=== PATIENT | male | born 1935 | race Caucasian/White ===

== ENCOUNTER 2017-06-14 18:38 | Emergency (ER) | payer OTHER ==
[2017-06-14 19:19] VITALS: BP 143/81; PULSE 82; TEMP 97.7; BMI 21.4
--- NOTE | 2017-06-14 19:53 | PDOC ---
History of Present Illness - General Chief Complaint: Wound Stated Complaint: SCROTAL BLEED Time Seen by Provider: 06/14/17 19:15 History Source: Patient - History of Present Illness Initial Comments: 06/14/17 19:48 82 year old male resident of "[facility]" with history of hypertension, BPH prior to arrival noted scrotal bleed from a varicosity?. currently no active bleeding. patient also noted to have skin irritation around the umbilicus. denies scrotal pain, penile pain, urinary symptoms. Past History - Past Medical History Allergies/Adverse Reactions: Allergies Allergy/AdvReac Type Severity Reaction Status Date / Time No Known Allergies Allergy Verified 06/14/17 18:46 Home Medications: Ambulatory Orders Aspirin 81 mg PO DAILY 06/14/17 Calcium Carbonate [Oyster Shell Calcium] 500 mg PO DAILY 06/14/17 Cholecalciferol (Vitamin D3) [Vitamin D3 -] 1,000 unit PO DAILY 06/14/17 Docusate Sodium [Colace] 200 mg PO DAILY PRN 06/14/17 Ferrous Sulfate [Iron] 325 mg PO DAILY 06/14/17 Finasteride [Proscar] 5 mg PO DAILY 06/14/17 Hypromellose 0.5% Opth Soln [Artificial Tears] 1 drop OU DAILY 06/14/17 Lisinopril [Prinivil -] 40 mg PO DAILY 06/14/17 Loratadine [Claritin -] 10 mg PO DAILY 06/14/17 Nystatin/Triamcinolone Top Cr [Mycolog II -] 1 applic TP TID #1 tube 06/14/17 Nystatin/Triamcinolone Top Cr [Mycolog II -] 1 gm TP BID #1 tube 06/14/17 Oxymetazoline 0.05% Nasal Soln [Afrin -] 2 spray NS BID 06/14/17 Tamsulosin HCl [Flomax] 0.4 mg PO DAILY 06/14/17 COPD: No Dementia: Yes Disorders: Yes (prostatitis) HTN: Yes Other medical history: bilat detached retinas - Suicide/Smoking/Psychosocial Hx Smoking History: Unknown if ever smoked *Physical Exam - Vital Signs Last Vital Signs Temp Pulse Resp BP Pulse Ox 97.7 F 82 18 143/81 98 06/14/17 19:05 06/14/17 19:05 06/14/17 19:05 06/14/17 19:05 06/14/17 19:05 - Physical Exam General Appearance: Yes: Appropriately Dressed Gastrointestinal/Abdominal: positive: Normal Bowel Sounds, Soft Male Genitalia: positive: normal genitalia, other (rectal area external hemorrhoid no active bleeding noted. ) Extremity: positive: Normal Capillary Refill, Normal Inspection, Normal Range of Motion Integumentary: positive: Erythema (and moist umbilicus "fungal appearance") Neurologic: positive: Fully Oriented, Alert, Normal Mood/Affect Medical Decision Making - Medical Decision Making 06/14/17 20:10 Scrotal skin irritation; umbilical angely infection P: bacitracin mycolog II pmd follow up *DC/Admit/Observation/Transfer Diagnosis at time of Disposition: Umbilical discharge, Candidal dermatitis - Discharge Dispostion Disposition: HOME - Prescriptions Prescriptions: Bacitracin - [Bacitracin Topical Ointment -] 1 applic TP BID #1 tube Nystatin/Triamcin [Nystatin-Triamcinolone Cream] 1 applic TP QID #1 tube - Referrals Referrals: Mai Camargo MD [Primary Care Provider] - - Patient Instructions Printed Discharge Instructions: DI for Wound Infection Additional Instructions: apply nystatin / traimcinolone 3- 4 times daily to the umbilical area apply bacitracin 3 times daily to the scrotal area. - Post Discharge Activity
== END 2017-06-14 20:47 ==
LOC: JER 18:38
DX: I86.1 Scrotal varices (principal); B37.2 Candidiasis of skin and nail; I10 Essential (primary) hypertension; N40.0 Benign prostatic hyperplasia without lower urinary tract symptoms
CPT/HCPCS: 99281-25

== ENCOUNTER 2017-08-31 17:15 | Emergency (ER) | payer OTHER ==
[2017-08-31 17:44] VITALS: TEMP 98.1; BMI 19.6
--- NOTE | 2017-08-31 18:07 | PDOC ---
Attending Attestation - Resident Resident Name: Parag Perez - ED Attending Attestation I have performed the following: I have examined & evaluated the patient, The case was reviewed & discussed with the resident, I agree w/resident's findings & plan, Exceptions are as noted
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
[2017-08-31 21:02] VITALS: BP 130/54; PULSE 84
== END 2017-08-31 21:09 | disposition home or self-care (01) ==
LOC: JER 17:15
DX: S01.81XA Laceration without foreign body of other part of head, initial encounter (principal); S00.83XA Contusion of other part of head, initial encounter; S40.022A Contusion of left upper arm, initial encounter; Y04.2XXA Assault by strike against or bumped into by another person, initial encounter; Y93.89 Activity, other specified; Y92.128 Other place in nursing home as the place of occurrence of the external cause; I10 Essential (primary) hypertension; F03.90 Unspecified dementia, unspecified severity, without behavioral disturbance, psychotic disturbance, mood disturbance, and anxiety; N41.8 Other inflammatory diseases of prostate; Z79.82 Long term (current) use of aspirin
CPT/HCPCS: 70450-TC; 70486-TC; 73060-TC-LT-FY; 99283-25

== ENCOUNTER 2017-10-11 07:41 | Inpatient (IN) | payer OTHER ==
--- NOTE | 2017-10-11 07:49 | PDOC ---
History of Present Illness - General Chief Complaint: Injury Stated Complaint: FALL Time Seen by Provider: 10/11/17 07:48 - History of Present Illness Initial Comments: 10/11/17 08:01 Ms. Márquez is an 82 yo male w/ pmh of HTN and dementia who presents for evaluation of fall this morning. He reports he was walking to the bathroom when he had a mechanical fall and now has left sided leg pain. He usually ambulates with a rolater. Denies hitting his head or LOC. The patient denies chest pain, shortness of breath, headache and dizziness. Denies fever, chills, nausea, vomit, diarrhea and constipation. Denies dysuria, frequency, urgency and hematuria. Allergies: NKDA Past History - Past Medical History Allergies/Adverse Reactions: Allergies Allergy/AdvReac Type Severity Reaction Status Date / Time No Known Allergies Allergy Verified 10/11/17 07:50 Home Medications: Ambulatory Orders Aspirin 81 mg PO DAILY 06/14/17 Calcium Carbonate [Oyster Shell Calcium] 500 mg PO DAILY 06/14/17 Cholecalciferol (Vitamin D3) [Vitamin D3 -] 1,000 unit PO DAILY 06/14/17 Docusate Sodium [Colace] 200 mg PO DAILY PRN 06/14/17 Ferrous Sulfate [Iron] 325 mg PO DAILY 06/14/17 Finasteride [Proscar] 5 mg PO DAILY 06/14/17 Lisinopril [Prinivil -] 40 mg PO DAILY 06/14/17 Loratadine [Claritin -] 10 mg PO DAILY 06/14/17 Nystatin/Triamcinolone Top Cr [Mycolog II -] 1 gm TP BID #1 tube 06/14/17 Oxymetazoline 0.05% Nasal Soln [Afrin -] 2 spray NS BID 06/14/17 Tamsulosin HCl [Flomax] 0.4 mg PO DAILY 06/14/17 Bacitracin - [Bacitracin Topical Ointment -] 1 applic TP TID #1 applic 06/15/17 COPD: No Dementia: Yes Disorders: Yes (prostatitis) HTN: Yes - Suicide/Smoking/Psychosocial Hx Smoking History: Never smoked Have you smoked in the past 12 months: No Hx Alcohol Use: No Drug/Substance Use Hx: No Substance Use Type: None Review of Systems - Review of Systems Comments:: 10/11/17 09:00 GENERAL/CONSTITUTIONAL: No fever or chills. No weakness. HEAD, EYES, EARS, NOSE AND THROAT: No change in vision. No ear pain or discharge. No sore throat. CARDIOVASCULAR: No chest pain or shortness of breath RESPIRATORY: No cough, wheezing, or hemoptysis. GASTROINTESTINAL: No nausea, vomiting, diarrhea or constipation. GENITOURINARY: No dysuria, frequency, or change in urination. MUSCULOSKELETAL: +Left sided leg pain; difficulty ranging leg at this time. No neck or back pain. SKIN: No rash NEUROLOGIC: No headache, vertigo, loss of consciousness, or change in strength/ sensation. ENDOCRINE: No increased thirst. No abnormal weight change HEMATOLOGIC/LYMPHATIC: No anemia, easy bleeding, or history of blood clots. ALLERGIC/IMMUNOLOGIC: No hives or skin allergy. *Physical Exam - Physical Exam Comments: 10/11/17 09:00 GENERAL: Awake, alert, and fully oriented, in no acute distress HEAD: No signs of trauma, normocephalic, atraumatic EYES: PERRLA, EOMI, sclera anicteric, conjunctiva clear ENT: Auricles normal inspection, hearing grossly normal, nares patent, oropharynx clear without exudates. Moist mucosa NECK: Normal ROM, supple, no lymphadenopathy, JVD, or masses LUNGS: No distress, speaks full sentences, clear to auscultation bilaterally HEART: Regular rate and rhythm, normal S1 and S2, no murmurs, rubs or gallops, peripheral pulses normal and equal bilaterally. ABDOMEN: Soft, nontender, normoactive bowel sounds. No guarding, no rebound. No masses EXTREMITIES: +Difficulty ranging due to pain of left leg. Otherwise normal inspection, no edema. No clubbing or cyanosis. NEUROLOGICAL: Cranial nerves II through XII grossly intact. Normal speech, normal gait, no focal sensorimotor deficits SKIN: Warm, Dry, normal turgor, no rashes or lesions noted. Medical Decision Making - Medical Decision Making 10/11/17 12:45 Mr. Márquez is an 82 yo male w/ pmh as described who presents for evaluation post fall. Imaging entirely negative for acute process. Patient unable to walk at this time, however. Paging inpatient team for admission for further ambulatory observation. *DC/Admit/Observation/Transfer Diagnosis at time of Disposition: Unable to ambulate Fall Qualifiers: Encounter type: initial encounter Qualified Code(s): W19.XXXA - Unspecified fall, initial encounter - Discharge Dispostion Condition at time of disposition: Fair Decision to Admit order: Yes - Referrals Referrals: ON STAFF,NOT [Primary Care Provider] - - Patient Instructions Printed Discharge Instructions: How to Prevent Falls Additional Instructions: Please return to ER if any difficulty walking, fever, chills, altered mental status, or other concerning symptoms. Follow-up with primary care provider as needed for further evaluation. - Post Discharge Activity
--- NOTE | 2017-10-11 07:59 | PDOC ---
Attending Attestation - HPI HPI: 10/11/17 08:22 The patient is a 82 year old male, from [facility], with a significant past medical history of hypertension and dementia, who presents to the emergency department s/p unwitnessed mechanical fall earlier this morning. The patient reports he was ambulating to the bathroom with his walker, when suddenly he lost his balance and fell, landing on his left leg. He reports associated left leg pain, but denies any head trauma, LOC changes in vision, headache, dizziness, lightheadedness, neck/back/ or hip pain. He denies any other injuries. Allergies: NKDA - Medical Decision Making 10/11/17 08:22 Documentation prepared by Gee Bui, acting as behavioral medical director for Rosario Anna MD. <Gee Bui - Last Filed: 10/11/17 08:43> - Resident Resident Name: Carlos Morales - ED Attending Attestation I have performed the following: I have examined & evaluated the patient, The case was reviewed & discussed with the resident, I agree w/resident's findings & plan, Exceptions are as noted - Physicial Exam PE: GENERAL: Awake, alert, and fully oriented, in no acute distress HEAD: Small ecchymosis to the L cheek. EYES: PERRLA, EOMI, sclera anicteric, conjunctiva clear ENT: Auricles normal inspection, hearing grossly normal, nares patent, oropharynx clear without exudates. Moist mucosa NECK: Normal ROM, supple, no lymphadenopathy, JVD, or masses LUNGS: Breath sounds equal, clear to auscultation bilaterally. No wheezes, and no crackles HEART: Regular rate and rhythm, normal S1 and S2, no murmurs, rubs or gallops ABDOMEN: Soft, nontender, normoactive bowel sounds. No guarding, no rebound. No masses EXTREMITIES: +Ecchymoses to B/L hips and R knee with skin abrasions to the knees B/L. Normal range of motion. 1+ pitting edema to feet B/L. No clubbing or cyanosis. No cords, erythema, or tenderness. NEUROLOGICAL: Cranial nerves II through XII grossly intact. Normal speech. Strength and sensation intact. SKIN: Warm, Dry, normal turgor, no rashes or lesions noted. - Medical Decision Making Pt presents s/p mechanical fall, hit both hips and his head. Will obtain LE x- rays as well as CTH and c-spine. If wnl, will DC home. <Rosario Anna - Last Filed: 10/11/17 10:20>
[2017-10-11] MEDS ORDERED: ACETAMINOPHEN 500 MG TABLET (FP) PO ONE (08:14)
[2017-10-11] MEDS ORDERED: ACETAMINOPHEN 325 MG TABLET (FP) ONE (08:22)
[2017-10-11 15:53] LABS: URINE APPEARANCE SLCLOUDY; URINE BILIRUBIN NEGATIVE (<2.0 mg/dL); URINE COLOR DKYELLOW; URINE GLUCOSE (UA) NEGATIVE (NEGATIVE); URINE KETONE NEGATIVE (NEGATIVE); URINE LEUK ESTERASE NEGATIVE (NEGATIVE); URINE NITRITE NEGATIVE (NEGATIVE); URINE UROBILINOGEN NEGATIVE mg/dL (0.2-1.0)
[2017-10-11 15:54] LABS: URINE PROTEIN 2+ (NEGATIVE)
[2017-10-11 16:00] LABS: BASO % 0.1 % (0-2.0); EOS % 0.1 % (0-4.5); HEMATOCRIT 35.7 % (35.4-49); HEMOGLOBIN 11.8 GM/dL (11.7-16.9); LYMPH % 62.2 % (8-40); MCH 33.2 pg (25.7-33.7); MCHC 33.1 g/dl (32.0-35.9); MEAN CELL VOLUME 100.1 fl (80-96); MEAN PLT VOLUME 9.5 fl (7.5-11.1); NEUT % 34.6 % (42.8-82.8); RBC 3.57 M/mm3 (4.00-5.60); RDW 15.8 % (11.9-15.9); WHITE BLOOD COUNT 22.7 K/mm3 (4.0-10.0)
[2017-10-11 16:38] LABS: ALBUMIN 2.7 g/dl (3.4-5.0); ANION GAP 10 (8-16); BLOOD UREA NITROGEN 38 mg/dL (7-18); CALCIUM 8.6 mg/dL (8.5-10.1); CHLORIDE 107 mmol/L (98-107); CO2 23 mmol/L (21-32); CREATININE 2.3 mg/dL (0.7-1.3); GLUCOSE,RANDOM 78 mg/dL (74-106); POTASSIUM 4.5 mmol/L (3.5-5.1); SGOT/AST 89 U/L (15-37); SGPT/ALT 34 U/L (12-78); SODIUM 140 mmol/L (136-145)
[2017-10-11 16:51] LABS: ALK PHOS 149 U/L (45-117); BILIRUBIN,TOTAL 2.6 mg/dL (0.2-1.0); TOT PROT 7.7 g/dl (6.4-8.2)
[2017-10-11 17:06] LABS: URINE BACTERIA RARE /hpf (NONE SEEN); URINE MUCUS RARE
[2017-10-11] MEDS ORDERED: DOCUSATE SODIUM 100 MG CAPSULE (FP) PO PRN (20:05)
[2017-10-11] MEDS ORDERED: ACETAMINOPHEN 325 MG TABLET (FP) PO PRN (20:06)
--- NOTE | 2017-10-11 20:13 | HP ---
Admitting History and Physical - Primary Care Physician PCP: Khanh Vargas - Admission Chief Complaint: fall History of Present Illness: 82 year old male, from [facility], with a significant past medical history of hypertension and dementia, who presents to the emergency department s/p unwitnessed mechanical fall earlier this morning. The patient reports he was ambulating to the bathroom with his walker, when suddenly he lost his balance and fell, landing on his left leg. He reports associated left leg pain, but denies any head trauma, LOC changes in vision, headache, dizziness, lightheadedness, neck/back/ or hip pain. He denies any other injuries. 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 Cardiovascular: Yes: HTN - Advance Directives Advance Directives: Yes: MOLST - Smoking History Smoking history: Never smoked Have you smoked in the past 12 months: No Aproximately how many cigarettes per day: 0 - Alcohol/Substance Use Hx Alcohol Use: No Home Medications - Allergies Allergies/Adverse Reactions: Allergies Allergy/AdvReac Type Severity Reaction Status Date / Time No Known Allergies Allergy Verified 10/11/17 07:50 - Home Medications Home Medications: Ambulatory Orders Aspirin 81 mg PO DAILY 06/14/17 Calcium Carbonate [Oyster Shell Calcium] 500 mg PO DAILY 06/14/17 Cholecalciferol (Vitamin D3) [Vitamin D3 -] 1,000 unit PO DAILY 06/14/17 Docusate Sodium [Colace] 200 mg PO DAILY PRN 06/14/17 Ferrous Sulfate [Iron] 325 mg PO DAILY 06/14/17 Finasteride [Proscar] 5 mg PO DAILY 06/14/17 Lisinopril [Prinivil -] 40 mg PO DAILY 06/14/17 Loratadine [Claritin -] 10 mg PO DAILY 06/14/17 Nystatin/Triamcinolone Top Cr [Mycolog II -] 1 gm TP BID #1 tube 06/14/17 Oxymetazoline 0.05% Nasal Soln [Afrin -] 2 spray NS BID 06/14/17 Tamsulosin HCl [Flomax] 0.4 mg PO DAILY 06/14/17 Bacitracin - [Bacitracin Topical Ointment -] 1 applic TP TID #1 applic 06/15/17 Physical Examination Vital Signs: Vital Signs Temperature 97.8 F 10/11/17 15:53 Pulse Rate 97 H 10/11/17 15:53 Respiratory Rate 16 10/11/17 15:53 Blood Pressure 127/74 10/11/17 15:53 O2 Sat by Pulse Oximetry (%) 99 10/11/17 15:53 Constitutional: Yes: Calm HENT: Yes: Atraumatic Neck: Yes: Supple Cardiovascular: Yes: Regular Rate and Rhythm Respiratory: Yes: CTA Bilaterally Gastrointestinal: Yes: Normal Bowel Sounds Extremities: Yes: Other (abrasion on both knees old healing bruises and rash on both legs more on left leg and left groin) Edema: Yes Edema: LLE: 1+ Peripheral Pulses WNL: Yes Neurological: Yes: Alert Labs: CBC, BMP 10/11/17 15:35 10/11/17 15:35 Assessment/Plan Laboratory Tests 10/11/17 10/11/17 10/11/17 15:35 15:35 15:35 WBC 22.7 H RBC 3.57 L Hgb 11.8 Hct 35.7 MCV 100.1 H MCH 33.2 MCHC 33.1 RDW 15.8 MPV 9.5 Absolute Neuts (auto) 7.8 Neutrophils % 34.6 L Lymphocytes % 62.2 H Monocytes % 3.0 L Eosinophils % 0.1 Basophils % 0.1 Nucleated RBC % 0 Sodium 140 Potassium 4.5 Chloride 107 Carbon Dioxide 23 Anion Gap 10 BUN 38 H Creatinine 2.3 H Creat Clearance w eGFR 27.29 Random Glucose 78 Calcium 8.6 Total Bilirubin 2.6 H AST 89 H ALT 34 Alkaline Phosphatase 149 H Creatine Kinase 1448 H Creatine Kinase Index 1.1 CK-MB (CK-2) 17.215 H Troponin I 0.09 H Total Protein 7.7 Albumin 2.7 L Urine Color Dkyellow Urine Appearance Slcloudy Urine pH 5.0 Ur Specific Bimble 1.021 Urine Protein 2+ H Urine Glucose (UA) Negative Urine Ketones Negative Urine Blood 3+ H Urine Nitrite Negative Urine Bilirubin Negative Urine Urobilinogen Negative Ur Leukocyte Esterase Negative Urine WBC (Auto) 2 Urine RBC (Auto) 2 Urine Bacteria Rare Urine Mucus Rare Active Medications Generic Name Dose Route Start Last Admin Trade Name Freq PRN Reason Stop Dose Admin Acetaminophen 650 mg 10/11/17 20:06 Tylenol - PO Q6H PRN FEVER Aspirin 81 mg 10/12/17 10:00 Asa - PO DAILY DAVIDA Bacitracin 1 applic 10/11/17 22:00 Bacitracin - TP TID [facility] Docusate Sodium 200 mg 10/11/17 20:05 Colace - PO DAILY PRN CONSTIPATION Finasteride 5 mg 10/12/17 10:00 Proscar - PO DAILY [facility] Non-Formulary Medication 40 mg 10/12/17 10:00 Lisinopril [Prinivil -] PO DAILY [facility] Tamsulosin HCl 0.4 mg 10/12/17 10:00 Flomax - PO DAILY DAVIDA
[2017-10-11 21:36] LABS: PLATELET COUNT 39 K/MM3 (134-434)
[2017-10-11 21:37] LABS: PLATELET ESTIMATE MOD DECREASED
[2017-10-11] MEDS ORDERED: cefTRIAXone SODIUM 1 GM VIAL ONE (22:17)
[2017-10-11] MEDS ORDERED: DEXTROSE 5%-WATER - 50 ML IVPB ONE (22:17)
[2017-10-11] MEDS: SODIUM CHLORIDE 1,000 ML IV SCH (22:19)
[2017-10-11] MEDS: BACITRACIN 15 GM TUBE TOPICAL OINTMENT TP SCH (22:20)
[2017-10-11] MEDS: CEFTRIAXONE 1 GM in DEXTROSE 5%-WATER - 50 ML IVPB SCH (22:24)
[2017-10-12] MEDS: BACITRACIN 15 GM TUBE TOPICAL OINTMENT TP SCH ×3 (05:57→21:14)
[2017-10-12 06:58] LABS: BASO % 0.1 % (0-2.0); EOS % 0.1 % (0-4.5); HEMATOCRIT 32.8 % (35.4-49); HEMOGLOBIN 10.7 GM/dL (11.7-16.9); LYMPH % 75.2 % (8-40); MCH 32.7 pg (25.7-33.7); MCHC 32.8 g/dl (32.0-35.9); MEAN CELL VOLUME 99.8 fl (80-96); MEAN PLT VOLUME 10.2 fl (7.5-11.1); MONO % 3.2 % (3.8-10.2); NEUT % 21.4 % (42.8-82.8); RBC 3.28 M/mm3 (4.00-5.60); RDW 16.1 % (11.9-15.9)
[2017-10-12 07:08] LABS: PLATELET COUNT 32 K/MM3 (134-434); WHITE BLOOD COUNT 37.2 K/mm3 (4.0-10.0)
[2017-10-12 07:17] LABS: ALBUMIN 2.1 g/dl (3.4-5.0); BLOOD UREA NITROGEN 51 mg/dL (7-18); CALCIUM 8.3 mg/dL (8.5-10.1); CHLORIDE 108 mmol/L (98-107); POTASSIUM 4.1 mmol/L (3.5-5.1); SODIUM 140 mmol/L (136-145)
[2017-10-12 07:22] LABS: ALK PHOS 92 U/L (45-117); ANION GAP 14 (8-16); CO2 18 mmol/L (21-32); CREATININE 2.6 mg/dL (0.7-1.3); GLUCOSE,RANDOM 53 mg/dL (74-106); SGOT/AST 84 U/L (15-37); SGPT/ALT 29 U/L (12-78); TOT PROT 6.5 g/dl (6.4-8.2)
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
[2017-10-12] MEDS ORDERED: cefTRIAXone SODIUM 1 GM VIAL ONE (08:20)
[2017-10-12] MEDS ORDERED: DEXTROSE 5%-WATER - 50 ML IVPB ONE ×3 (08:20→16:47)
[2017-10-12] MEDS: oxyCODONE HCL 5 MG TABLET PO PRN (09:48)
[2017-10-12] MEDS: TAMSULOSIN HCL 0.4 MG CAP.ER.24H (FP) PO SCH (09:51)
[2017-10-12] MEDS: CEFTRIAXONE 1 GM in DEXTROSE 5%-WATER - 50 ML IVPB SCH (09:52)
[2017-10-12] MEDS ORDERED: LISINOPRIL 20 MG TABLET (FP) PO SCH (10:00)
[2017-10-12] MEDS ORDERED: ASPIRIN 81 MG CHEWABLE TABLETS PO SCH (10:00)
[2017-10-12] MEDS ORDERED: FINASTERIDE 5 MG TABLET (FP) PO SCH (10:00)
[2017-10-12] MEDS: metoPROLOL SUCCINATE 25 MG TAB.SR.24H (FP) PO SCH (11:29)
[2017-10-12] MEDS ORDERED: SODIUM CHLORIDE 250 ML IV ONE ×2 (11:45→13:00)
--- NOTE | 2017-10-12 13:13 | CONSULT ---
Consult Consult Specialty:: Hematology - History of Present Illness History of Present Illness: 82 year old s/p fall. Is here from [place]. 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 Cardio/Vascular: Yes: HTN - Alcohol/Substance Use Hx Alcohol Use: No - Smoking History Smoking history: Never smoked Have you smoked in the past 12 months: No Aproximately how many cigarettes per day: 0 Home Medications - Allergies Allergies/Adverse Reactions: Allergies Allergy/AdvReac Type Severity Reaction Status Date / Time No Known Allergies Allergy Verified 10/11/17 07:50 - Home Medications Home Medications: Ambulatory Orders Aspirin 81 mg PO DAILY 06/14/17 Calcium Carbonate [Oyster Shell Calcium] 500 mg PO DAILY 06/14/17 Cholecalciferol (Vitamin D3) [Vitamin D3 -] 1,000 unit PO DAILY 06/14/17 Docusate Sodium [Colace] 200 mg PO DAILY PRN 06/14/17 Ferrous Sulfate [Iron] 325 mg PO DAILY 06/14/17 Finasteride [Proscar] 5 mg PO DAILY 06/14/17 Lisinopril [Prinivil -] 40 mg PO DAILY 06/14/17 Loratadine [Claritin -] 10 mg PO DAILY 06/14/17 Nystatin/Triamcinolone Top Cr [Mycolog II -] 1 gm TP BID #1 tube 06/14/17 Oxymetazoline 0.05% Nasal Soln [Afrin -] 2 spray NS BID 06/14/17 Tamsulosin HCl [Flomax] 0.4 mg PO DAILY 06/14/17 Bacitracin - [Bacitracin Topical Ointment -] 1 applic TP TID #1 applic 06/15/17 Family Disease History - Family Disease History Family Disease History: CA: Mother (pancreatic CA) Other Family History: History of CAD and [place] Physical Exam Vital Signs: Vital Signs Temperature 99.6 F 10/12/17 09:03 Pulse Rate 98 H 10/12/17 11:30 Respiratory Rate 20 10/12/17 11:30 Blood Pressure 80/50 10/12/17 11:30 O2 Sat by Pulse Oximetry (%) 93 L 10/12/17 05:25 Constitutional: Yes: Calm, Thin Eyes: Yes: Conjunctiva Clear HENT: Yes: Atraumatic, Normocephalic Neck: Yes: Supple Cardiovascular: Yes: Regular Rate and Rhythm Respiratory: Yes: Regular, CTA Bilaterally Gastrointestinal: Yes: Normal Bowel Sounds, Soft Labs: CBC, BMP 10/12/17 05:50 10/12/17 05:50 Assessment/Plan Leucocytosis/Thrombocytopenia: Check LDH/B12/folate/SPEP/FLOW/FISH check coags r/o sepsis, ID consult. US Abdomen. Unknown baseline counts JOHANA?CKD consider renal c/s Hyper Bili: Check direct bili consider GI eval. Pt with dementia.
--- NOTE | 2017-10-12 13:18 | EKG ---
Test Reason : Blood Pressure : / mmHG Vent. Rate : 105 BPM Atrial Rate : 105 BPM P-R Int : 180 ms QRS Dur : 084 ms QT Int : 314 ms P-R-T Axes : 073 -30 055 degrees QTc Int : 415 ms SINUS TACHYCARDIA NONSPECIFIC ST AND T WAVE ABNORMALITY ABNORMAL ECG NO PREVIOUS ECGS AVAILABLE Confirmed by MD CAROLEE, BLAIR ([id number]) on 10/12/2017 1:17:34 PM Referred By: Confirmed By:BLAIR ZARCO MD
[2017-10-12] MEDS ORDERED: PIPERACILLIN/TAZOBACTAM 2.25 GM VIAL IVPB ONE ×2 (13:28→16:47)
[2017-10-12] MEDS: PIPERACILLIN/TAZOB 2.25 GM 2.25 GM in DEXTROSE 5%-WATER - 50 ML IVPB SCH ×2 (13:57→17:54)
[2017-10-12 14:00] LABS: INR 1.55 (0.82-1.09); PROTHROMBIN TIME (PATIENT) 17.5 SEC (9.7-13.0)
[2017-10-12 14:05] LABS: BILIRUBIN,DIRECT 0.9 mg/dL (0.0-0.2)
[2017-10-12] MEDS: CLINDAMYCIN 300 MG PREMIX IVPB 300 MG/50 ML BAG IVPB SCH ×2 (15:01→17:53)
[2017-10-12 16:24] LABS: URINE APPEARANCE CLOUDY; URINE BILIRUBIN NEGATIVE (<2.0 mg/dL); URINE COLOR AMBER; URINE GLUCOSE (UA) NEGATIVE (NEGATIVE); URINE KETONE NEGATIVE (NEGATIVE); URINE LEUK ESTERASE NEGATIVE (NEGATIVE); URINE NITRITE NEGATIVE (NEGATIVE); URINE UROBILINOGEN NEGATIVE mg/dL (0.2-1.0)
[2017-10-12 16:51] LABS: URINE PROTEIN 2+ (NEGATIVE)
[2017-10-12 16:56] LABS: EPI CELLS RARE /HPF (FEW); URINE BACTERIA RARE /hpf (NONE SEEN); URINE MUCUS RARE
--- NOTE | 2017-10-12 19:41 | PN ---
Progress Note, Physician History of Present Illness: comfortable - Current Medication List Current Medications: Active Medications Acetaminophen (Tylenol -) 650 mg PO Q6H PRN PRN Reason: FEVER Last Admin: 10/12/17 09:49 Dose: 650 mg Aspirin (Asa -) 81 mg PO DAILY [facility] Last Admin: 10/12/17 09:51 Dose: 81 mg Bacitracin (Bacitracin -) 1 applic TP TID [facility] Last Admin: 10/12/17 13:57 Dose: 1 applic Docusate Sodium (Colace -) 200 mg PO DAILY PRN PRN Reason: CONSTIPATION Finasteride (Proscar -) 5 mg PO DAILY [facility] Last Admin: 10/12/17 09:51 Dose: 5 mg Sodium Chloride (Normal Saline -) 1,000 mls @ 100 mls/hr IV ASDIR [facility] Last Admin: 10/11/17 22:19 Dose: 75 mls/hr Clindamycin Phosphate (Cleocin 300 Mg Premix Ivpb) 300 mg in 50 mls @ 100 mls/ hr IVPB Q8H-IV [facility]; Protocol Last Admin: 10/12/17 17:53 Dose: 100 mls/hr Piperacillin Sod/Tazobactam (Sod 2.25 gm/ Dextrose) 50 mls @ 100 mls/hr IVPB Q8H-IV [facility]; Protocol Last Admin: 10/12/17 17:54 Dose: 100 mls/hr Metoprolol Succinate (Toprol Xl -) 25 mg PO DAILY [facility] Last Admin: 10/12/17 11:29 Dose: Not Given Oxycodone HCl (Roxicodone -) 5 mg PO Q6H PRN PRN Reason: PAIN SCALE 1-6 Last Admin: 10/12/17 09:48 Dose: 5 mg Tamsulosin HCl (Flomax -) 0.4 mg PO DAILY@0830 [facility] Last Admin: 10/12/17 09:51 Dose: 0.4 mg - Objective Vital Signs: Vital Signs Temperature 99.6 F 10/12/17 13:55 Pulse Rate 96 H 10/12/17 17:00 Respiratory Rate 19 10/12/17 17:00 Blood Pressure 90/48 10/12/17 17:00 O2 Sat by Pulse Oximetry (%) 98 10/12/17 09:00 HENT: Yes: Atraumatic Neck: Yes: Supple Cardiovascular: Yes: Regular Rate and Rhythm Respiratory: Yes: CTA Bilaterally Gastrointestinal: Yes: Normal Bowel Sounds Extremities: Yes: Other (bruises and abrasions on knees and legs are healing) Edema: No Peripheral Pulses WNL: Yes Neurological: Yes: Alert, Oriented Labs: CBC, BMP 10/12/17 05:50 10/12/17 05:50 INR, PTT INR 1.55 (0.82-1.09) H 10/12/17 13:25 Fibrinogen 359.0 mg/dL (238-498) 10/12/17 13:25 Problem List - Problems (1) CKD (chronic kidney disease) Assessment/Plan: will monitor on ivf nephro on board Code(s): N18.9 - CHRONIC KIDNEY DISEASE, UNSPECIFIED (2) Dementia Assessment/Plan: stable Code(s): F03.90 - UNSPECIFIED DEMENTIA WITHOUT BEHAVIORAL DISTURBANCE (3) HTN (hypertension) Assessment/Plan: on hold due to low bp Code(s): I10 - ESSENTIAL (PRIMARY) HYPERTENSION (4) Thrombocytopenia Assessment/Plan: monitor need platelet transfusion hematology on board Code(s): D69.6 - THROMBOCYTOPENIA, UNSPECIFIED (5) Superficial laceration of face Code(s): S01.81XA - LACERATION W/O FOREIGN BODY OF OTH PART OF HEAD, INIT ENCNTR (6) Leukocytosis Assessment/Plan: will monitor Code(s): D72.829 - ELEVATED WHITE BLOOD CELL COUNT, UNSPECIFIED
[2017-10-12] MEDS: SODIUM CHLORIDE 1,000 ML IV SCH ×2 (21:14→23:45)
[2017-10-12] MEDS ORDERED: MUPIROCIN 2% TOPICAL OINTMENT FOR DECOLONIZATION NS SCH (22:00)
[2017-10-12] MEDS ORDERED: CHLORHEXIDINE GLUCONATE 4% CLEANSER FOR DECOLONIZATION TP SCH (22:00)
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
[2017-10-12] MEDS ORDERED: SODIUM CHLORIDE 500 ML IV STA ×2 (22:48→23:22)
[2017-10-12] MEDS ORDERED: ACETAMINOPHEN 1000 MG/100 ML VIAL (NON FORMULARY) IVPB ONE (22:48)
[2017-10-13] MEDS ORDERED: PIPERACILLIN/TAZOBACTAM 2.25 GM VIAL IVPB ONE ×3 (00:26→17:52)
[2017-10-13] MEDS ORDERED: DEXTROSE 5%-WATER - 50 ML IVPB ONE ×3 (00:26→17:52)
[2017-10-13] MEDS ORDERED: PT OWN MED DRAWER 7, Y5N ONE ×2 (00:27→09:31)
[2017-10-13] MEDS ORDERED: DOPAMINE 400 MG/D5W - 400,000 MCG/250 ML INFUS.BAG IVPB ONE (01:02)
[2017-10-13] MEDS ORDERED: SODIUM CHLORIDE 0.9% 1000 ML INFUS.BAG IV ONE (01:05)
--- NOTE | 2017-10-13 01:46 | PN ---
Progress Note (short form) - Note Progress Note: Patient is an 82 year old male from [facility] with history of hypertension, dementia who presents after a mechanical fall. He was found to have elevated troponin and was in septic shock. I was called by the nurse to evaluate the patient for hypotension. He was given 1 L of NS. his BP didn't improve. he was started on peripheral Dopamine drip with a starting rate 5 mcg/kg/min with improvement of his BP to 100/60. Problem List - Problems (1) CKD (chronic kidney disease) Code(s): N18.9 - CHRONIC KIDNEY DISEASE, UNSPECIFIED (2) Demand ischemia Code(s): I24.8 - OTHER FORMS OF ACUTE ISCHEMIC HEART DISEASE (3) Dementia Code(s): F03.90 - UNSPECIFIED DEMENTIA WITHOUT BEHAVIORAL DISTURBANCE (4) Fall Code(s): W19.XXXA - UNSPECIFIED FALL, INITIAL ENCOUNTER Qualifiers: Encounter type: initial encounter Qualified Code(s): W19.XXXA - Unspecified fall, initial encounter (5) HTN (hypertension) Code(s): I10 - ESSENTIAL (PRIMARY) HYPERTENSION
[2017-10-13] MEDS: DOPAMINE 400 MG/D5W - 400,000 MCG/250 ML INFUS.BAG IVPB SCH ×2 (01:55→18:01)
[2017-10-13] MEDS: CLINDAMYCIN 300 MG PREMIX IVPB 300 MG/50 ML BAG IVPB SCH ×3 (01:56→19:00)
[2017-10-13] MEDS: PIPERACILLIN/TAZOB 2.25 GM 2.25 GM in DEXTROSE 5%-WATER - 50 ML IVPB SCH ×3 (01:56→18:01)
[2017-10-13 06:25] LABS: HEMATOCRIT 29.1 % (35.4-49); HEMOGLOBIN 9.2 GM/dL (11.7-16.9); MCH 32.4 pg (25.7-33.7); MCHC 31.7 g/dl (32.0-35.9); MEAN CELL VOLUME 102.3 fl (80-96); MEAN PLT VOLUME 11.3 fl (7.5-11.1); RBC 2.85 M/mm3 (4.00-5.60); RDW 16.3 % (11.9-15.9)
[2017-10-13 06:40] LABS: WHITE BLOOD COUNT 51.9 K/mm3 (4.0-10.0)
[2017-10-13 06:41] LABS: PLATELET COUNT 31 K/MM3 (134-434)
[2017-10-13 06:47] LABS: ALBUMIN 1.6 g/dl (3.4-5.0); ANION GAP 10 (8-16); BILIRUBIN,DIRECT 1.1 mg/dL (0.0-0.2); BILIRUBIN,TOTAL 1.8 mg/dL (0.2-1.0); BLOOD UREA NITROGEN 64 mg/dL (7-18); CALCIUM 7.3 mg/dL (8.5-10.1); CHLORIDE 112 mmol/L (98-107); CO2 19 mmol/L (21-32); CREATININE 2.8 mg/dL (0.7-1.3); GLUCOSE,RANDOM 112 mg/dL (74-106); LDH 153 U/L (87-241); POTASSIUM 4.1 mmol/L (3.5-5.1); SGOT/AST 52 U/L (15-37); SGPT/ALT 25 U/L (12-78); SODIUM 141 mmol/L (136-145); TOT PROT 5.5 g/dl (6.4-8.2)
[2017-10-13] MEDS: BACITRACIN 15 GM TUBE TOPICAL OINTMENT TP SCH (06:51)
[2017-10-13 06:59] LABS: ALK PHOS 83 U/L (45-117)
[2017-10-13 08:21] LABS: INR 1.26 (0.82-1.09)
[2017-10-13 08:24] LABS: ACTIVATED PTT 46.4 SECONDS (26.9-34.4)
[2017-10-13 08:40] LABS: FIBRINOGEN > 500.0 mg/dL (238-498)
[2017-10-13 08:40] LABS: BASO % 0.5 % (0-2.0); MONO % 2.3 % (3.8-10.2); NEUT % 24.2 % (42.8-82.8)
[2017-10-13] MEDS: metoPROLOL SUCCINATE 25 MG TAB.SR.24H (FP) PO SCH (10:18)
[2017-10-13] MEDS: TAMSULOSIN HCL 0.4 MG CAP.ER.24H (FP) PO SCH (10:19)
[2017-10-13] MEDS: MUPIROCIN 2% TOPICAL OINTMENT FOR DECOLONIZATION NS SCH (10:19)
[2017-10-13] MEDS ORDERED: SODIUM CHLORIDE 1,000 ML IV STA (11:41)
--- NOTE | 2017-10-13 12:00 | PN ---
Physical Exam: SUBJECTIVE: Patient seen and examined OBJECTIVE: Vital Signs Period Temp Pulse Resp BP Sys/Hammond Pulse Ox Last 24 Hr 97.1 F-99.6 F 81-105 14-22 68-106/42-75 95 GENERAL: The patient is awake, alert, and fully oriented, in no acute distress. HEAD: Normal with no signs of trauma. EYES: PERRL, extraocular movements intact, sclera anicteric, conjunctiva clear. No ptosis. ENT: Ears normal, nares patent, oropharynx clear without exudates, moist mucous membranes. NECK: Trachea midline, full range of motion, supple. LUNGS: Breath sounds equal, clear to auscultation bilaterally, no wheezes, no crackles, no accessory muscle use. HEART: Regular rate and rhythm, S1, S2 without murmur, rub or gallop. ABDOMEN: Soft, nontender, nondistended, normoactive bowel sounds, no guarding, no rebound, no hepatosplenomegaly, no masses. EXTREMITIES: 2+ pulses, warm, well-perfused, no edema. NEUROLOGICAL: Cranial nerves II through XII grossly intact. Normal speech, gait not observed. PSYCH: Normal mood, normal affect. SKIN: Warm, dry, normal turgor, no rashes or lesions noted Laboratory Results - last 24 hr 10/12/17 10/12/17 10/12/17 13:25 13:25 13:25 WBC RBC Hgb Hct MCV MCH MCHC RDW Plt Count MPV Absolute Neuts (auto) Neutrophils % Lymphocytes % Monocytes % Eosinophils % Basophils % Nucleated RBC % PT with INR 17.50 H INR 1.55 H PTT (Actin FS) 44.0 H Fibrinogen 359.0 Sodium Potassium Chloride Carbon Dioxide Anion Gap BUN Creatinine Creat Clearance w eGFR Random Glucose Lactic Acid Calcium Total Bilirubin Direct Bilirubin 0.9 H AST ALT Alkaline Phosphatase LD Total 163 Creatine Kinase Creatine Kinase Index CK-MB (CK-2) Troponin I Total Protein Albumin Vitamin B12 Serum Folate Urine Color Urine Appearance Urine pH Ur Specific Blakeslee Urine Protein Urine Glucose (UA) Urine Ketones Urine Blood Urine Nitrite Urine Bilirubin Urine Urobilinogen Ur Leukocyte Esterase Urine WBC (Auto) Urine RBC (Auto) Ur Epithelial Cells Urine Bacteria Urine Mucus Stool Occult Blood Blood Type AB POSITIVE Antibody Screen Negative 10/12/17 10/12/17 10/12/17 15:15 20:00 23:45 WBC RBC Hgb Hct MCV MCH MCHC RDW Plt Count MPV Absolute Neuts (auto) Neutrophils % Lymphocytes % Monocytes % Eosinophils % Basophils % Nucleated RBC % PT with INR INR PTT (Actin FS) Fibrinogen Sodium Potassium Chloride Carbon Dioxide Anion Gap BUN Creatinine Creat Clearance w eGFR Random Glucose Lactic Acid Calcium Total Bilirubin Direct Bilirubin AST ALT Alkaline Phosphatase LD Total Creatine Kinase 303 Creatine Kinase Index 1.5 CK-MB (CK-2) 4.845 H Troponin I 0.04 D Total Protein Albumin Vitamin B12 Serum Folate Urine Color Brenda Urine Appearance Cloudy Urine pH 5.0 Ur Specific Blakeslee 1.023 Urine Protein 2+ H Urine Glucose (UA) Negative Urine Ketones Negative Urine Blood 3+ H Urine Nitrite Negative Urine Bilirubin Negative Urine Urobilinogen Negative Ur Leukocyte Esterase Negative Urine WBC (Auto) 3 Urine RBC (Auto) 26 Ur Epithelial Cells Rare Urine Bacteria Rare Urine Mucus Rare Stool Occult Blood Negative Blood Type Antibody Screen 10/13/17 10/13/17 10/13/17 05:30 05:30 05:30 WBC 51.9 H* D RBC 2.85 L Hgb 9.2 L D Hct 29.1 L MCV 102.3 H MCH 32.4 MCHC 31.7 L RDW 16.3 H Plt Count 31 L* MPV 11.3 H D Absolute Neuts (auto) 12.6 Neutrophils % 24.2 L Lymphocytes % 73.0 H Monocytes % 2.3 L Eosinophils % 0.0 D Basophils % 0.5 D Nucleated RBC % 0 PT with INR INR PTT (Actin FS) Fibrinogen Sodium 141 Potassium 4.1 Chloride 112 H Carbon Dioxide 19 L Anion Gap 10 BUN 64 H D Creatinine 2.8 H Creat Clearance w eGFR 21.75 Random Glucose 112 H D Lactic Acid Calcium 7.3 L Total Bilirubin 1.8 H D Direct Bilirubin 1.1 H D AST 52 H D ALT 25 Alkaline Phosphatase 83 LD Total 153 Creatine Kinase Creatine Kinase Index CK-MB (CK-2) Troponin I Total Protein 5.5 L Albumin 1.6 L D Vitamin B12 1967 H Serum Folate 5 Urine Color Urine Appearance Urine pH Ur Specific [place]akes[place] Urine Protein Urine Glucose (UA) Urine Ketones Urine Blood Urine Nitrite Urine Bilirubin Urine Urobilinogen Ur Leukocyte Esterase Urine WBC (Auto) Urine RBC (Auto) Ur Epithelial Cells Urine Bacteria Urine Mucus Stool Occult Blood Blood Type Antibody Screen 10/13/17 10/13/17 10/13/17 05:30 07:20 07:20 WBC RBC Hgb Hct MCV MCH MCHC RDW Plt Count MPV Absolute Neuts (auto) Neutrophils % Lymphocytes % Monocytes % Eosinophils % Basophils % Nucleated RBC % PT with INR 14.20 H INR 1.26 H PTT (Actin FS) 46.4 H Fibrinogen > 500.0 H D Sodium Cancelled Potassium Cancelled Chloride Cancelled Carbon Dioxide Cancelled Anion Gap BUN Creatinine Creat Clearance w eGFR Random Glucose Lactic Acid 2.5 H* Calcium Total Bilirubin Direct Bilirubin AST ALT Alkaline Phosphatase LD Total Creatine Kinase Creatine Kinase Index CK-MB (CK-2) Troponin I Total Protein Albumin Vitamin B12 Serum Folate Urine Color Urine Appearance Urine pH Ur Specific Blakeslee Urine Protein Urine Glucose (UA) Urine Ketones Urine Blood Urine Nitrite Urine Bilirubin Urine Urobilinogen Ur Leukocyte Esterase Urine WBC (Auto) Urine RBC (Auto) Ur Epithelial Cells Urine Bacteria Urine Mucus Stool Occult Blood Blood Type Antibody Screen 10/13/17 07:20 WBC RBC Hgb Hct MCV MCH MCHC RDW Plt Count MPV Absolute Neuts (auto) Neutrophils % Lymphocytes % Monocytes % Eosinophils % Basophils % Nucleated RBC % PT with INR INR PTT (Actin FS) Fibrinogen Sodium Potassium Chloride Carbon Dioxide Anion Gap BUN Creatinine Creat Clearance w eGFR Random Glucose Lactic Acid Calcium Total Bilirubin Direct Bilirubin AST ALT Alkaline Phosphatase LD Total 158 Creatine Kinase Creatine Kinase Index CK-MB (CK-2) Troponin I Total Protein Albumin Vitamin B12 Serum Folate Urine Color Urine Appearance Urine pH Ur Specific Blakeslee Urine Protein Urine Glucose (UA) Urine Ketones Urine Blood Urine Nitrite Urine Bilirubin Urine Urobilinogen Ur Leukocyte Esterase Urine WBC (Auto) Urine RBC (Auto) Ur Epithelial Cells Urine Bacteria Urine Mucus Stool Occult Blood Blood Type Antibody Screen Active Medications Generic Name Dose Route Start Last Admin Trade Name Freq PRN Reason Stop Dose Admin Chlorhexidine Gluconate 1 applic 10/13/17 22:00 Hibiclens For Decolonization - TP HS DAVIDA Clindamycin Phosphate 300 mg in 50 mls @ 100 mls/hr 10/12/17 13:00 10/13/17 10:17 Cleocin 300 Mg Premix Ivpb IVPB 100 mls/hr Q8H-IV DAVIDA Administration Protocol Piperacillin Sod/Tazobactam 50 mls @ 100 mls/hr 10/12/17 13:00 10/13/17 10:18 Sod 2.25 gm/ Dextrose IVPB 100 mls/hr Q8H-IV DAVIDA Administration Protocol Sodium Chloride 1,000 mls @ 100 mls/hr 10/12/17 23:00 10/12/17 23:45 Normal Saline - IV 100 mls/hr ASDIR DAVIDA Administration Dopamine HCl/Dextrose 400,000 mcg in 250 mls @ 10.631 mls/hr 10/13/17 01:45 10/13/17 01:55 Dopamine 400 Mg/D5w - IVPB 5 mcg/kg/min TITR DAVIDA 10.631 mls/hr Administration Protocol 5 MCG/KG/MIN Sodium Chloride 1,000 mls @ 1,000 mls/hr 10/13/17 11:41 Normal Saline - IV 10/13/17 12:40 ASDIR STA Metoprolol Succinate 25 mg 10/12/17 10:00 10/13/17 10:18 Toprol Xl - PO Not Given DAILY DAVIDA Mupirocin 1 applic 10/13/17 10:00 10/13/17 10:19 Bactroban Ointment (For Decolonization) - NS 10/18/17 09:59 1 applic BID DAVIDA Administration Oxycodone HCl 5 mg 10/12/17 09:37 10/12/17 09:48 Roxicodone - PO 5 mg Q6H PRN Administration PAIN SCALE 1-6 ASSESSMENT/PLAN:
--- NOTE | 2017-10-13 12:20 | PN ---
Teaching Attending Note Name of Resident: Azul Leone ATTENDING PHYSICIAN STATEMENT I saw and evaluated the patient. I reviewed the resident's note and discussed the case with the resident. I agree with the resident's findings and plan as documented. SUBJECTIVE: Pt seen and examined in the ICU. Remains on dopamine gtt. Reports left leg pain. OBJECTIVE: Vital Signs Period Temp Pulse Resp BP Sys/Hammond Pulse Ox Last 24 Hr 97.1 F-99.6 F 81-105 14-22 68-106/42-75 95 Intake & Output 10/10/17 10/11/17 10/12/17 10/13/17 23:59 23:59 23:59 23:59 Intake Total 50 3600 1665 Output Total 50 200 Balance 50 3550 1465 Weight 56.699 kg Gen: NAD at rest Heart: RRR Lung: decreased breath sounds at the bases Abd: soft, nontender Ext: LLE weeping ulcers, painful to slightest touch, petechial rash CBC, BMP 10/13/17 05:30 10/13/17 05:30 Active Medications Chlorhexidine Gluconate (Hibiclens For Decolonization -) 1 applic TP HS DAVIDA Clindamycin Phosphate (Cleocin 300 Mg Premix Ivpb) 300 mg in 50 mls @ 100 mls/ hr IVPB Q8H-IV DAVIDA; Protocol Last Admin: 10/13/17 10:17 Dose: 100 mls/hr Piperacillin Sod/Tazobactam (Sod 2.25 gm/ Dextrose) 50 mls @ 100 mls/hr IVPB Q8H-IV DAVIDA; Protocol Last Admin: 10/13/17 10:18 Dose: 100 mls/hr Sodium Chloride (Normal Saline -) 1,000 mls @ 100 mls/hr IV ASDIR DAVIDA Last Admin: 10/12/17 23:45 Dose: 100 mls/hr Dopamine HCl/Dextrose (Dopamine 400 Mg/D5w -) 400,000 mcg in 250 mls @ 10.631 mls/hr IVPB TITR DAVIDA; Protocol Last Admin: 10/13/17 01:55 Dose: 5 mcg/kg/min, 10.631 mls/hr Sodium Chloride (Normal Saline -) 1,000 mls @ 1,000 mls/hr IV ASDIR STA Stop: 10/13/17 12:40 Metoprolol Succinate (Toprol Xl -) 25 mg PO DAILY [facility] Last Admin: 10/13/17 10:18 Dose: Not Given Mupirocin (Bactroban Ointment (For Decolonization) -) 1 applic NS BID [facility] Stop: 10/18/17 09:59 Last Admin: 10/13/17 10:19 Dose: 1 applic Oxycodone HCl (Roxicodone -) 5 mg PO Q6H PRN PRN Reason: PAIN SCALE 1-6 Last Admin: 10/12/17 09:48 Dose: 5 mg ASSESSMENT AND PLAN: r/o Septic Shock Anemia/Thrombocytopenia r/o TTP Acute Kidney Injury +Troponins - continue antibiotics - f/u cultures - surgical eval of leg ulcers - IVF resuscitation - titrate pressors to maintain MAP >65 - monitor urine output, creatinine - hematology f/u, peripheral smear - echocardiogram - trend cardiac enzymes - monitor CBC, coags, fibrinogen - LDH, haptoglobin, bilis - continue ICU monitoring - prognosis guarded critical care time spent in reviewing chart, evaluating patient and formulating plan 35 min
[2017-10-13] MEDS: oxyCODONE HCL 5 MG TABLET PO PRN (13:36)
[2017-10-13] MEDS ORDERED: ACETAMINOPHEN 325 MG TABLET (FP) ONE (13:43)
--- NOTE | 2017-10-13 13:47 | CONSULT ---
Consult Consult Specialty:: Nephrology Reason for Consultation:: JOHANA - History of Present Illness Chief Complaint: presented s/p fall History of Present Illness: Pt is an 82 year old male with pmhx of HTN and dementia who presents from the assisted living facility s/p fall. He was found to have renal failure that is worsening. He denies history of CKD but his is a very poor historian. He complains of leg pain. He denies loss of consciousness. He says he was taking motrin for aches and pains. He denies shortness of breath. 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 STEMMER: Yes: Dementia Cardio/Vascular: Yes: HTN - Alcohol/Substance Use Hx Alcohol Use: No - Smoking History Smoking history: Never smoked Have you smoked in the past 12 months: No Aproximately how many cigarettes per day: 0 Home Medications - Allergies Allergies/Adverse Reactions: Allergies Allergy/AdvReac Type Severity Reaction Status Date / Time No Known Allergies Allergy Verified 10/11/17 07:50 - Home Medications Home Medications: Ambulatory Orders Aspirin 81 mg PO DAILY 06/14/17 Calcium Carbonate [Oyster Shell Calcium] 500 mg PO DAILY 06/14/17 Cholecalciferol (Vitamin D3) [Vitamin D3 -] 1,000 unit PO DAILY 06/14/17 Docusate Sodium [Colace] 200 mg PO DAILY PRN 06/14/17 Ferrous Sulfate [Iron] 325 mg PO DAILY 06/14/17 Finasteride [Proscar] 5 mg PO DAILY 06/14/17 Lisinopril [Prinivil -] 40 mg PO DAILY 06/14/17 Loratadine [Claritin -] 10 mg PO DAILY 06/14/17 Nystatin/Triamcinolone Top Cr [Mycolog II -] 1 gm TP BID #1 tube 06/14/17 Oxymetazoline 0.05% Nasal Soln [Afrin -] 2 spray NS BID 06/14/17 Tamsulosin HCl [Flomax] 0.4 mg PO DAILY 06/14/17 Bacitracin - [Bacitracin Topical Ointment -] 1 applic TP TID #1 applic 06/15/17 Family Disease History - Family Disease History Family Disease History: CA: Mother (pancreatic CA) Other Family History: History of CAD and [place] Review of Systems Unable to obtain ROS, reason: poor historian/dementia - Review of Systems Constitutional: reports: No Symptoms Eyes: reports: No Symptoms HENT: reports: No Symptoms Neck: reports: No Symptoms Respiratory: reports: No Symptoms Gastrointestinal: reports: No Symptoms Musculoskeletal: reports: Extremity Pain Endocrine: reports: No Symptoms Physical Exam Vital Signs: Vital Signs Temperature 97.7 F 10/13/17 10:00 Pulse Rate 92 H 10/13/17 13:00 Respiratory Rate 22 10/13/17 13:00 Blood Pressure 110/64 10/13/17 13:00 O2 Sat by Pulse Oximetry (%) 95 10/12/17 21:00 Constitutional: Yes: Calm Eyes: Yes: Conjunctiva Clear HENT: Yes: Atraumatic Cardiovascular: Yes: S1, S2 Respiratory: Yes: CTA Bilaterally Gastrointestinal: Yes: Soft Renal/: Yes: Incontinence Musculoskeletal: Yes: Muscle Weakness Edema: Yes Neurological: Yes: Confusion Labs: CBC, BMP 10/13/17 05:30 10/13/17 05:30 Laboratory Tests 10/11/17 10/11/17 10/12/17 15:35 15:35 05:50 WBC 22.7 H 37.2 H* D Hgb Plt Count Anion Gap Creatinine 2.3 H Urine Protein Urine Blood 10/12/17 10/12/17 10/13/17 05:50 15:15 05:30 WBC Hgb Plt Count Anion Gap 10 Creatinine 2.6 H 2.8 H Urine Protein 2+ H Urine Blood 3+ H 10/13/17 05:30 WBC 51.9 H* D Hgb 9.2 L D Plt Count 31 L* Anion Gap Creatinine Urine Protein Urine Blood Imaging - Results Chest X-ray: Report Reviewed Problem List - Problems (1) CKD (chronic kidney disease) Code(s): N18.9 - CHRONIC KIDNEY DISEASE, UNSPECIFIED (2) Dementia Code(s): F03.90 - UNSPECIFIED DEMENTIA WITHOUT BEHAVIORAL DISTURBANCE (3) Fall Code(s): W19.XXXA - UNSPECIFIED FALL, INITIAL ENCOUNTER Qualifiers: Encounter type: initial encounter Qualified Code(s): W19.XXXA - Unspecified fall, initial encounter (4) HTN (hypertension) Code(s): I10 - ESSENTIAL (PRIMARY) HYPERTENSION (5) Thrombocytopenia Code(s): D69.6 - THROMBOCYTOPENIA, UNSPECIFIED Assessment/Plan Current Medications Generic Name Dose Route Start Last Admin Trade Name Freq PRN Reason Stop Dose Admin Chlorhexidine Gluconate 1 applic 10/13/17 22:00 Hibiclens For Decolonization - TP HS DAVIDA Clindamycin Phosphate 300 mg in 50 mls @ 100 mls/hr 10/12/17 13:00 10/13/17 10:17 Cleocin 300 Mg Premix Ivpb IVPB 100 mls/hr Q8H-IV DAVIDA Administration Protocol Piperacillin Sod/Tazobactam 50 mls @ 100 mls/hr 10/12/17 13:00 10/13/17 10:18 Sod 2.25 gm/ Dextrose IVPB 100 mls/hr Q8H-IV DAVIDA Administration Protocol Sodium Chloride 1,000 mls @ 100 mls/hr 10/12/17 23:00 10/12/17 23:45 Normal Saline - IV 100 mls/hr ASDIR DAVIDA Administration Dopamine HCl/Dextrose 400,000 mcg in 250 mls @ 10.631 mls/hr 10/13/17 01:45 10/13/17 01:55 Dopamine 400 Mg/D5w - IVPB 5 mcg/kg/min TITR DAVIDA 10.631 mls/hr Administration Protocol 5 MCG/KG/MIN Metoprolol Succinate 25 mg 10/12/17 10:00 10/13/17 10:18 Toprol Xl - PO Not Given DAILY DAVIDA Mupirocin 1 applic 10/13/17 10:00 10/13/17 10:19 Bactroban Ointment (For Decolonization) - NS 10/18/17 09:59 1 applic BID DVAIDA Administration Oxycodone/Acetaminophen 1 combo 10/13/17 13:42 Percocet 5/325 - PO Q6H PRN PAIN LEVEL 6-10 Laboratory Tests 10/13/17 05:00 Ur Random Sodium 19 Impression 1. JOHANA 2. s/p fall 3. thrombocytopenia 4. HTN 5. leukocytosis 6. anemia Plan - cont with fluids - follow cultures - heme follow up as wbc is rising - check peripheral smear - wound care to leg - will send out renal workup - monitor renal function - place conner cath - monitor platelets
[2017-10-13] MEDS: SODIUM CHLORIDE 1,000 ML IV SCH (14:02)
[2017-10-13] MEDS ORDERED: ACETAMINOPHEN 325 MG TABLET (FP) PO PRN (14:07)
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
--- NOTE | 2017-10-13 16:31 | PN ---
Progress Note (short form) - Note Progress Note: Events noted Pt in ICU now. Constitutional: Yes: Calm, Thin Eyes: Yes: Conjunctiva Clear HENT: Yes: Atraumatic, Normocephalic Neck: Yes: Supple Cardiovascular: Yes: Regular Rate and Rhythm Respiratory: Yes: Regular, CTA Bilaterally Gastrointestinal: Yes: Normal Bowel Sounds, Soft Labs: INR, PTT INR 1.26 (0.82-1.09) H 10/13/17 07:20 Fibrinogen > 500.0 mg/dL (238-498) H D 10/13/17 07:20 CBC, BMP 10/13/17 05:30 10/13/17 05:30 Current Medications Generic Name Dose Route Start Last Admin Trade Name Freq PRN Reason Stop Dose Admin Acetaminophen 325 mg 10/13/17 14:07 Tylenol - PO Q6H PRN PAIN LEVEL 6-10 Chlorhexidine Gluconate 1 applic 10/13/17 22:00 Hibiclens For Decolonization - TP HS DAVIDA Clindamycin Phosphate 300 mg in 50 mls @ 100 mls/hr 10/12/17 13:00 10/13/17 10:17 Cleocin 300 Mg Premix Ivpb IVPB 100 mls/hr Q8H-IV DAVIDA Administration Protocol Piperacillin Sod/Tazobactam 50 mls @ 100 mls/hr 10/12/17 13:00 10/13/17 10:18 Sod 2.25 gm/ Dextrose IVPB 100 mls/hr Q8H-IV DAVIDA Administration Protocol Sodium Chloride 1,000 mls @ 100 mls/hr 10/12/17 23:00 10/13/17 14:02 Normal Saline - IV 100 mls/hr ASDIR DAVIDA Administration Dopamine HCl/Dextrose 400,000 mcg in 250 mls @ 10.631 mls/hr 10/13/17 01:45 10/13/17 01:55 Dopamine 400 Mg/D5w - IVPB 5 mcg/kg/min TITR DAVIDA 10.631 mls/hr Administration Protocol 5 MCG/KG/MIN Metoprolol Succinate 25 mg 10/12/17 10:00 10/13/17 10:18 Toprol Xl - PO Not Given DAILY DAVIDA Mupirocin 1 applic 10/13/17 10:00 10/13/17 10:19 Bactroban Ointment (For Decolonization) - NS 10/18/17 09:59 1 applic BID DAVIDA Administration Oxycodone HCl 5 mg 10/13/17 14:07 Roxicodone - PO Q6H PRN PAIN LEVEL 6-10 Abnormal CBC await w/u US with mild splenomegaly underlying heme disorder cannot be ruled out. LDH normal, unlikely HUS regular transfusion thresholds ?Extent ot w/u in an elderly frail patient with dementia to be determined. c/w supportive care
--- NOTE | 2017-10-13 17:43 | PN ---
Progress Note (short form) - Note Progress Note: Vascular surgery Pt seen and examined. Dressing changed on RLE. Some drainage present. No erythema or cellulitis currently. Pitting edema. Palpable pulses. Cont IV antibiotics. No open wounds. Xerofrom, IVON for compression daily Richard Bowling DO
--- NOTE | 2017-10-13 18:54 | PN ---
Progress Note, Physician History of Present Illness: feeling better - Current Medication List Current Medications: Active Medications Acetaminophen (Tylenol -) 325 mg PO Q6H PRN PRN Reason: PAIN LEVEL 6-10 Chlorhexidine Gluconate (Hibiclens For Decolonization -) 1 applic TP HS DAVIDA Clindamycin Phosphate (Cleocin 300 Mg Premix Ivpb) 300 mg in 50 mls @ 100 mls/ hr IVPB Q8H-IV DAVIDA; Protocol Last Admin: 10/13/17 10:17 Dose: 100 mls/hr Piperacillin Sod/Tazobactam (Sod 2.25 gm/ Dextrose) 50 mls @ 100 mls/hr IVPB Q8H-IV DAVIDA; Protocol Last Admin: 10/13/17 18:01 Dose: 100 mls/hr Sodium Chloride (Normal Saline -) 1,000 mls @ 100 mls/hr IV ASDIR DAVIDA Last Admin: 10/13/17 14:02 Dose: 100 mls/hr Dopamine HCl/Dextrose (Dopamine 400 Mg/D5w -) 400,000 mcg in 250 mls @ 10.631 mls/hr IVPB TITR DAVIDA; Protocol Last Admin: 10/13/17 18:01 Dose: 6 mcg/kg/min, 12.757 mls/hr Metoprolol Succinate (Toprol Xl -) 25 mg PO DAILY [facility] Last Admin: 10/13/17 10:18 Dose: Not Given Mupirocin (Bactroban Ointment (For Decolonization) -) 1 applic NS BID [facility] Stop: 10/18/17 09:59 Last Admin: 10/13/17 10:19 Dose: 1 applic Oxycodone HCl (Roxicodone -) 5 mg PO Q6H PRN PRN Reason: PAIN LEVEL 6-10 - Objective Vital Signs: Vital Signs Temperature 97.7 F 10/13/17 10:00 Pulse Rate 92 H 10/13/17 13:00 Respiratory Rate 22 10/13/17 13:00 Blood Pressure 110/64 10/13/17 13:00 O2 Sat by Pulse Oximetry (%) 95 10/12/17 21:00 Constitutional: Yes: No Distress HENT: Yes: Atraumatic Neck: Yes: Supple Cardiovascular: Yes: Regular Rate and Rhythm Respiratory: Yes: CTA Bilaterally Gastrointestinal: Yes: Normal Bowel Sounds Extremities: Yes: WNL Edema: No Neurological: Yes: Alert, Oriented Labs: CBC, BMP 10/13/17 05:30 10/13/17 05:30 INR, PTT INR 1.26 (0.82-1.09) H 10/13/17 07:20 Fibrinogen > 500.0 mg/dL (238-498) H D 10/13/17 07:20 Problem List - Problems (1) CKD (chronic kidney disease) Assessment/Plan: will monitor on ivf nephro on board Code(s): N18.9 - CHRONIC KIDNEY DISEASE, UNSPECIFIED (2) Dementia Assessment/Plan: stable Code(s): F03.90 - UNSPECIFIED DEMENTIA WITHOUT BEHAVIORAL DISTURBANCE (3) HTN (hypertension) Assessment/Plan: on hold due to low bp Code(s): I10 - ESSENTIAL (PRIMARY) HYPERTENSION (4) Thrombocytopenia Assessment/Plan: monitor need platelet transfusion hematology on board Code(s): D69.6 - THROMBOCYTOPENIA, UNSPECIFIED (5) Superficial laceration of face Code(s): S01.81XA - LACERATION W/O FOREIGN BODY OF OTH PART OF HEAD, INIT ENCNTR (6) Leukocytosis Assessment/Plan: elevated today dehydration? Code(s): D72.829 - ELEVATED WHITE BLOOD CELL COUNT, UNSPECIFIED Assessment/Plan cc time 35
--- NOTE | 2017-10-13 19:03 | CON.ID ---
Consult Consult Specialty:: infectious diseases Reason for Consultation:: sepsis,uti fall - History of Present Illness History of Present Illness: this patient who has dementia who cannot give history appropriately which is taken from the charts 82 year old male, from [email or web address] with a significant past medical history of hypertension and dementia, who presents to the emergency department s/p unwitnessed mechanical fall earlier this morning. The patient reports he was ambulating to the bathroom with his walker, when suddenly he lost his balance and fell, landing on his left leg. He reports associated left leg pain, but denies any head trauma, LOC changes in vision, headache, dizziness, lightheadedness, neck/back/ or hip pain. He denies any other injuries. patient now on the floor awake and alert says he has no issues with hypotension and slightly increased confusion but awake and alert - History Source History Provided By: Medical Record Limitations to Obtaining History: Clinical Condition - Past Medical History [employer]: Yes: Dementia Cardio/Vascular: Yes: HTN - Alcohol/Substance Use Hx Alcohol Use: No - Smoking History Smoking history: Never smoked Have you smoked in the past 12 months: No Aproximately how many cigarettes per day: 0 Home Medications - Allergies Allergies/Adverse Reactions: Allergies Allergy/AdvReac Type Severity Reaction Status Date / Time No Known Allergies Allergy Verified 10/11/17 07:50 - Home Medications Home Medications: Ambulatory Orders Aspirin 81 mg PO DAILY 06/14/17 Calcium Carbonate [Oyster Shell Calcium] 500 mg PO DAILY 06/14/17 Cholecalciferol (Vitamin D3) [Vitamin D3 -] 1,000 unit PO DAILY 06/14/17 Docusate Sodium [Colace] 200 mg PO DAILY PRN 06/14/17 Ferrous Sulfate [Iron] 325 mg PO DAILY 06/14/17 Finasteride [Proscar] 5 mg PO DAILY 06/14/17 Lisinopril [Prinivil -] 40 mg PO DAILY 06/14/17 Loratadine [Claritin -] 10 mg PO DAILY 06/14/17 Nystatin/Triamcinolone Top Cr [Mycolog II -] 1 gm TP BID #1 tube 06/14/17 Oxymetazoline 0.05% Nasal Soln [Afrin -] 2 spray NS BID 06/14/17 Tamsulosin HCl [Flomax] 0.4 mg PO DAILY 06/14/17 Bacitracin - [Bacitracin Topical Ointment -] 1 applic TP TID #1 applic 06/15/17 Family Disease History - Family Disease History Family Disease History: CA: Mother (pancreatic CA) Other Family History: History of CAD and DC Review of Systems Unable to obtain ROS, reason: unable to obtain Physical Exam Vital Signs: Vital Signs Temperature 97.7 F 10/13/17 10:00 Pulse Rate 92 H 10/13/17 13:00 Respiratory Rate 22 10/13/17 13:00 Blood Pressure 110/64 10/13/17 13:00 O2 Sat by Pulse Oximetry (%) 95 10/12/17 21:00 Constitutional: Yes: No Distress, Calm Eyes: Yes: Conjunctiva Clear Cardiovascular: Yes: Regular Rate and Rhythm Respiratory: Yes: Regular, Poor Air Entry Gastrointestinal: Yes: Normal Bowel Sounds, Soft Renal/: Yes: Lopez Present Musculoskeletal: Yes: Other Edema: LLE: Trace, RLE: Trace Neurological: Yes: Alert, Confusion Psychiatric: Yes: Other Labs: CBC, BMP 10/13/17 05:30 10/13/17 05:30 Imaging - Results Chest X-ray: Report Reviewed, Image Reviewed X-ray: Report Reviewed, Image Reviewed Cat Scan: Report Reviewed, Image Reviewed Assessment/Plan Problem List - Problems (1) CKD (chronic kidney disease) Code(s): N18.9 - CHRONIC KIDNEY DISEASE, UNSPECIFIED (2) Dementia Code(s): F03.90 - UNSPECIFIED DEMENTIA WITHOUT BEHAVIORAL DISTURBANCE (3) Fall Code(s): W19.XXXA - UNSPECIFIED FALL, INITIAL ENCOUNTER Qualifiers: Encounter type: initial encounter Qualified Code(s): W19.XXXA - Unspecified fall, initial encounter (4) HTN (hypertension) Code(s): I10 - ESSENTIAL (PRIMARY) HYPERTENSION (5) Thrombocytopenia Code(s): D69.6 - THROMBOCYTOPENIA, UNSPECIFIED 6 sepsis confusion plan started patient on abx await for all cx reports if patients bp does not come up needs to be in icu patient will probably go in septic shock monitor very closely iv fluids
[2017-10-13 22:57] LABS: URINE CREATININE 51.7 mg/dL (20-370)
[2017-10-13] MEDS: CHLORHEXIDINE GLUCONATE 4% CLEANSER FOR DECOLONIZATION TP SCH (23:00)
[2017-10-13 23:07] LABS: RATIO URIN PROTEIN/URIN CREAT 3.2 MG/DL
[2017-10-14] MEDS: CLINDAMYCIN 300 MG PREMIX IVPB 300 MG/50 ML BAG IVPB SCH ×3 (01:21→17:33)
[2017-10-14] MEDS: PIPERACILLIN/TAZOB 2.25 GM 2.25 GM in DEXTROSE 5%-WATER - 50 ML IVPB SCH ×3 (02:01→17:33)
[2017-10-14] MEDS: SODIUM CHLORIDE 1,000 ML IV SCH (02:01)
[2017-10-14 06:19] LABS: BASO % 0.7 % (0-2.0); EOS % 0.1 % (0-4.5); HEMATOCRIT 31.1 % (35.4-49); HEMOGLOBIN 9.9 GM/dL (11.7-16.9); LYMPH % 69.2 % (8-40); MCH 32.1 pg (25.7-33.7); MEAN CELL VOLUME 100.3 fl (80-96); MEAN PLT VOLUME 10.6 fl (7.5-11.1); MONO % 2.7 % (3.8-10.2); NEUT % 27.3 % (42.8-82.8); RDW 15.7 % (11.9-15.9)
[2017-10-14 06:32] LABS: PLATELET COUNT 34 K/MM3 (134-434); WHITE BLOOD COUNT 48.2 K/mm3 (4.0-10.0)
[2017-10-14 06:50] LABS: CHLORIDE 112 mmol/L (98-107); POTASSIUM 3.8 mmol/L (3.5-5.1); SODIUM 142 mmol/L (136-145)
[2017-10-14 07:03] LABS: ALBUMIN 1.6 g/dl (3.4-5.0); ALK PHOS 125 U/L (45-117); ANION GAP 13 (8-16); BILIRUBIN,TOTAL 1.5 mg/dL (0.2-1.0); BLOOD UREA NITROGEN 66 mg/dL (7-18); CALCIUM 7.4 mg/dL (8.5-10.1); CO2 17 mmol/L (21-32); CREATININE 2.3 mg/dL (0.7-1.3); GLUCOSE,RANDOM 90 mg/dL (74-106); MAGNESIUM 2.4 mg/dL (1.8-2.4); SGOT/AST 46 U/L (15-37); SGPT/ALT 31 U/L (12-78); TOT PROT 5.9 g/dl (6.4-8.2)
[2017-10-14 07:09] LABS: ACTIVATED PTT 22.8 SECONDS (26.9-34.4); INR 0.91 (0.82-1.09); PROTHROMBIN TIME (PATIENT) 10.3 SEC (9.7-13.0)
[2017-10-14] MEDS: DOPAMINE 400 MG/D5W - 400,000 MCG/250 ML INFUS.BAG IVPB SCH (07:22)
--- NOTE | 2017-10-14 08:00 | PN ---
Physical Exam: SUBJECTIVE: Patient seen and examined c/o pain from neck down olman in b/l lower legs when touched and when trying to move. denies headache, sob, cardiac chest pain, palpitations, abdominal pain. OBJECTIVE: Vital Signs Period Temp Pulse Resp BP Sys/Hammond Pulse Ox Last 24 Hr 97.7 F-98.5 F 86-105 15-24 90-110/50-75 99 GENERAL: Awake, alert, and oriented to person and place, in no acute distress. EYES: eomi, perrla, anicteric sclera EARS, NOSE, THROAT: moist mucous membranes. poor oral hygiene, dentures in place , no thrush, no oral lesions LUNGS: Breath sounds equal, clear to auscultation bilaterally. HEART: Regular rate and rhythm, normal S1 and S2 with murmur ABDOMEN: Soft, nontender, not distended, normoactive bowel sounds, no guarding, no rebound, no masses. MUSCULOSKELETAL: decreased range of motion at all joints. No CVA tenderness. UPPER EXTREMITIES: 2+ radial pulses, warm, well-perfused. No cyanosis. No clubbing. LOWER EXTREMITIES: 2+ dp pulses, warm, well-perfused. Left lower: Very tender to palpation+erythema with 1+pitting edema in left leg with vesicular skin edema with serous drainage throughout leg from knee to above ankle. petechial rash in medial left knee. Right lower: medial right knee with purpura, decr range of motion at knee, no swelling. TTP. no edema. NEUROLOGICAL: Cranial nerves II-XII intact. Normal speech. clear speech Laboratory Results - last 24 hr 10/13/17 10/13/17 10/13/17 05:00 05:00 05:30 WBC RBC Hgb Hct MCV MCH MCHC RDW Plt Count MPV Absolute Neuts (auto) Neutrophils % 24.2 L Lymphocytes % 73.0 H Monocytes % 2.3 L Eosinophils % 0.0 D Basophils % 0.5 D Nucleated RBC % PT with INR INR PTT (Actin FS) Fibrinogen Sodium Potassium Chloride Carbon Dioxide Anion Gap BUN Creatinine Creat Clearance w eGFR POC Glucometer Random Glucose Lactic Acid Calcium Phosphorus Magnesium Total Bilirubin AST ALT Alkaline Phosphatase LD Total Total Protein Albumin U Random Total Protein Ur Random Sodium 19 Urine Creatinine 103.0 Protein/Creatinin Ratio 06/06/18 06/06/18 06/06/18 05:30 07:20 07:20 WBC RBC Hgb Hct MCV MCH MCHC RDW Plt Count MPV Absolute Neuts (auto) Neutrophils % Lymphocytes % Monocytes % Eosinophils % Basophils % Nucleated RBC % PT with INR 14.20 H INR 1.26 H PTT (Actin FS) 46.4 H Fibrinogen > 500.0 H D Sodium Potassium Chloride Carbon Dioxide Anion Gap BUN Creatinine Creat Clearance w eGFR POC Glucometer [phone] Random Glucose Lactic Acid 2.5 H* Calcium Phosphorus Magnesium Total Bilirubin AST ALT Alkaline Phosphatase LD Total Total Protein Albumin U Random Total Protein Ur Random Sodium Urine Creatinine Protein/Creatinin Ratio 10/13/17 10/13/17 10/14/17 07:20 22:20 05:30 WBC RBC Hgb Hct MCV MCH MCHC RDW Plt Count MPV Absolute Neuts (auto) Neutrophils % Lymphocytes % Monocytes % Eosinophils % Basophils % Nucleated RBC % PT with INR INR PTT (Actin FS) Fibrinogen Sodium 142 Potassium 3.8 Chloride 112 H Carbon Dioxide 17 L Anion Gap 13 BUN 66 H Creatinine 2.3 H Creat Clearance w eGFR 27.29 POC Glucometer Random Glucose 90 Lactic Acid Calcium 7.4 L Phosphorus 3.0 Magnesium 2.4 Total Bilirubin 1.5 H AST 46 H ALT 31 D Alkaline Phosphatase 125 H D LD Total 158 Total Protein 5.9 L Albumin 1.6 L U Random Total Protein 167 H Ur Random Sodium Urine Creatinine 51.7 Protein/Creatinin Ratio 3.2 10/14/17 10/14/17 06:00 06:00 WBC 48.2 H* RBC 3.10 L Hgb 9.9 L Hct 31.1 L MCV 100.3 H MCH 32.1 MCHC 32.0 RDW 15.7 Plt Count 34 L* MPV 10.6 Absolute Neuts (auto) 13.2 Neutrophils % 27.3 L Lymphocytes % 69.2 H Monocytes % 2.7 L Eosinophils % 0.1 D Basophils % 0.7 Nucleated RBC % 0 PT with INR 10.30 INR 0.91 PTT (Actin FS) 22.8 L D Fibrinogen Sodium Potassium Chloride Carbon Dioxide Anion Gap BUN Creatinine Creat Clearance w eGFR POC Glucometer Random Glucose Lactic Acid Calcium Phosphorus Magnesium Total Bilirubin AST ALT Alkaline Phosphatase LD Total Total Protein Albumin U Random Total Protein Ur Random Sodium Urine Creatinine Protein/Creatinin Ratio Active Medications Generic Name Dose Route Start Last Admin Trade Name Freq PRN Reason Stop Dose Admin Acetaminophen 325 mg 10/13/17 14:07 Tylenol - PO Q6H PRN PAIN LEVEL 6-10 Chlorhexidine Gluconate 1 applic 10/13/17 22:00 10/13/17 23:00 Hibiclens For Decolonization - TP 1 applic HS DAVIDA Administration Clindamycin Phosphate 300 mg in 50 mls @ 100 mls/hr 10/12/17 13:00 10/14/17 01:21 Cleocin 300 Mg Premix Ivpb IVPB 100 mls/hr Q8H-IV DAVIDA Administration Protocol Piperacillin Sod/Tazobactam 50 mls @ 100 mls/hr 10/12/17 13:00 10/14/17 02:01 Sod 2.25 gm/ Dextrose IVPB 100 mls/hr Q8H-IV DAVIDA Administration Protocol Sodium Chloride 1,000 mls @ 100 mls/hr 10/12/17 23:00 10/14/17 02:01 Normal Saline - IV 100 mls/hr ASDIR DAVIDA Administration Dopamine HCl/Dextrose 400,000 mcg in 250 mls @ 10.631 mls/hr 10/13/17 01:45 10/14/17 07:22 Dopamine 400 Mg/D5w - IVPB Not Given TITR DAVIDA Protocol 5 MCG/KG/MIN Famotidine/Sodium Chloride 20 mg in 50 mls @ 100 mls/hr 10/14/17 10:00 Pepcid 20 Mg Premixed Ivpb - IVPB BID DAVIDA Metoprolol Succinate 25 mg 10/12/17 10:00 10/13/17 10:18 Toprol Xl - PO Not Given DAILY DAVIDA Mupirocin 1 applic 10/13/17 10:00 10/14/17 00:00 Bactroban Ointment (For Decolonization) - NS 10/18/17 09:59 1 applic BID DAVIDA Administration Oxycodone HCl 5 mg 10/13/17 14:07 Roxicodone - PO Q6H PRN PAIN LEVEL 6-10 ASSESSMENT/PLAN: 82 yr old man with dementia and HTN admitted to ICU for Septic shock from left lower leg cellulitis. Cardiovascular: Hypotensive - improved, off dopamine continue IVF, NS @100c hold home anti-HTN's Pulmonary: maintaining airway GI/NUT: tolerating regular diet ranitidine 150mg Renal/Electrolytes: JOHANA, likely from pre-renal source from volume depletion and hypoperfusion currently electrolytes wnl, replete as needed conner in place Infectious Disease: abx clinda + ilene, Dr. forbes for ID consult --abx started 10/11 blood and urine cx NGTD Hem/Coag: Anemia - anemia w.o check iron studies, Hgb >8, transfusion not indicated thrombocytopenia/leucocytosis - Hematology consult to r.o myeloproliferative d.o - check liver with u/s -- LDH low unlikely to be hemolysis Musculoskeletal/Skin: wound care consult to evalute left lower leg: xerofrom with dry gauze no fractures identified in xrays - pain control with percocet 5mg DVT prophylaxis - given thrombocytopenia and johana would defer medical AC, and unable to place SCD's due to left leg cellilitis and b.l lower leg pain. monitor closely for s/s of DVT/PE GOC:- Discussed with son(Felix Márquez, healthcare proxy) pt has a MOLST form indicating FULL CODE. Discussed with Chery(telehealth case manager at [facility]), according to her pt fell in bathroom and called 911 himself. he had been in his bed during room check at midnight. PCP: Dr. Spencer, Dr. Ball for GI last seen 2016. been living at [facility] since 2013. CMP from 04/2017: Na 140 K 4.4 BUN/Cr 31:1.87 AST 44, Alk phos 121 HbA1c 5.6 Copy of lab work in chart Stable for monitoring on med-surg floor Visit type - Emergency Visit Emergency Visit: No - New Patient This patient is new to me today: No - Critical Care Critical Care patient: Yes Total Critical Care Time (in minutes): 38 Critical Care Statement: The care of this patient involved high complexity decision making to prevent further life threatening deterioration of the patient 's condition and/or to evaluate & treat vital organ system(s) failure or risk of failure.
[2017-10-14] MEDS ORDERED: PIPERACILLIN/TAZOBACTAM 2.25 GM VIAL IVPB ONE ×3 (08:03→22:42)
[2017-10-14] MEDS ORDERED: DEXTROSE 5%-WATER - 50 ML IVPB ONE ×3 (08:04→22:43)
[2017-10-14] MEDS: MUPIROCIN 2% TOPICAL OINTMENT FOR DECOLONIZATION NS SCH ×3 (09:22→21:16)
[2017-10-14] MEDS: metoPROLOL SUCCINATE 25 MG TAB.SR.24H (FP) PO SCH (09:22)
[2017-10-14] MEDS: FAMOTIDINE 20 MG/50 ML IVPB 20 MG/50 ML MG IVPB SCH ×2 (11:31→21:15)
--- NOTE | 2017-10-14 11:37 | PN ---
Teaching Attending Note Name of Resident: Azul Leone ATTENDING PHYSICIAN STATEMENT I saw and evaluated the patient. I reviewed the resident's note and discussed the case with the resident. I agree with the resident's findings and plan as documented. SUBJECTIVE: Patient seen and examined in the ICU. Remains on 2 mcq dopamine drip for hemodynamic support. Reports left leg pain., but better than yesterday. OBJECTIVE: Intake & Output 10/11/17 10/12/17 10/13/17 10/14/17 23:59 23:59 23:59 23:59 Intake Total 50 3600 5770.2 1495.2 Output Total 50 1000 500 Balance 50 3550 4770.2 995.2 Weight 125 lb 125 lb 137 lb 2.04 oz Last Vital Signs Temp Pulse Resp BP Pulse Ox 98.2 F 90 17 120/70 99 10/14/17 06:00 10/14/17 09:17 10/14/17 07:45 10/14/17 09:17 10/13/17 23:38 Active Medications Acetaminophen (Tylenol -) 325 mg PO Q6H PRN PRN Reason: PAIN LEVEL 6-10 Chlorhexidine Gluconate (Hibiclens For Decolonization -) 1 applic TP HS DAVIDA Last Admin: 10/13/17 23:00 Dose: 1 applic Clindamycin Phosphate (Cleocin 300 Mg Premix Ivpb) 300 mg in 50 mls @ 100 mls/ hr IVPB Q8H-IV DAVIDA; Protocol Last Admin: 10/14/17 09:21 Dose: 100 mls/hr Piperacillin Sod/Tazobactam (Sod 2.25 gm/ Dextrose) 50 mls @ 100 mls/hr IVPB Q8H-IV DAVIDA; Protocol Last Admin: 10/14/17 09:20 Dose: 100 mls/hr Sodium Chloride (Normal Saline -) 1,000 mls @ 100 mls/hr IV ASDIR DAVIDA Last Admin: 10/14/17 02:01 Dose: 100 mls/hr Dopamine HCl/Dextrose (Dopamine 400 Mg/D5w -) 400,000 mcg in 250 mls @ 10.631 mls/hr IVPB TITR DAVIDA; Protocol Last Titration: 10/14/17 09:17 Dose: 4 mcg/kg/min, 8.505 mls/hr Famotidine/Sodium Chloride (Pepcid 20 Mg Premixed Ivpb -) 20 mg in 50 mls @ 100 mls/hr IVPB BID [facility] Metoprolol Succinate (Toprol Xl -) 25 mg PO DAILY [facility] Last Admin: 10/14/17 09:22 Dose: Not Given Mupirocin (Bactroban Ointment (For Decolonization) -) 1 applic NS BID [facility] Stop: 10/18/17 09:59 Last Admin: 10/14/17 09:22 Dose: 1 applic Oxycodone HCl (Roxicodone -) 5 mg PO Q6H PRN PRN Reason: PAIN LEVEL 6-10 Gen: NAD at rest Heart: RRR Lung: decreased breath sounds at the bases Abd: soft, nontender Ext: LLE weeping ulcers, painful to slightest touch, petechial rash Laboratory Results - last 24 hr 10/13/17 10/13/17 10/13/17 05:00 05:00 05:30 WBC RBC Hgb Hct MCV MCH MCHC RDW Plt Count MPV Absolute Neuts (auto) Neutrophils % Lymphocytes % Monocytes % Eosinophils % Basophils % Nucleated RBC % PT with INR INR PTT (Actin FS) Fibrinogen Sodium Potassium Chloride Carbon Dioxide Anion Gap BUN Creatinine Creat Clearance w eGFR POC Glucometer 143.89299 Random Glucose Calcium Phosphorus Magnesium Total Bilirubin AST ALT Alkaline Phosphatase Total Protein Albumin U Random Total Protein Ur Random Sodium 19 Urine Creatinine 103.0 Protein/Creatinin Ratio Direct Antiglob Test 10/13/17 10/14/17 10/14/17 22:20 05:30 05:30 WBC RBC Hgb Hct MCV MCH MCHC RDW Plt Count MPV Absolute Neuts (auto) Neutrophils % Lymphocytes % Monocytes % Eosinophils % Basophils % Nucleated RBC % PT with INR INR PTT (Actin FS) Fibrinogen Sodium 142 Potassium 3.8 Chloride 112 H Carbon Dioxide 17 L Anion Gap 13 BUN 66 H Creatinine 2.3 H Creat Clearance w eGFR 27.29 POC Glucometer Random Glucose 90 Calcium 7.4 L Phosphorus 3.0 Magnesium 2.4 Total Bilirubin 1.5 H AST 46 H ALT 31 D Alkaline Phosphatase 125 H D Total Protein 5.9 L Albumin 1.6 L U Random Total Protein 167 H Ur Random Sodium Urine Creatinine 51.7 Protein/Creatinin Ratio 3.2 Direct Antiglob Test Negative 10/14/17 10/14/17 10/14/17 05:40 05:59 06:00 WBC 48.2 H* RBC 3.10 L Hgb 9.9 L Hct 31.1 L MCV 100.3 H MCH 32.1 MCHC 32.0 RDW 15.7 Plt Count 34 L* MPV 10.6 Absolute Neuts (auto) 13.2 Neutrophils % 27.3 L Lymphocytes % 69.2 H Monocytes % 2.7 L Eosinophils % 0.1 D Basophils % 0.7 Nucleated RBC % 0 PT with INR INR PTT (Actin FS) Fibrinogen Sodium Potassium Chloride Carbon Dioxide Anion Gap BUN Creatinine Creat Clearance w eGFR POC Glucometer 191.47471 124.31259 Random Glucose Calcium Phosphorus Magnesium Total Bilirubin AST ALT Alkaline Phosphatase Total Protein Albumin U Random Total Protein Ur Random Sodium Urine Creatinine Protein/Creatinin Ratio Direct Antiglob Test 10/14/17 06:00 WBC RBC Hgb Hct MCV MCH MCHC RDW Plt Count MPV Absolute Neuts (auto) Neutrophils % Lymphocytes % Monocytes % Eosinophils % Basophils % Nucleated RBC % PT with INR 10.30 INR 0.91 PTT (Actin FS) 22.8 L D Fibrinogen 429.0 Sodium Potassium Chloride Carbon Dioxide Anion Gap BUN Creatinine Creat Clearance w eGFR POC Glucometer Random Glucose Calcium Phosphorus Magnesium Total Bilirubin AST ALT Alkaline Phosphatase Total Protein Albumin U Random Total Protein Ur Random Sodium Urine Creatinine Protein/Creatinin Ratio Direct Antiglob Test ASSESSMENT AND PLAN: Septic Shock Anemia/Thrombocytopenia R/O TTP Acute Kidney Injury +Troponins - ABX Per ID - f/u cultures - Local wound care per surgery - IVF bolus - Wean pressors to maintain MAP >65 - monitor urine output, creatinine - Hematology work up ongoing - Normal transfusion thresholds - continue ICU monitoring Dr Lr Critical care time spent in reviewing chart, evaluating patient and formulating plan 35 min
--- NOTE | 2017-10-14 15:58 | PN ---
Progress Note, Physician History of Present Illness: Pt seen and examined at bedside. He is awake and appears comfortable. - Current Medication List Current Medications: Active Medications Acetaminophen (Tylenol -) 325 mg PO Q6H PRN PRN Reason: PAIN LEVEL 6-10 Chlorhexidine Gluconate (Hibiclens For Decolonization -) 1 applic TP HS [facility] Last Admin: 10/13/17 23:00 Dose: 1 applic Clindamycin Phosphate (Cleocin 300 Mg Premix Ivpb) 300 mg in 50 mls @ 100 mls/ hr IVPB Q8H-IV DVAIDA; Protocol Last Admin: 10/14/17 09:21 Dose: 100 mls/hr Piperacillin Sod/Tazobactam (Sod 2.25 gm/ Dextrose) 50 mls @ 100 mls/hr IVPB Q8H-IV DAVIDA; Protocol Last Admin: 10/14/17 09:20 Dose: 100 mls/hr Sodium Chloride (Normal Saline -) 1,000 mls @ 100 mls/hr IV ASDIR DAVIDA Last Admin: 10/14/17 02:01 Dose: 100 mls/hr Dopamine HCl/Dextrose (Dopamine 400 Mg/D5w -) 400,000 mcg in 250 mls @ 10.631 mls/hr IVPB TITR DAVIDA; Protocol Last Titration: 10/14/17 09:17 Dose: 4 mcg/kg/min, 8.505 mls/hr Famotidine/Sodium Chloride (Pepcid 20 Mg Premixed Ivpb -) 20 mg in 50 mls @ 100 mls/hr IVPB BID [facility] Last Admin: 10/14/17 11:31 Dose: 100 mls/hr Metoprolol Succinate (Toprol Xl -) 25 mg PO DAILY [facility] Last Admin: 10/14/17 09:22 Dose: Not Given Mupirocin (Bactroban Ointment (For Decolonization) -) 1 applic NS BID [facility] Stop: 10/18/17 09:59 Last Admin: 10/14/17 09:22 Dose: 1 applic Oxycodone HCl (Roxicodone -) 5 mg PO Q6H PRN PRN Reason: PAIN LEVEL 6-10 - Objective Vital Signs: Vital Signs Temperature 98.2 F 10/14/17 06:00 Pulse Rate 90 10/14/17 09:17 Respiratory Rate 17 10/14/17 07:45 Blood Pressure 120/70 10/14/17 09:17 O2 Sat by Pulse Oximetry (%) 99 10/13/17 23:38 Constitutional: Yes: Calm Eyes: Yes: Conjunctiva Clear HENT: Yes: Atraumatic Neck: Yes: Supple Cardiovascular: Yes: S1, S2 Respiratory: Yes: On Nasal O2 Gastrointestinal: Yes: Soft Genitourinary: Yes: Lopez Present Musculoskeletal: Yes: Muscle Weakness Edema: Yes Edema: LLE: Trace, RLE: Trace Neurological: Yes: Confusion Labs: CBC, BMP 10/14/17 06:00 10/14/17 05:30 INR, PTT INR 0.91 (0.82-1.09) 10/14/17 06:00 Fibrinogen 429.0 mg/dL (238-498) 10/14/17 06:00 Problem List - Problems (1) CKD (chronic kidney disease) Code(s): N18.9 - CHRONIC KIDNEY DISEASE, UNSPECIFIED (2) Dementia Code(s): F03.90 - UNSPECIFIED DEMENTIA WITHOUT BEHAVIORAL DISTURBANCE (3) Fall Code(s): W19.XXXA - UNSPECIFIED FALL, INITIAL ENCOUNTER Qualifiers: Encounter type: initial encounter Qualified Code(s): W19.XXXA - Unspecified fall, initial encounter (4) HTN (hypertension) Code(s): I10 - ESSENTIAL (PRIMARY) HYPERTENSION (5) Thrombocytopenia Code(s): D69.6 - THROMBOCYTOPENIA, UNSPECIFIED Assessment/Plan Current Medications Generic Name Dose Route Start Last Admin Trade Name Freq PRN Reason Stop Dose Admin Acetaminophen 325 mg 10/13/17 14:07 Tylenol - PO Q6H PRN PAIN LEVEL 6-10 Chlorhexidine Gluconate 1 applic 10/13/17 22:00 10/13/17 23:00 Hibiclens For Decolonization - TP 1 applic HS DAVIDA Administration Clindamycin Phosphate 300 mg in 50 mls @ 100 mls/hr 10/12/17 13:00 10/14/17 09:21 Cleocin 300 Mg Premix Ivpb IVPB 100 mls/hr Q8H-IV DAVIDA Administration Protocol Piperacillin Sod/Tazobactam 50 mls @ 100 mls/hr 10/12/17 13:00 10/14/17 09:20 Sod 2.25 gm/ Dextrose IVPB 100 mls/hr Q8H-IV DAVIDA Administration Protocol Sodium Chloride 1,000 mls @ 100 mls/hr 10/12/17 23:00 10/14/17 02:01 Normal Saline - IV 100 mls/hr ASDIR DAVIDA Administration Dopamine HCl/Dextrose 400,000 mcg in 250 mls @ 10.631 mls/hr 10/13/17 01:45 10/14/17 09:17 Dopamine 400 Mg/D5w - IVPB 4 mcg/kg/min TITR DAVIDA 8.505 mls/hr Titration Protocol 5 MCG/KG/MIN Famotidine/Sodium Chloride 20 mg in 50 mls @ 100 mls/hr 10/14/17 10:00 11:31 Pepcid 20 Mg Premixed Ivpb - IVPB 100 mls/hr BID DAVIDA Administration Metoprolol Succinate 25 mg 10/12/17 10:00 10/14/17 09:22 Toprol Xl - PO Not Given DAILY DAVIDA Mupirocin 1 applic 10/13/17 10:00 10/14/17 09:22 Bactroban Ointment (For Decolonization) - NS 10/18/17 09:59 1 applic BID DAVIDA Administration Oxycodone HCl 5 mg 10/13/17 14:07 Roxicodone - PO Q6H PRN PAIN LEVEL 6-10 Laboratory Tests 10/14/17 05:30 KRYS Screen Pending c-ANCA Pending Proteinase 3 (PR3) Pending p-ANCA Pending Atypical p-ANCA Pending Myeloperoxidase Ab Pending Double Strand DNA Ab Pending Glomerular Base Memb Ab Pending Impression 1. SHILA 2. s/p fall 3. thrombocytopenia 4. HTN 5. leukocytosis 6. anemia 7. sepsis Plan - renal function is starting to improve - shila likely from sepsis and hypotension - maintain a map of 65 - cont to monitor renal function - follow wbc - follow renal workup - wound care to leg - monitor urine output - monitor platelets, improving
--- NOTE | 2017-10-14 16:09 | PN ---
Progress Note (short form) - Note Progress Note: continues to be on dopamine Unable to obtain ROS Constitutional: Yes: Calm, Thin Eyes: Yes: Conjunctiva Clear HENT: Yes: Atraumatic, Normocephalic Neck: Yes: Supple Cardiovascular: Yes: Regular Rate and Rhythm Respiratory: Yes: Regular, CTA Bilaterally Gastrointestinal: Yes: Normal Bowel Sounds, Soft Labs: Last Vital Signs Temp Pulse Resp BP Pulse Ox 98.2 F 90 17 120/70 99 10/14/17 06:00 10/14/17 09:17 10/14/17 07:45 10/14/17 09:17 10/13/17 23:38 CBC, BMP 10/14/17 06:00 10/14/17 05:30 Current Medications Generic Name Dose Route Start Last Admin Trade Name Freq PRN Reason Stop Dose Admin Acetaminophen 325 mg 10/13/17 14:07 Tylenol - PO Q6H PRN PAIN LEVEL 6-10 Chlorhexidine Gluconate 1 applic 10/13/17 22:00 10/13/17 23:00 Hibiclens For Decolonization - TP 1 applic HS DAVIAD Administration Clindamycin Phosphate 300 mg in 50 mls @ 100 mls/hr 10/12/17 13:00 10/14/17 09:21 Cleocin 300 Mg Premix Ivpb IVPB 100 mls/hr Q8H-IV DAVIDA Administration Protocol Piperacillin Sod/Tazobactam 50 mls @ 100 mls/hr 10/12/17 13:00 10/14/17 09:20 Sod 2.25 gm/ Dextrose IVPB 100 mls/hr Q8H-IV DAVIDA Administration Protocol Sodium Chloride 1,000 mls @ 100 mls/hr 10/12/17 23:00 10/14/17 02:01 Normal Saline - IV 100 mls/hr ASDIR DAVIDA Administration Dopamine HCl/Dextrose 400,000 mcg in 250 mls @ 10.631 mls/hr 10/13/17 01:45 10/14/17 09:17 Dopamine 400 Mg/D5w - IVPB 4 mcg/kg/min TITR DAVIDA 8.505 mls/hr Titration Protocol 5 MCG/KG/MIN Famotidine/Sodium Chloride 20 mg in 50 mls @ 100 mls/hr 10/14/17 10:00 11:31 Pepcid 20 Mg Premixed Ivpb - IVPB 100 mls/hr BID DAVIDA Administration Metoprolol Succinate 25 mg 10/12/17 10:00 10/14/17 09:22 Toprol Xl - PO Not Given DAILY [facility] Mupirocin 1 applic 10/13/17 10:00 10/14/17 09:22 Bactroban Ointment (For Decolonization) - NS 10/18/17 09:59 1 applic BID DAVIDA Administration Oxycodone HCl 5 mg 10/13/17 14:07 Roxicodone - PO Q6H PRN PAIN LEVEL 6-10 await w/u, suspicious for hematological disorder to discuss with family.
--- NOTE | 2017-10-14 16:11 | PN ---
Progress Note (short form) - Note Progress Note: Last Vital Signs Temp Pulse Resp BP Pulse Ox 98.2 F 90 17 120/70 99 10/14/17 06:00 10/14/17 09:17 10/14/17 07:45 10/14/17 09:17 10/13/17 23:38 CBC, BMP 10/14/17 06:00 10/14/17 05:30 Current Medications Generic Name Dose Route Start Last Admin Trade Name Freq PRN Reason Stop Dose Admin Acetaminophen 325 mg 10/13/17 14:07 Tylenol - PO Q6H PRN PAIN LEVEL 6-10 Chlorhexidine Gluconate 1 applic 10/13/17 22:00 10/13/17 23:00 Hibiclens For Decolonization - TP 1 applic HS DAVIDA Administration Clindamycin Phosphate 300 mg in 50 mls @ 100 mls/hr 10/12/17 13:00 10/14/17 09:21 Cleocin 300 Mg Premix Ivpb IVPB 100 mls/hr Q8H-IV DAVIDA Administration Protocol Piperacillin Sod/Tazobactam 50 mls @ 100 mls/hr 10/12/17 13:00 10/14/17 09:20 Sod 2.25 gm/ Dextrose IVPB 100 mls/hr Q8H-IV DAVIDA Administration Protocol Sodium Chloride 1,000 mls @ 100 mls/hr 10/12/17 23:00 10/14/17 02:01 Normal Saline - IV 100 mls/hr ASDIR DAVIDA Administration Dopamine HCl/Dextrose 400,000 mcg in 250 mls @ 10.631 mls/hr 10/13/17 01:45 10/14/17 09:17 Dopamine 400 Mg/D5w - IVPB 4 mcg/kg/min TITR DAVIDA 8.505 mls/hr Titration Protocol 5 MCG/KG/MIN Famotidine/Sodium Chloride 20 mg in 50 mls @ 100 mls/hr 10/14/17 10:00 11:31 Pepcid 20 Mg Premixed Ivpb - IVPB 100 mls/hr BID DAVIDA Administration Metoprolol Succinate 25 mg 10/12/17 10:00 10/14/17 09:22 Toprol Xl - PO Not Given DAILY [facility] Mupirocin 1 applic 10/13/17 10:00 10/14/17 09:22 Bactroban Ointment (For Decolonization) - NS 10/18/17 09:59 1 applic BID DAVIDA Administration Oxycodone HCl 5 mg 10/13/17 14:07 Roxicodone - PO Q6H PRN PAIN LEVEL 6-10
--- NOTE | 2017-10-14 17:45 | PN ---
Progress Note, Physician History of Present Illness: feeling better - Current Medication List Current Medications: Active Medications Acetaminophen (Tylenol -) 325 mg PO Q6H PRN PRN Reason: PAIN LEVEL 6-10 Chlorhexidine Gluconate (Hibiclens For Decolonization -) 1 applic TP HS [facility] Last Admin: 10/13/17 23:00 Dose: 1 applic Clindamycin Phosphate (Cleocin 300 Mg Premix Ivpb) 300 mg in 50 mls @ 100 mls/ hr IVPB Q8H-IV DAVIDA; Protocol Last Admin: 10/14/17 17:33 Dose: 100 mls/hr Piperacillin Sod/Tazobactam (Sod 2.25 gm/ Dextrose) 50 mls @ 100 mls/hr IVPB Q8H-IV DAVIDA; Protocol Last Admin: 10/14/17 17:33 Dose: 100 mls/hr Sodium Chloride (Normal Saline -) 1,000 mls @ 100 mls/hr IV ASDIR DAVIDA Last Admin: 10/14/17 02:01 Dose: 100 mls/hr Dopamine HCl/Dextrose (Dopamine 400 Mg/D5w -) 400,000 mcg in 250 mls @ 10.631 mls/hr IVPB TITR DAVIDA; Protocol Last Titration: 10/14/17 09:17 Dose: 4 mcg/kg/min, 8.505 mls/hr Famotidine/Sodium Chloride (Pepcid 20 Mg Premixed Ivpb -) 20 mg in 50 mls @ 100 mls/hr IVPB BID [facility] Last Admin: 10/14/17 11:31 Dose: 100 mls/hr Metoprolol Succinate (Toprol Xl -) 25 mg PO DAILY [facility] Last Admin: 10/14/17 09:22 Dose: Not Given Mupirocin (Bactroban Ointment (For Decolonization) -) 1 applic NS BID [facility] Stop: 10/18/17 09:59 Last Admin: 10/14/17 09:22 Dose: 1 applic Oxycodone HCl (Roxicodone -) 5 mg PO Q6H PRN PRN Reason: PAIN LEVEL 6-10 - Objective Vital Signs: Vital Signs Temperature 98.2 F 10/14/17 06:00 Pulse Rate 90 10/14/17 09:17 Respiratory Rate 17 10/14/17 09:00 Blood Pressure 120/70 06/07/18 09:17 O2 Sat by Pulse Oximetry (%) 99 10/14/17 09:00 Constitutional: Yes: Calm HENT: Yes: Atraumatic Neck: Yes: Supple Cardiovascular: Yes: Regular Rate and Rhythm Respiratory: Yes: Rhonchi Gastrointestinal: Yes: Normal Bowel Sounds Extremities: Yes: WNL Neurological: Yes: Alert Labs: CBC, BMP 10/14/17 06:00 10/14/17 05:30 INR, PTT INR 0.91 (0.82-1.09) 10/14/17 06:00 Fibrinogen 429.0 mg/dL (238-498) 10/14/17 06:00 Problem List - Problems (1) CKD (chronic kidney disease) Assessment/Plan: will monitor on ivf nephro on board Code(s): N18.9 - CHRONIC KIDNEY DISEASE, UNSPECIFIED (2) Dementia Assessment/Plan: stable Code(s): F03.90 - UNSPECIFIED DEMENTIA WITHOUT BEHAVIORAL DISTURBANCE (3) HTN (hypertension) Assessment/Plan: on hold due to low bp Code(s): I10 - ESSENTIAL (PRIMARY) HYPERTENSION (4) Thrombocytopenia Assessment/Plan: monitor hematology on board Code(s): D69.6 - THROMBOCYTOPENIA, UNSPECIFIED (5) Superficial laceration of face Code(s): S01.81XA - LACERATION W/O FOREIGN BODY OF OTH PART OF HEAD, INIT ENCNTR (6) Leukocytosis Assessment/Plan: elevated today dehydration vs any blood disorder Code(s): D72.829 - ELEVATED WHITE BLOOD CELL COUNT, UNSPECIFIED Assessment/Plan cc time 35
--- NOTE | 2017-10-14 18:56 | PN ---
Progress Note, Physician History of Present Illness: continued to have low blood pressure transferred to icu now on dopamine drip awake and alert no discomfort - Current Medication List Current Medications: Active Medications Acetaminophen (Tylenol -) 325 mg PO Q6H PRN PRN Reason: PAIN LEVEL 6-10 Chlorhexidine Gluconate (Hibiclens For Decolonization -) 1 applic TP HS DAVIDA Last Admin: 10/13/17 23:00 Dose: 1 applic Clindamycin Phosphate (Cleocin 300 Mg Premix Ivpb) 300 mg in 50 mls @ 100 mls/ hr IVPB Q8H-IV DAVIDA; Protocol Last Admin: 10/14/17 17:33 Dose: 100 mls/hr Piperacillin Sod/Tazobactam (Sod 2.25 gm/ Dextrose) 50 mls @ 100 mls/hr IVPB Q8H-IV DAVIDA; Protocol Last Admin: 10/14/17 17:33 Dose: 100 mls/hr Sodium Chloride (Normal Saline -) 1,000 mls @ 100 mls/hr IV ASDIR [facility]IDA Last Admin: 10/14/17 02:01 Dose: 100 mls/hr Dopamine HCl/Dextrose (Dopamine 400 Mg/D5w -) 400,000 mcg in 250 mls @ 10.631 mls/hr IVPB TITR DAVIDA; Protocol Last Titration: 10/14/17 17:00 Dose: 0 mcg/kg/min, 0 mls/hr Famotidine/Sodium Chloride (Pepcid 20 Mg Premixed Ivpb -) 20 mg in 50 mls @ 100 mls/hr IVPB BID [facility] Last Admin: 10/14/17 11:31 Dose: 100 mls/hr Metoprolol Succinate (Toprol Xl -) 25 mg PO DAILY [facility] Last Admin: 10/14/17 09:22 Dose: Not Given Mupirocin (Bactroban Ointment (For Decolonization) -) 1 applic NS BID [facility] Stop: 10/18/17 09:59 Last Admin: 10/14/17 09:22 Dose: 1 applic Oxycodone HCl (Roxicodone -) 5 mg PO Q6H PRN PRN Reason: PAIN LEVEL 6-10 - Objective Vital Signs: Vital Signs Temperature 99.2 F 10/14/17 14:00 Pulse Rate 104 H 10/14/17 17:00 Respiratory Rate 20 10/14/17 17:00 Blood Pressure 111/63 10/14/17 17:00 O2 Sat by Pulse Oximetry (%) 99 10/14/17 09:00 Constitutional: Yes: No Distress, Calm Cardiovascular: Yes: Regular Rate and Rhythm Respiratory: Yes: Regular, On Nasal O2, Poor Air Entry Gastrointestinal: Yes: Normal Bowel Sounds, Soft Musculoskeletal: Yes: WNL Extremities: Yes: Other Edema: LLE: Trace, RLE: Trace Neurological: Yes: Alert, Other Psychiatric: Yes: Other Labs: CBC, BMP 10/14/17 06:00 10/14/17 05:30 INR, PTT INR 0.91 (0.82-1.09) 10/14/17 06:00 Fibrinogen 429.0 mg/dL (238-498) 10/14/17 06:00 - ....Imaging Chest X-ray: Report Reviewed, Image Reviewed Assessment/Plan Problem List - Problems (1) CKD (chronic kidney disease) Code(s): N18.9 - CHRONIC KIDNEY DISEASE, UNSPECIFIED (2) Dementia Code(s): F03.90 - UNSPECIFIED DEMENTIA WITHOUT BEHAVIORAL DISTURBANCE (3) Fall Code(s): W19.XXXA - UNSPECIFIED FALL, INITIAL ENCOUNTER Qualifiers: Encounter type: initial encounter Qualified Code(s): W19.XXXA - Unspecified fall, initial encounter (4) HTN (hypertension) Code(s): I10 - ESSENTIAL (PRIMARY) HYPERTENSION (5) Thrombocytopenia Code(s): D69.6 - THROMBOCYTOPENIA, UNSPECIFIED Septic Shock R/O TTP Acute Kidney Injury +Troponins plan continue abx hydration pressers as needed close monitoring hydration rest as per icu monitor bp all cx reports noted cc time 40 min
--- NOTE | 2017-10-14 19:00 | PN ---
Progress Note, Physician History of Present Illness: continues to be stable off of pressors wbc trending down - Current Medication List Current Medications: Active Medications Acetaminophen (Tylenol -) 325 mg PO Q6H PRN PRN Reason: PAIN LEVEL 6-10 Chlorhexidine Gluconate (Hibiclens For Decolonization -) 1 applic TP HS [facility] Last Admin: 10/13/17 23:00 Dose: 1 applic Clindamycin Phosphate (Cleocin 300 Mg Premix Ivpb) 300 mg in 50 mls @ 100 mls/ hr IVPB Q8H-IV DAVIDA; Protocol Last Admin: 10/14/17 17:33 Dose: 100 mls/hr Piperacillin Sod/Tazobactam (Sod 2.25 gm/ Dextrose) 50 mls @ 100 mls/hr IVPB Q8H-IV DAVIDA; Protocol Last Admin: 10/14/17 17:33 Dose: 100 mls/hr Sodium Chloride (Normal Saline -) 1,000 mls @ 100 mls/hr IV ASDIR [facility] Last Admin: 10/14/17 02:01 Dose: 100 mls/hr Dopamine HCl/Dextrose (Dopamine 400 Mg/D5w -) 400,000 mcg in 250 mls @ 10.631 mls/hr IVPB TITR DAVIDA; Protocol Last Titration: 10/14/17 17:00 Dose: 0 mcg/kg/min, 0 mls/hr Famotidine/Sodium Chloride (Pepcid 20 Mg Premixed Ivpb -) 20 mg in 50 mls @ 100 mls/hr IVPB BID [facility] Last Admin: 10/14/17 11:31 Dose: 100 mls/hr Metoprolol Succinate (Toprol Xl -) 25 mg PO DAILY [facility] Last Admin: 10/14/17 09:22 Dose: Not Given Mupirocin (Bactroban Ointment (For Decolonization) -) 1 applic NS BID [facility] Stop: 10/18/17 09:59 Last Admin: 10/14/17 09:22 Dose: 1 applic Oxycodone HCl (Roxicodone -) 5 mg PO Q6H PRN PRN Reason: PAIN LEVEL 6-10 - Objective Vital Signs: Vital Signs Temperature 99.2 F 10/14/17 14:00 Pulse Rate 104 H 10/14/17 17:00 Respiratory Rate 20 10/14/17 17:00 Blood Pressure 111/63 10/14/17 17:00 O2 Sat by Pulse Oximetry (%) 99 10/14/17 09:00 Constitutional: Yes: No Distress, Calm Cardiovascular: Yes: Regular Rate and Rhythm, S1 Respiratory: Yes: Regular, Poor Air Entry Gastrointestinal: Yes: Normal Bowel Sounds, Soft Musculoskeletal: Yes: WNL Extremities: Yes: WNL Neurological: Yes: Alert Psychiatric: Yes: Alert Labs: CBC, BMP 10/14/17 06:00 10/14/17 05:30 INR, PTT INR 0.91 (0.82-1.09) 10/14/17 06:00 Fibrinogen 429.0 mg/dL (238-498) 10/14/17 06:00 Assessment/Plan Problem List - Problems (1) CKD (chronic kidney disease) Code(s): N18.9 - CHRONIC KIDNEY DISEASE, UNSPECIFIED (2) Dementia Code(s): F03.90 - UNSPECIFIED DEMENTIA WITHOUT BEHAVIORAL DISTURBANCE (3) Fall Code(s): W19.XXXA - UNSPECIFIED FALL, INITIAL ENCOUNTER Qualifiers: Encounter type: initial encounter Qualified Code(s): W19.XXXA - Unspecified fall, initial encounter (4) HTN (hypertension) Code(s): I10 - ESSENTIAL (PRIMARY) HYPERTENSION (5) Thrombocytopenia Code(s): D69.6 - THROMBOCYTOPENIA, UNSPECIFIED Septic Shock R/O TTP Acute Kidney Injury +Troponins plan continue abx hydration pressers as needed close monitoring hydration rest as per icu monitor bp all cx reports noted watch wbc cc time 40 min
[2017-10-14] MEDS: CHLORHEXIDINE GLUCONATE 4% CLEANSER FOR DECOLONIZATION TP SCH (21:15)
[2017-10-14] MEDS ORDERED: LACTATED RINGERS SOLUTION 1,000 ML/1,000 ML INFUS.BAG IV SCH (23:30)
[2017-10-15] MEDS: CLINDAMYCIN 300 MG PREMIX IVPB 300 MG/50 ML BAG IVPB SCH ×3 (01:10→18:15)
[2017-10-15] MEDS: PIPERACILLIN/TAZOB 2.25 GM 2.25 GM in DEXTROSE 5%-WATER - 50 ML IVPB SCH ×3 (01:10→18:15)
[2017-10-15] MEDS: DOPAMINE 400 MG/D5W - 400,000 MCG/250 ML INFUS.BAG IVPB SCH (01:45)
--- NOTE | 2017-10-15 05:42 | PN ---
Physical Exam: SUBJECTIVE: Patient seen and examined no acute events over night AAOx2 person and time , no place up in bed , no new complains OBJECTIVE: Vital Signs Period Temp Pulse Resp BP Sys/Hammond Pulse Ox Last 24 Hr 98.2 F-99.5 F 88-117 17-28 90-120/53-87 99-99 GENERAL: AAOx2 , in NAD, HEAD: Normal with no signs of trauma. EYES: PERRL, extraocular movements intact, sclera anicteric, conjunctiva clear. ENT: Ears normal, nares patent, oropharynx clear without exudates, moist mucous membranes. NECK: Trachea midline, full range of motion, supple. LUNGS: Breath sounds equal, clear to auscultation bilaterally, no wheezes, no crackles, no accessory muscle use. HEART: Regular rate and rhythm, S1, S2 without murmur, rub or gallop. ABDOMEN: Soft, nontender, nondistended, normoactive bowel sounds, no guarding, no rebound, EXTREMITIES: 2+ pulses, warm, well-perfused, +2 Edema , multiple echymoses on legs and arms NEUROLOGICAL: Cranial nerves II through XII grossly intact. Normal speech, gait not observed. PSYCH: Normal mood, normal affect. some delusions SKIN: Warm, dry, normal turgor, Laboratory Results - last 24 hr 10/14/17 10/14/17 10/14/17 05:30 05:30 05:40 WBC RBC Hgb Hct MCV MCH MCHC RDW Plt Count MPV Absolute Neuts (auto) Neutrophils % Lymphocytes % Monocytes % Eosinophils % Basophils % Nucleated RBC % PT with INR INR PTT (Actin FS) Fibrinogen Sodium 142 Potassium 3.8 Chloride 112 H Carbon Dioxide 17 L Anion Gap 13 BUN 66 H Creatinine 2.3 H Creat Clearance w eGFR 27.29 POC Glucometer [phone] Random Glucose 90 Calcium 7.4 L Phosphorus 3.0 Magnesium 2.4 Total Bilirubin 1.5 H AST 46 H ALT 31 D Alkaline Phosphatase 125 H D Total Protein 5.9 L Albumin 1.6 L Direct Antiglob Test Negative 10/14/17 10/14/17 10/14/17 05:59 06:00 06:00 WBC 48.2 H* RBC 3.10 L Hgb 9.9 L Hct 31.1 L MCV 100.3 H MCH 32.1 MCHC 32.0 RDW 15.7 Plt Count 34 L* MPV 10.6 Absolute Neuts (auto) 13.2 Neutrophils % 27.3 L Lymphocytes % 69.2 H Monocytes % 2.7 L Eosinophils % 0.1 D Basophils % 0.7 Nucleated RBC % 0 PT with INR 10.30 INR 0.91 PTT (Actin FS) 22.8 L D Fibrinogen 429.0 Sodium Potassium Chloride Carbon Dioxide Anion Gap BUN Creatinine Creat Clearance w eGFR POC Glucometer [phone] Random Glucose Calcium Phosphorus Magnesium Total Bilirubin AST ALT Alkaline Phosphatase Total Protein Albumin Direct Antiglob Test Active Medications Generic Name Dose Route Start Last Admin Trade Name Freq PRN Reason Stop Dose Admin Acetaminophen 325 mg 10/13/17 14:07 Tylenol - PO Q6H PRN PAIN LEVEL 6-10 Chlorhexidine Gluconate 1 applic 10/13/17 22:00 10/14/17 21:15 Hibiclens For Decolonization - TP 1 applic HS DAVIDA Administration Clindamycin Phosphate 300 mg in 50 mls @ 100 mls/hr 10/12/17 13:00 10/15/17 01:10 Cleocin 300 Mg Premix Ivpb IVPB 100 mls/hr Q8H-IV [facility]IDA Administration Protocol Piperacillin Sod/Tazobactam 50 mls @ 100 mls/hr 10/12/17 13:00 10/15/17 01:10 Sod 2.25 gm/ Dextrose IVPB 100 mls/hr Q8H-IV DAVIDA Administration Protocol Dopamine HCl/Dextrose 400,000 mcg in 250 mls @ 10.631 mls/hr 10/13/17 01:45 10/15/17 01:45 Dopamine 400 Mg/D5w - IVPB Not Given TITR [facility]IDA Protocol 5 MCG/KG/MIN Famotidine/Sodium Chloride 20 mg in 50 mls @ 100 mls/hr 10/14/17 10:00 21:15 Pepcid 20 Mg Premixed Ivpb - IVPB 100 mls/hr BID [facility] Administration Lactated Ringer's 1,000 ml in 1,000 mls @ 100 mls/hr 10/14/17 23:30 10/14/17 23:30 Lactated Ringers Solution IV 100 mls/hr ASDIR [facility] Administration Metoprolol Succinate 25 mg 10/12/17 10:00 10/14/17 09:22 Toprol Xl - PO Not Given DAILY [facility] Mupirocin 1 applic 10/13/17 10:00 10/14/17 21:16 Bactroban Ointment (For Decolonization) - NS 10/18/17 09:59 1 applic BID [facility] Administration Oxycodone HCl 5 mg 10/13/17 14:07 Roxicodone - PO Q6H PRN PAIN LEVEL 6-10 CBC, BMP 10/15/17 06:00 10/15/17 06:00 ASSESSMENT/PLAN: #Cardio vascular 1- Hypotension possible 2/2 sepsis due to unknown etiology vs poor oral intake * cx with no growth to date * cxr no acute pathology * UA negative * continue abx per ID * Echo with normal EF >55% * elevated troponin at presentation suggestive of demand ischemia * hold BB for systolic BP less than 90 * continue IV fluids NS 100 CC/hr * monitor in ICU on telemetry * monitor off pressers #ID 1- possible Sepsis unknown source cx negative to date repeat cbc, bmp in AM continue abx f/u ID recommendations #Neurology 1-S/P FAll * images with no acute pathology , soft tissue swelling in left medial malleolus * pain control IV tyelnol PRN * fall precautions 2- Chronic dementia * unknown base line . confusion while in house * monitor * AAOx 2 * aspiration precautions # 1- JOHANA on CKD * likely pre renal, FeNa 0.3% suggestive of such as is clinical presentation of sepsis/hypotension * c/w IV fluids as above * f/u BUN/CR * US kidney c/w medical renal disease, no obstruction noted * maintaine Lopez * I&O daily # # BPH * continue flomax. continue finasteride #Hematology/oncology 1- / Leucocytosis- thrombocytopenia * Plt 33, mild splenomegaly on imaging at ~14cm * dr hernandez consulted recommend to check LDH/B12/folate/SPEP/FLOW/FISH and coag * hold ASA due to low plt #FEN * F: NS @ 100 CC/hr * E: Monitor * N: sodium controlled diet #proph * DVTs : SCDS for now * GI : no need for now #Dispo * continue to monitor in to ICU Dispo: We will continue to follow the patient. Thank you for this consultative opportunity. total critical time 45 min Visit type - Emergency Visit Emergency Visit: Yes ED Registration Date: 10/11/17 Care time: The patient presented to the Emergency Department on the above date and was hospitalized for further evaluation of their emergent condition. - New Patient This patient is new to me today: No - Critical Care Critical Care patient: Yes Total Critical Care Time (in minutes): 45 Critical Care Statement: The care of this patient involved high complexity decision making to prevent further life threatening deterioration of the patient 's condition and/or to evaluate & treat vital organ system(s) failure or risk of failure.
[2017-10-15 06:19] LABS: HEMATOCRIT 29.5 % (35.4-49); HEMOGLOBIN 9.4 GM/dL (11.7-16.9); MCH 32.1 pg (25.7-33.7); MEAN CELL VOLUME 100.2 fl (80-96); MEAN PLT VOLUME 9.7 fl (7.5-11.1); RBC 2.94 M/mm3 (4.00-5.60); RDW 16.2 % (11.9-15.9)
[2017-10-15 06:36] LABS: PLATELET COUNT 33 K/MM3 (134-434); WHITE BLOOD COUNT 50.3 K/mm3 (4.0-10.0)
[2017-10-15 06:38] LABS: ALBUMIN 1.6 g/dl (3.4-5.0); ANION GAP 9 (8-16); BILIRUBIN,TOTAL 1.3 mg/dL (0.2-1.0); BLOOD UREA NITROGEN 69 mg/dL (7-18); CALCIUM 7.8 mg/dL (8.5-10.1); CHLORIDE 113 mmol/L (98-107); CO2 20 mmol/L (21-32); CREATININE 2.4 mg/dL (0.7-1.3); GLUCOSE,RANDOM 101 mg/dL (74-106); MAGNESIUM 2.2 mg/dL (1.8-2.4); PHOSPHOROUS 2.2 mg/dL (2.5-4.9); POTASSIUM 3.8 mmol/L (3.5-5.1); SGOT/AST 46 U/L (15-37); SGPT/ALT 37 U/L (12-78); SODIUM 142 mmol/L (136-145); TOT PROT 5.9 g/dl (6.4-8.2)
[2017-10-15 06:39] LABS: ALK PHOS 203 U/L (45-117)
[2017-10-15 06:44] LABS: INR 0.99 (0.82-1.09); PROTHROMBIN TIME (PATIENT) 11.2 SEC (9.7-13.0)
[2017-10-15 06:47] LABS: ACTIVATED PTT 35.9 SECONDS (26.9-34.4)
--- NOTE | 2017-10-15 09:01 | PATH ---
Surgical Pathology Report Patient Name: [facility]. Rec. #: [id number] /Age/Gender: 1935 (Age: 82) / M Account: [id number] Location: [address] [place] [address] Taken: 10/12/2017 Received: 10/13/2017 Reported: 10/15/2017 Physicians: Claude Rothman M.D. 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 See [facility] report ([id number]) for additional details. Myelodysplasia FISH Panel Interpretation: No evidence of deletion 5q or monosomy 5 is present. No evidence of deletion 7q or monosomy 7 is present. No evidence of trisomy 8 (+8) is present. No evidence of deletion 13q14.2 is present. No evidence of a rearrangement of 11q23. No evidence of a deletion of the p53 (17p13) locus. No evidence of deletion 20q12 is present. Comments: The study is negative for many of the most common recurrent genetic abnormalities in Myelodysplastic Syndrome. Seven multiplex probe stain procedures were performed. See [facility] report ([id number]) for additional details. JAK2 (V617F) MUTATION ANALYSIS BY PCR Results: Only the wild-type JAK2 sequence was detected. Interpretation: Negative for JAK2 (V617F) Mutation. Comment: The acquired somatic V617F JAK2 mutation has been found in a majority of patients with Polycythemia Vera (PV) (>90%), and 30-50% of patients with either essential thrombocythemia (ET) and or myelofibrosis (MF) according to literature. The mutation is not detected in normal individuals. However, a negative result does not exclude the presence of the V617F mutation at a level below the limit of detection for this assay. Final diagnosis requires correlation with other clinical and laboratory data. See [facility] report ([id number]) for additional details. Dr. Church was notified on October 15, 2017. Electronically Signed Pavan Richmond M.D. Addendum Reported: 10/18/2017 Addendum Diagnosis BCR-ABL Gene Rearrangement (IS) Analysis performed and interpreted at [facility] laboratory, [place], [place] ([id number]) shows the following: RESULTS: Negative BCR/ABL Major breakpoints (b2a2 and b3a2): Not Detected BCR/ABL Minor breakpoint (e1a2): Not Detected INTERPRETATION: No BCR-ABL translocation was detected in this sample. COMMENT: The BCR/ABL fusion gene, formed by rearrangement of the breakpoint cluster region (bcr) on chromosome 22 with the c-abl tank-oncogene on chromosome 9, is present in vast majority of CML patients, and 35% of Meriwether chromosome-positive precursor B-ALL. The BCR/ABL rearrangement causes production of an abnormal tyrosine kinase molecule with increased activity. The major breakpoint cluster region (M-bcr), detected mainly in CML, has two junctional variants, b2a2 and b3a2. The M-bcr gives rise to the BCR/ABL1 chimeric protein p210, a deregulated tyrosine kinase. The minor breakpoint region (m-bcr), detected in a small minority of CML patients and in a majority of patients with Meriwether chromosome-positive precursor B-ALL, codes for the BCR/ABL1 chimeric protein p190. The quantification of BCR-ABL major breakpoints (b3a2 and b2a2) was compliant with the updated international recommendations, and contains an IS-MMR Calibrator to the International Scale (IS). The International Randomized Study of Interferon (IRIS) trial and follow up studies have demonstrated that achieving MMR, or a 3-log reduction in BCR-ABL1 expression from the standardized baseline level, is a noel clinical outcome. See [facility] report ([id number]) for additional details. Pavan Richmond M.D.
[2017-10-15] MEDS ORDERED: PT OWN MED DRAWER 7, Y5N ONE (09:22)
[2017-10-15] MEDS ORDERED: PIPERACILLIN/TAZOBACTAM 2.25 GM VIAL IVPB ONE ×3 (09:23→22:15)
[2017-10-15] MEDS ORDERED: DEXTROSE 5%-WATER - 50 ML IVPB ONE ×3 (09:23→22:15)
[2017-10-15] MEDS: MUPIROCIN 2% TOPICAL OINTMENT FOR DECOLONIZATION NS SCH ×2 (09:28→21:05)
[2017-10-15] MEDS: FAMOTIDINE 20 MG/50 ML IVPB 20 MG/50 ML MG IVPB SCH ×2 (09:28→21:05)
[2017-10-15] MEDS: metoPROLOL SUCCINATE 25 MG TAB.SR.24H (FP) PO SCH (09:29)
[2017-10-15] MEDS ORDERED: NAPH,MB-DB/K PH,MBDB POWDER PACKET PO ONE (09:30)
[2017-10-15 09:44] LABS: MACROCYTOSIS 1+; PLATELET ESTIMATE DECREASED
--- NOTE | 2017-10-15 11:35 | PN ---
Teaching Attending Note Name of Resident: Alex Guallpa ATTENDING PHYSICIAN STATEMENT I saw and evaluated the patient. I reviewed the resident's note and discussed the case with the resident. I agree with the resident's findings and plan as documented. SUBJECTIVE: Patient seen and examined in the ICU. Awake and alert and interactive, but mildly confused. Currently off Dopamine drip for hemodynamic support. Reports left leg pain is better. Denies CP or SOB. OBJECTIVE: Intake & Output 10/12/17 10/13/17 10/14/17 10/15/17 23:59 23:59 23:59 23:59 Intake Total 3600 5770.2 3493.2 1470 Output Total 50 1000 1650 300 Balance 3550 4770.2 1843.2 1170 Weight 125 lb 137 lb 2.04 oz 141 lb 6.4 oz Last Vital Signs Temp Pulse Resp BP Pulse Ox 99 F 110 H 18 114/82 98 10/15/17 06:00 10/15/17 07:56 10/15/17 07:56 10/15/17 07:56 10/15/17 09:00 Active Medications Acetaminophen (Tylenol -) 325 mg PO Q6H PRN PRN Reason: PAIN LEVEL 6-10 Chlorhexidine Gluconate (Hibiclens For Decolonization -) 1 applic TP HS [facility] Last Admin: 10/14/17 21:15 Dose: 1 applic Clindamycin Phosphate (Cleocin 300 Mg Premix Ivpb) 300 mg in 50 mls @ 100 mls/ hr IVPB Q8H-IV DAVIDA; Protocol Last Admin: 10/15/17 01:10 Dose: 100 mls/hr Piperacillin Sod/Tazobactam (Sod 2.25 gm/ Dextrose) 50 mls @ 100 mls/hr IVPB Q8H-IV DAVIDA; Protocol Last Admin: 10/15/17 09:28 Dose: 100 mls/hr Dopamine HCl/Dextrose (Dopamine 400 Mg/D5w -) 400,000 mcg in 250 mls @ 10.631 mls/hr IVPB TITR DAVIDA; Protocol Last Admin: 10/15/17 01:45 Dose: Not Given Famotidine/Sodium Chloride (Pepcid 20 Mg Premixed Ivpb -) 20 mg in 50 mls @ 100 mls/hr IVPB BID [facility] Last Admin: 10/15/17 09:28 Dose: 100 mls/hr Lactated Ringer's (Lactated Ringers Solution) 1,000 ml in 1,000 mls @ 100 mls/ hr IV ASDIR [facility] Last Admin: 10/14/17 23:30 Dose: 100 mls/hr Metoprolol Succinate (Toprol Xl -) 25 mg PO DAILY [facility] Last Admin: 10/15/17 09:29 Dose: 25 mg Mupirocin (Bactroban Ointment (For Decolonization) -) 1 applic NS BID [facility] Stop: 10/18/17 09:59 Last Admin: 10/15/17 09:28 Dose: 1 applic Oxycodone HCl (Roxicodone -) 5 mg PO Q6H PRN PRN Reason: PAIN LEVEL 6-10 Gen: NAD at rest Heart: RRR Lung: decreased breath sounds at the bases Abd: soft, nontender Ext: LLE weeping ulcers, ecchymosis Laboratory Results - last 24 hr 10/14/17 10/15/17 10/15/17 05:30 06:00 06:00 WBC 50.3 H* RBC 2.94 L Hgb 9.4 L Hct 29.5 L MCV 100.2 H MCH 32.1 MCHC 32.0 RDW 16.2 H Plt Count 33 L* MPV 9.7 Absolute Neuts (auto) 14.6 Neutrophils % No Result Required. Neutrophils % (Manual) 17.0 L Band Neutrophils % 0.0 Lymphocytes % No Result Required. Lymphocytes % (Manual) 76.0 H* Monocytes % (Manual) 3 L D Eosinophils % (Manual) 0.0 Basophils % (Manual) 0.0 Myelocytes % (Man) 3 H Promyelocytes % (Man) 0 Blast Cells % (Manual) 0 Nucleated RBC % 0 Metamyelocytes 1 Platelet Estimate Decreased Polychromasia 1+ Macrocytosis 1+ Haptoglobin 125 PT with INR INR PTT (Actin FS) Fibrinogen Sodium 142 Potassium 3.8 Chloride 113 H Carbon Dioxide 20 L Anion Gap 9 BUN 69 H Creatinine 2.4 H Creat Clearance w eGFR 25.98 Random Glucose 101 Calcium 7.8 L Phosphorus 2.2 L D Magnesium 2.2 Total Bilirubin 1.3 H AST 46 H ALT 37 Alkaline Phosphatase 203 H D Total Protein 5.9 L Albumin 1.6 L 10/15/17 06:00 WBC RBC Hgb Hct MCV MCH MCHC RDW Plt Count MPV Absolute Neuts (auto) Neutrophils % Neutrophils % (Manual) Band Neutrophils % Lymphocytes % Lymphocytes % (Manual) Monocytes % (Manual) Eosinophils % (Manual) Basophils % (Manual) Myelocytes % (Man) Promyelocytes % (Man) Blast Cells % (Manual) Nucleated RBC % Metamyelocytes Platelet Estimate Polychromasia Macrocytosis Haptoglobin PT with INR 11.20 INR 0.99 PTT (Actin FS) 35.9 H D Fibrinogen 429.0 Sodium Potassium Chloride Carbon Dioxide Anion Gap BUN Creatinine Creat Clearance w eGFR Random Glucose Calcium Phosphorus Magnesium Total Bilirubin AST ALT Alkaline Phosphatase Total Protein Albumin ASSESSMENT AND PLAN: Septic Shock Anemia/Thrombocytopenia Suspected Hematologic process Acute Kidney Injury +Troponins - ABX Per ID - Local wound care per surgery - IVF - Monitor off pressors - monitor urine output, creatinine - Hematology work up ongoing - Normal transfusion thresholds - Cardiac Telemetry monitoring Dr Lr Critical care time spent in reviewing chart, evaluating patient and formulating plan 35 min
[2017-10-15] MEDS ORDERED: SODIUM CHLORIDE 1,000 ML IV SCH (14:00)
[2017-10-15 14:11] LABS: HBSAG SCREEN Negative (Negative); HEP B CORE AB, TOT Negative (Negative)
--- NOTE | 2017-10-15 14:26 | PN ---
Progress Note (short form) - Note Progress Note: PAtient seen and examined Feels well. Confused. Denies any complaints. Oriented in person only Vital Signs Period Temp Pulse Resp BP Sys/Hammond Pulse Ox Last 24 Hr 99 F-99.5 F 91-117 18-28 100-129/53-87 98-99 Cor: RSR, No murmurs, No gallops Lungs: Clear to P&A Abd: Soft, Normal bowel sounds, No organomegaly Ext:No significant edema Abnormal Lab Results 10/15/17 10/15/17 10/15/17 06:00 06:00 06:00 WBC 50.3 H* RBC 2.94 L Hgb 9.4 L Hct 29.5 L MCV 100.2 H RDW 16.2 H Plt Count 33 L* Neutrophils % (Manual) 17.0 L Lymphocytes % (Manual) 76.0 H* Monocytes % (Manual) 3 L D Myelocytes % (Man) 3 H PTT (Actin FS) 35.9 H D Chloride 113 H Carbon Dioxide 20 L BUN 69 H Creatinine 2.4 H Calcium 7.8 L Phosphorus 2.2 L D Total Bilirubin 1.3 H AST 46 H Alkaline Phosphatase 203 H D Total Protein 5.9 L Albumin 1.6 L Active Medications Generic Name Dose Route Start Last Admin Trade Name Freq PRN Reason Stop Dose Admin Acetaminophen 325 mg 10/13/17 14:07 Tylenol - PO Q6H PRN PAIN LEVEL 6-10 Chlorhexidine Gluconate 1 applic 10/13/17 22:00 10/14/17 21:15 Hibiclens For Decolonization - TP 1 applic HS [facility] Administration Clindamycin Phosphate 300 mg in 50 mls @ 100 mls/hr 10/12/17 13:00 10/15/17 12:21 Cleocin 300 Mg Premix Ivpb IVPB 100 mls/hr Q8H-IV DAVIDA Administration Protocol Piperacillin Sod/Tazobactam 50 mls @ 100 mls/hr 10/12/17 13:00 10/15/17 09:28 Sod 2.25 gm/ Dextrose IVPB 100 mls/hr Q8H-IV DAVIDA Administration Protocol Dopamine HCl/Dextrose 400,000 mcg in 250 mls @ 10.631 mls/hr 10/13/17 01:45 10/15/17 01:45 Dopamine 400 Mg/D5w - IVPB Not Given TITR [facility] Protocol 5 MCG/KG/MIN Famotidine/Sodium Chloride 20 mg in 50 mls @ 100 mls/hr 10/14/17 10:00 09:28 Pepcid 20 Mg Premixed Ivpb - IVPB 100 mls/hr BID [facility] Administration Lactated Ringer's 1,000 ml in 1,000 mls @ 100 mls/hr 10/14/17 23:30 10/14/17 23:30 Lactated Ringers Solution IV 100 mls/hr ASDIR [facility] Administration Sodium Chloride 1,000 mls @ 100 mls/hr 10/15/17 14:00 Normal Saline - IV ASDIR DAVIDA Metoprolol Succinate 25 mg 10/12/17 10:00 10/15/17 09:29 Toprol Xl - PO 25 mg DAILY [facility] Administration Mupirocin 1 applic 10/13/17 10:00 10/15/17 09:28 Bactroban Ointment (For Decolonization) - NS 10/18/17 09:59 1 applic BID [facility] Administration Oxycodone HCl 5 mg 10/13/17 14:07 Roxicodone - PO Q6H PRN PAIN LEVEL 6-10 A/P 82 y/o patient with septic shock, JOHANA, severe dementia Leukocytosis/thrombocytopenia secondary to lymphoproliferative disorder--? 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 Left message on his sons phone--Felix Márquez will request palliative care consult
--- NOTE | 2017-10-15 16:12 | PN ---
Progress Note, Physician History of Present Illness: Pt seen and examined at bedside. He remains confused. He denies shortness of breath. - Current Medication List Current Medications: Active Medications Acetaminophen (Tylenol -) 325 mg PO Q6H PRN PRN Reason: PAIN LEVEL 6-10 Chlorhexidine Gluconate (Hibiclens For Decolonization -) 1 applic TP HS [facility] Last Admin: 10/14/17 21:15 Dose: 1 applic Clindamycin Phosphate (Cleocin 300 Mg Premix Ivpb) 300 mg in 50 mls @ 100 mls/ hr IVPB Q8H-IV [facility]; Protocol Last Admin: 10/15/17 12:21 Dose: 100 mls/hr Piperacillin Sod/Tazobactam (Sod 2.25 gm/ Dextrose) 50 mls @ 100 mls/hr IVPB Q8H-IV [facility]; Protocol Last Admin: 10/15/17 09:28 Dose: 100 mls/hr Dopamine HCl/Dextrose (Dopamine 400 Mg/D5w -) 400,000 mcg in 250 mls @ 10.631 mls/hr IVPB TITR [facility]; Protocol Last Admin: 10/15/17 01:45 Dose: Not Given Famotidine/Sodium Chloride (Pepcid 20 Mg Premixed Ivpb -) 20 mg in 50 mls @ 100 mls/hr IVPB BID [facility] Last Admin: 10/15/17 09:28 Dose: 100 mls/hr Lactated Ringer's (Lactated Ringers Solution) 1,000 ml in 1,000 mls @ 100 mls/ hr IV ASDIR [facility] Last Admin: 10/14/17 23:30 Dose: 100 mls/hr Sodium Chloride (Normal Saline -) 1,000 mls @ 100 mls/hr IV ASDIR [facility] Metoprolol Succinate (Toprol Xl -) 25 mg PO DAILY [facility] Last Admin: 10/15/17 09:29 Dose: 25 mg Mupirocin (Bactroban Ointment (For Decolonization) -) 1 applic NS BID [facility] Stop: 10/18/17 09:59 Last Admin: 10/15/17 09:28 Dose: 1 applic Oxycodone HCl (Roxicodone -) 5 mg PO Q6H PRN PRN Reason: PAIN LEVEL 6-10 - Objective Vital Signs: Vital Signs Temperature 99 F 10/15/17 14:00 Pulse Rate 98 H 10/15/17 14:00 Respiratory Rate 18 10/15/17 14:00 Blood Pressure 124/78 10/15/17 14:00 O2 Sat by Pulse Oximetry (%) 98 10/15/17 09:00 Constitutional: Yes: Calm Eyes: Yes: Conjunctiva Clear HENT: Yes: Atraumatic Neck: Yes: Supple Cardiovascular: Yes: S1, S2 Respiratory: Yes: On Nasal O2 Gastrointestinal: Yes: Soft Genitourinary: Yes: Lopez Present Musculoskeletal: Yes: Muscle Weakness Edema: Yes Edema: LLE: Trace, RLE: Trace Integumentary: Yes: Erythema Wound/Incision: Yes: Dressing Dry and Intact Neurological: Yes: Confusion Labs: CBC, BMP 10/15/17 06:00 10/15/17 06:00 INR, PTT INR 0.99 (0.82-1.09) 10/15/17 06:00 Fibrinogen 429.0 mg/dL (238-498) 10/15/17 06:00 Problem List - Problems (1) CKD (chronic kidney disease) Code(s): N18.9 - CHRONIC KIDNEY DISEASE, UNSPECIFIED (2) Dementia Code(s): F03.90 - UNSPECIFIED DEMENTIA WITHOUT BEHAVIORAL DISTURBANCE (3) Fall Code(s): W19.XXXA - UNSPECIFIED FALL, INITIAL ENCOUNTER Qualifiers: Encounter type: initial encounter Qualified Code(s): W19.XXXA - Unspecified fall, initial encounter (4) HTN (hypertension) Code(s): I10 - ESSENTIAL (PRIMARY) HYPERTENSION (5) Thrombocytopenia Code(s): D69.6 - THROMBOCYTOPENIA, UNSPECIFIED Assessment/Plan Current Medications Generic Name Dose Route Start Last Admin Trade Name Freq PRN Reason Stop Dose Admin Acetaminophen 325 mg 10/13/17 14:07 Tylenol - PO Q6H PRN PAIN LEVEL 6-10 Chlorhexidine Gluconate 1 applic 10/13/17 22:00 10/14/17 21:15 Hibiclens For Decolonization - TP 1 applic HS [facility]IDA Administration Clindamycin Phosphate 300 mg in 50 mls @ 100 mls/hr 10/12/17 13:00 10/15/17 12:21 Cleocin 300 Mg Premix Ivpb IVPB 100 mls/hr Q8H-IV [facility] Administration Protocol Piperacillin Sod/Tazobactam 50 mls @ 100 mls/hr 10/12/17 13:00 10/15/17 09:28 Sod 2.25 gm/ Dextrose IVPB 100 mls/hr Q8H-IV [facility] Administration Protocol Dopamine HCl/Dextrose 400,000 mcg in 250 mls @ 10.631 mls/hr 10/13/17 01:45 10/15/17 01:45 Dopamine 400 Mg/D5w - IVPB Not Given TITR [facility] Protocol 5 MCG/KG/MIN Famotidine/Sodium Chloride 20 mg in 50 mls @ 100 mls/hr 10/14/17 10:00 09:28 Pepcid 20 Mg Premixed Ivpb - IVPB 100 mls/hr BID [facility] Administration Lactated Ringer's 1,000 ml in 1,000 mls @ 100 mls/hr 10/14/17 23:30 10/14/17 23:30 Lactated Ringers Solution IV 100 mls/hr ASDIR [facility] Administration Sodium Chloride 1,000 mls @ 100 mls/hr 10/15/17 14:00 Normal Saline - IV ASDIR [facility] Metoprolol Succinate 25 mg 10/12/17 10:00 10/15/17 09:29 Toprol Xl - PO 25 mg DAILY [facility] Administration Mupirocin 1 applic 10/13/17 10:00 10/15/17 09:28 Bactroban Ointment (For Decolonization) - NS 10/18/17 09:59 1 applic BID [facility] Administration Oxycodone HCl 5 mg 10/13/17 14:07 Roxicodone - PO Q6H PRN PAIN LEVEL 6-10 Laboratory Tests 10/14/17 10/14/17 05:30 05:30 NIRMALA & SPEP Interp Pending Total Protein (NIRMALA) Pending KRYS Screen Pending c-ANCA Pending Proteinase 3 (PR3) Pending p-ANCA Pending Atypical p-ANCA Pending Myeloperoxidase Ab Pending Double Strand DNA Ab <1 Glomerular Base Memb Ab Pending Hep Bs Antigen Negative Hep Bs Antibody Non reactive Hep B Core Total Ab Negative HCV Quantitation Pending Hepatitis C RNA Pending Impression 1. JOHANA 2. s/p fall 3. thrombocytopenia 4. HTN 5. leukocytosis 6. anemia 7. sepsis 8. 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
--- NOTE | 2017-10-15 18:03 | PN ---
Progress Note, Physician History of Present Illness: continues to be stable no new issues patients wbc still going up mentally patient is confused - Current Medication List Current Medications: Active Medications Acetaminophen (Tylenol -) 325 mg PO Q6H PRN PRN Reason: PAIN LEVEL 6-10 Chlorhexidine Gluconate (Hibiclens For Decolonization -) 1 applic TP HS [facility] Last Admin: 10/14/17 21:15 Dose: 1 applic Clindamycin Phosphate (Cleocin 300 Mg Premix Ivpb) 300 mg in 50 mls @ 100 mls/ hr IVPB Q8H-IV [facility]; Protocol Last Admin: 10/15/17 12:21 Dose: 100 mls/hr Piperacillin Sod/Tazobactam (Sod 2.25 gm/ Dextrose) 50 mls @ 100 mls/hr IVPB Q8H-IV [facility]; Protocol Last Admin: 10/15/17 09:28 Dose: 100 mls/hr Dopamine HCl/Dextrose (Dopamine 400 Mg/D5w -) 400,000 mcg in 250 mls @ 10.631 mls/hr IVPB TITR [facility]IDA; Protocol Last Admin: 10/15/17 01:45 Dose: Not Given Famotidine/Sodium Chloride (Pepcid 20 Mg Premixed Ivpb -) 20 mg in 50 mls @ 100 mls/hr IVPB BID [facility] Last Admin: 10/15/17 09:28 Dose: 100 mls/hr Lactated Ringer's (Lactated Ringers Solution) 1,000 ml in 1,000 mls @ 100 mls/ hr IV ASDIR [facility] Last Admin: 10/14/17 23:30 Dose: 100 mls/hr Sodium Chloride (Normal Saline -) 1,000 mls @ 100 mls/hr IV ASDIR [facility] Metoprolol Succinate (Toprol Xl -) 25 mg PO DAILY [facility] Last Admin: 10/15/17 09:29 Dose: 25 mg Mupirocin (Bactroban Ointment (For Decolonization) -) 1 applic NS BID [facility] Stop: 10/18/17 09:59 Last Admin: 10/15/17 09:28 Dose: 1 applic Oxycodone HCl (Roxicodone -) 5 mg PO Q6H PRN PRN Reason: PAIN LEVEL 6-10 - Objective Vital Signs: Vital Signs Temperature 99 F 10/15/17 14:00 Pulse Rate 98 H 10/15/17 14:00 Respiratory Rate 18 10/15/17 14:00 Blood Pressure 124/78 10/15/17 14:00 O2 Sat by Pulse Oximetry (%) 98 10/15/17 09:00 Constitutional: Yes: No Distress, Calm Cardiovascular: Yes: Regular Rate and Rhythm Respiratory: Yes: Regular, CTA Bilaterally Gastrointestinal: Yes: Normal Bowel Sounds, Soft Musculoskeletal: Yes: WNL Extremities: Yes: Other Edema: LLE: Trace, RLE: Trace Neurological: Yes: Alert, Confusion Labs: CBC, BMP 10/15/17 06:00 10/15/17 06:00 INR, PTT INR 0.99 (0.82-1.09) 10/15/17 06:00 Fibrinogen 429.0 mg/dL (238-498) 10/15/17 06:00 Assessment/Plan Problem List - Problems (1) CKD (chronic kidney disease) Code(s): N18.9 - CHRONIC KIDNEY DISEASE, UNSPECIFIED (2) Dementia Code(s): F03.90 - UNSPECIFIED DEMENTIA WITHOUT BEHAVIORAL DISTURBANCE (3) Fall Code(s): W19.XXXA - UNSPECIFIED FALL, INITIAL ENCOUNTER Qualifiers: Encounter type: initial encounter Qualified Code(s): W19.XXXA - Unspecified fall, initial encounter (4) HTN (hypertension) Code(s): I10 - ESSENTIAL (PRIMARY) HYPERTENSION (5) Thrombocytopenia Code(s): D69.6 - THROMBOCYTOPENIA, UNSPECIFIED Septic Shock R/O TTP Acute Kidney Injury +Troponins plan continue abx hydration close monitoring hydration rest as per icu monitor bp all cx reports noted watch wbc await for onco input will probably consider tapering abx cc time 40 min
--- NOTE | 2017-10-15 19:00 | PN ---
Progress Note, Physician History of Present Illness: comfortable - Current Medication List Current Medications: Active Medications Acetaminophen (Tylenol -) 325 mg PO Q6H PRN PRN Reason: PAIN LEVEL 6-10 Chlorhexidine Gluconate (Hibiclens For Decolonization -) 1 applic TP HS [facility] Last Admin: 10/14/17 21:15 Dose: 1 applic Clindamycin Phosphate (Cleocin 300 Mg Premix Ivpb) 300 mg in 50 mls @ 100 mls/ hr IVPB Q8H-IV DAVIDA; Protocol Last Admin: 10/15/17 18:15 Dose: 100 mls/hr Piperacillin Sod/Tazobactam (Sod 2.25 gm/ Dextrose) 50 mls @ 100 mls/hr IVPB Q8H-IV [facility]IDA; Protocol Last Admin: 10/15/17 18:15 Dose: 100 mls/hr Famotidine/Sodium Chloride (Pepcid 20 Mg Premixed Ivpb -) 20 mg in 50 mls @ 100 mls/hr IVPB BID [facility] Last Admin: 10/15/17 09:28 Dose: 100 mls/hr Sodium Chloride (Normal Saline -) 1,000 mls @ 100 mls/hr IV ASDIR [facility] Last Admin: 10/15/17 18:15 Dose: 100 mls/hr Metoprolol Succinate (Toprol Xl -) 25 mg PO DAILY [facility] Last Admin: 10/15/17 09:29 Dose: 25 mg Mupirocin (Bactroban Ointment (For Decolonization) -) 1 applic NS BID [facility] Stop: 10/18/17 09:59 Last Admin: 10/15/17 09:28 Dose: 1 applic Oxycodone HCl (Roxicodone -) 5 mg PO Q6H PRN PRN Reason: PAIN LEVEL 6-10 - Objective Vital Signs: Vital Signs Temperature 99 F 10/15/17 14:00 Pulse Rate 98 H 10/15/17 14:00 Respiratory Rate 18 10/15/17 14:00 Blood Pressure 124/78 10/15/17 14:00 O2 Sat by Pulse Oximetry (%) 98 10/15/17 09:00 Constitutional: Yes: No Distress HENT: Yes: Atraumatic Neck: Yes: Supple Cardiovascular: Yes: Regular Rate and Rhythm Respiratory: Yes: Rhonchi Gastrointestinal: Yes: Normal Bowel Sounds Extremities: Yes: WNL Peripheral Pulses WNL: No Neurological: Yes: Alert Labs: CBC, BMP 10/15/17 06:00 10/15/17 06:00 INR, PTT INR 0.99 (0.82-1.09) 10/15/17 06:00 Fibrinogen 429.0 mg/dL (238-498) 10/15/17 06:00 Problem List - Problems (1) CKD (chronic kidney disease) Assessment/Plan: will monitor on ivf nephro on board Code(s): N18.9 - CHRONIC KIDNEY DISEASE, UNSPECIFIED (2) Dementia Assessment/Plan: stable Code(s): F03.90 - UNSPECIFIED DEMENTIA WITHOUT BEHAVIORAL DISTURBANCE (3) HTN (hypertension) Assessment/Plan: on toprol now Code(s): I10 - ESSENTIAL (PRIMARY) HYPERTENSION (4) Thrombocytopenia Assessment/Plan: monitor hematology on board Code(s): D69.6 - THROMBOCYTOPENIA, UNSPECIFIED (5) Superficial laceration of face Code(s): S01.81XA - LACERATION W/O FOREIGN BODY OF OTH PART OF HEAD, INIT ENCNTR (6) Leukocytosis Assessment/Plan: elevated today dehydration vs any blood disorder heme onc note reviewed Code(s): D72.829 - ELEVATED WHITE BLOOD CELL COUNT, UNSPECIFIED Assessment/Plan cc time 35
[2017-10-15] MEDS: CHLORHEXIDINE GLUCONATE 4% CLEANSER FOR DECOLONIZATION TP SCH (21:05)
[2017-10-16] MEDS: CLINDAMYCIN 300 MG PREMIX IVPB 300 MG/50 ML BAG IVPB SCH ×3 (01:07→18:50)
[2017-10-16] MEDS: PIPERACILLIN/TAZOB 2.25 GM 2.25 GM in DEXTROSE 5%-WATER - 50 ML IVPB SCH ×3 (01:07→18:50)
[2017-10-16 06:35] LABS: ALBUMIN 1.5 g/dl (3.4-5.0); ANION GAP 8 (8-16); BILIRUBIN,TOTAL 1.5 mg/dL (0.2-1.0); BLOOD UREA NITROGEN 63 mg/dL (7-18); CALCIUM 7.9 mg/dL (8.5-10.1); CHLORIDE 116 mmol/L (98-107); CO2 22 mmol/L (21-32); CREATININE 2.4 mg/dL (0.7-1.3); GLUCOSE,RANDOM 110 mg/dL (74-106); MAGNESIUM 2.5 mg/dL (1.8-2.4); PHOSPHOROUS 2.7 mg/dL (2.5-4.9); POTASSIUM 3.6 mmol/L (3.5-5.1); SGOT/AST 31 U/L (15-37); SGPT/ALT 33 U/L (12-78); SODIUM 146 mmol/L (136-145); TOT PROT 5.8 g/dl (6.4-8.2)
[2017-10-16 06:36] LABS: ALK PHOS 180 U/L (45-117)
--- NOTE | 2017-10-16 09:07 | PN ---
Progress Note (short form) - Note Progress Note: Patient seen and examined in the ICU. Awake and alert and interactive, but remains confused. Remains off Dopamine drip for hemodynamic support. Denies CP or SOB. OBJECTIVE: Intake & Output 10/13/17 10/14/17 10/15/17 10/16/17 23:59 23:59 23:59 23:59 Intake Total 5770.2 3493.2 3320 1020 Output Total 1000 1650 1150 1200 Balance 4770.2 1843.2 2170 -180 Weight 125 lb 137 lb 2.04 oz 141 lb 6.4 oz 142 lb 9.6 oz Last Vital Signs Temp Pulse Resp BP Pulse Ox 98.2 F 110 H 22 144/76 98 10/16/17 06:00 10/16/17 08:00 10/16/17 08:00 10/16/17 08:00 10/15/17 21:00 Active Medications Acetaminophen (Tylenol -) 325 mg PO Q6H PRN PRN Reason: PAIN LEVEL 6-10 Chlorhexidine Gluconate (Hibiclens For Decolonization -) 1 applic TP HS [facility] Last Admin: 10/15/17 21:05 Dose: 1 applic Clindamycin Phosphate (Cleocin 300 Mg Premix Ivpb) 300 mg in 50 mls @ 100 mls/ hr IVPB Q8H-IV DAVIDA; Protocol Last Admin: 10/16/17 01:07 Dose: 100 mls/hr Piperacillin Sod/Tazobactam (Sod 2.25 gm/ Dextrose) 50 mls @ 100 mls/hr IVPB Q8H-IV [facility]IDA; Protocol Last Admin: 10/16/17 01:07 Dose: 100 mls/hr Famotidine/Sodium Chloride (Pepcid 20 Mg Premixed Ivpb -) 20 mg in 50 mls @ 100 mls/hr IVPB BID [facility]IDA Last Admin: 10/15/17 21:05 Dose: 100 mls/hr Sodium Chloride (Normal Saline -) 1,000 mls @ 100 mls/hr IV ASDIR [facility]IDA Last Admin: 10/15/17 18:15 Dose: 100 mls/hr Metoprolol Succinate (Toprol Xl -) 25 mg PO DAILY [facility] Last Admin: 10/15/17 09:29 Dose: 25 mg Mupirocin (Bactroban Ointment (For Decolonization) -) 1 applic NS BID [facility] Stop: 10/18/17 09:59 Last Admin: 10/15/17 21:05 Dose: 1 applic Oxycodone HCl (Roxicodone -) 5 mg PO Q6H PRN PRN Reason: PAIN LEVEL 6-10 Gen: NAD at rest, confused Heart: RRR Lung: decreased breath sounds at the bases Abd: soft, nontender Ext: LLE weeping ulcers, ecchymosis Laboratory Results - last 24 hr 10/14/17 10/14/17 10/15/17 05:30 05:30 06:00 Neutrophils % (Manual) 17.0 L Band Neutrophils % 0.0 Lymphocytes % (Manual) 76.0 H* Monocytes % (Manual) 3 L D Eosinophils % (Manual) 0.0 Basophils % (Manual) 0.0 Myelocytes % (Man) 3 H Promyelocytes % (Man) 0 Blast Cells % (Manual) 0 Nucleated RBC % 0 Metamyelocytes 1 Platelet Estimate Decreased Polychromasia 1+ Macrocytosis 1+ Sodium Potassium Chloride Carbon Dioxide Anion Gap BUN Creatinine Creat Clearance w eGFR Random Glucose Calcium Phosphorus Magnesium Total Bilirubin AST ALT Alkaline Phosphatase Total Protein Albumin Beta Globulins 0.7 NIRMALA & SPEP Interp Total Protein (NIRMALA) 5.8 L Albumin (NIRMALA) 2.0 L Albumin/Globulin (NIRMALA) 0.6 L Xzpid-5-Rlgvuwelh NIRMALA 0.4 Ljsts-9-Lpbneqdwf NIRMALA 0.8 Gamma Globulins (NIRMALA) 2.0 H NIRMALA M-Jeremy 1.3 H NIRMALA Comments IEP IgG 780 IEP IgA 165 IEP IgM 2041 H KRYS Screen Negative Double Strand DNA Ab <1 Hepatitis A Ab Total Negative Hep Bs Antigen Negative Hep Bs Antibody Non reactive Hep B Core Total Ab Negative 10/16/17 05:30 Neutrophils % (Manual) Band Neutrophils % Lymphocytes % (Manual) Monocytes % (Manual) Eosinophils % (Manual) Basophils % (Manual) Myelocytes % (Man) Promyelocytes % (Man) Blast Cells % (Manual) Nucleated RBC % Metamyelocytes Platelet Estimate Polychromasia Macrocytosis Sodium 146 H Potassium 3.6 Chloride 116 H Carbon Dioxide 22 Anion Gap 8 BUN 63 H Creatinine 2.4 H Creat Clearance w eGFR 25.98 Random Glucose 110 H Calcium 7.9 L Phosphorus 2.7 D Magnesium 2.5 H Total Bilirubin 1.5 H AST 31 D ALT 33 Alkaline Phosphatase 180 H Total Protein 5.8 L Albumin 1.5 L Beta Globulins NIRMALA & SPEP Interp Total Protein (NIRMALA) Albumin (NIRMALA) Albumin/Globulin (NIRMALA) Duuar-2-Vcsgcxswl NIRMALA Focoz-4-Mlobenvwn NIRMALA Gamma Globulins (NIRMALA) NIRMALA M-Jeremy NIRMALA Comments IEP IgG IEP IgA IEP IgM KRYS Screen Double Strand DNA Ab Hepatitis A Ab Total Hep Bs Antigen Hep Bs Antibody Hep B Core Total Ab ASSESSMENT AND PLAN: Septic Shock Anemia/Thrombocytopenia Suspected Hematologic process Acute Kidney Injury +Troponins - ABX Per ID - Local wound care per surgery - IVF - Monitor off pressors - monitor urine output, creatinine - Hematology work up ongoing - Normal transfusion thresholds - Cardiac Telemetry monitoring Dr Lr Critical care time spent in reviewing chart, evaluating patient and formulating plan 35 min
[2017-10-16] MEDS ORDERED: DEXTROSE 5%-WATER - 50 ML IVPB ONE ×3 (10:35→21:12)
[2017-10-16] MEDS ORDERED: PIPERACILLIN/TAZOBACTAM 2.25 GM VIAL IVPB ONE ×3 (10:35→21:12)
[2017-10-16] MEDS: FAMOTIDINE 20 MG/50 ML IVPB 20 MG/50 ML MG IVPB SCH ×2 (10:54→21:31)
[2017-10-16] MEDS: metoPROLOL SUCCINATE 25 MG TAB.SR.24H (FP) PO SCH (10:55)
[2017-10-16] MEDS: MUPIROCIN 2% TOPICAL OINTMENT FOR DECOLONIZATION NS SCH ×2 (10:55→21:31)
--- NOTE | 2017-10-16 15:03 | PN ---
Progress Note, Physician History of Present Illness: Pt seen and examined at bedside. He is awake and appears comfortable. - Current Medication List Current Medications: Active Medications Acetaminophen (Tylenol -) 325 mg PO Q6H PRN PRN Reason: PAIN LEVEL 6-10 Chlorhexidine Gluconate (Hibiclens For Decolonization -) 1 applic TP HS [facility] Last Admin: 10/15/17 21:05 Dose: 1 applic Clindamycin Phosphate (Cleocin 300 Mg Premix Ivpb) 300 mg in 50 mls @ 100 mls/ hr IVPB Q8H-IV DAVIDA; Protocol Last Admin: 10/16/17 10:57 Dose: 100 mls/hr Piperacillin Sod/Tazobactam (Sod 2.25 gm/ Dextrose) 50 mls @ 100 mls/hr IVPB Q8H-IV DAVIDA; Protocol Last Admin: 10/16/17 10:54 Dose: 100 mls/hr Famotidine/Sodium Chloride (Pepcid 20 Mg Premixed Ivpb -) 20 mg in 50 mls @ 100 mls/hr IVPB BID [facility] Last Admin: 10/16/17 10:54 Dose: 100 mls/hr Sodium Chloride (Normal Saline -) 1,000 mls @ 100 mls/hr IV ASDIR [facility] Last Admin: 10/15/17 18:15 Dose: 100 mls/hr Metoprolol Succinate (Toprol Xl -) 25 mg PO DAILY [facility] Last Admin: 10/16/17 10:55 Dose: 25 mg Mupirocin (Bactroban Ointment (For Decolonization) -) 1 applic NS BID [facility] Stop: 10/18/17 09:59 Last Admin: 10/16/17 10:55 Dose: 1 applic Oxycodone HCl (Roxicodone -) 5 mg PO Q6H PRN PRN Reason: PAIN LEVEL 6-10 - Objective Vital Signs: Vital Signs Temperature 98.2 F 10/16/17 06:00 Pulse Rate 71 10/16/17 12:00 Respiratory Rate 15 10/16/17 12:00 Blood Pressure 125/73 10/16/17 12:00 O2 Sat by Pulse Oximetry (%) 100 10/16/17 09:00 Constitutional: Yes: Calm Eyes: Yes: Conjunctiva Clear HENT: Yes: Atraumatic Neck: Yes: Supple Cardiovascular: Yes: S1, S2 Respiratory: Yes: CTA Bilaterally Gastrointestinal: Yes: Soft Genitourinary: Yes: Incontinence Musculoskeletal: Yes: Muscle Weakness Edema: No Wound/Incision: Yes: Dressing Dry and Intact Neurological: Yes: Confusion Labs: CBC, BMP 10/15/17 06:00 10/16/17 05:30 INR, PTT INR 0.99 (0.82-1.09) 10/15/17 06:00 Fibrinogen 429.0 mg/dL (238-498) 10/15/17 06:00 Problem List - Problems (1) CKD (chronic kidney disease) Code(s): N18.9 - CHRONIC KIDNEY DISEASE, UNSPECIFIED (2) Dementia Code(s): F03.90 - UNSPECIFIED DEMENTIA WITHOUT BEHAVIORAL DISTURBANCE (3) Fall Code(s): W19.XXXA - UNSPECIFIED FALL, INITIAL ENCOUNTER Qualifiers: Encounter type: initial encounter Qualified Code(s): W19.XXXA - Unspecified fall, initial encounter (4) HTN (hypertension) Code(s): I10 - ESSENTIAL (PRIMARY) HYPERTENSION (5) Thrombocytopenia Code(s): D69.6 - THROMBOCYTOPENIA, UNSPECIFIED Assessment/Plan Current Medications Generic Name Dose Route Start Last Admin Trade Name Freq PRN Reason Stop Dose Admin Acetaminophen 325 mg 10/13/17 14:07 Tylenol - PO Q6H PRN PAIN LEVEL 6-10 Chlorhexidine Gluconate 1 applic 10/13/17 22:00 10/15/17 21:05 Hibiclens For Decolonization - TP 1 applic HS [facility]IDA Administration Clindamycin Phosphate 300 mg in 50 mls @ 100 mls/hr 10/12/17 13:00 10/16/17 10:57 Cleocin 300 Mg Premix Ivpb IVPB 100 mls/hr Q8H-IV DAVIDA Administration Protocol Piperacillin Sod/Tazobactam 50 mls @ 100 mls/hr 10/12/17 13:00 10/16/17 10:54 Sod 2.25 gm/ Dextrose IVPB 100 mls/hr Q8H-IV DAVIDA Administration Protocol Famotidine/Sodium Chloride 20 mg in 50 mls @ 100 mls/hr 10/14/17 10:00 10:54 Pepcid 20 Mg Premixed Ivpb - IVPB 100 mls/hr BID [facility] Administration Sodium Chloride 1,000 mls @ 100 mls/hr 10/15/17 14:00 10/15/17 18:15 Normal Saline - IV 100 mls/hr ASDIR [facility]IDA Administration Metoprolol Succinate 25 mg 10/12/17 10:00 10/16/17 10:55 Toprol Xl - PO 25 mg DAILY [facility] Administration Mupirocin 1 applic 10/13/17 10:00 10/16/17 10:55 Bactroban Ointment (For Decolonization) - NS 10/18/17 09:59 1 applic BID [facility] Administration Oxycodone HCl 5 mg 10/13/17 14:07 Roxicodone - PO Q6H PRN PAIN LEVEL 6-10 Impression 1. JOHANA 2. s/p fall 3. thrombocytopenia 4. HTN 5. leukocytosis 6. anemia 7. sepsis 8. r/o lymphoproliferative disorder 9. hypernatremia Plan - change fluids to 1/2 ns - repeat labs in am - oncology follow up - voiding trial - johana likely from sepsis and hypotension - maintain a map of 65 - cont to monitor renal function
--- NOTE | 2017-10-16 15:47 | PN ---
Progress Note, Physician History of Present Illness: Pt seen and examined. Chart/labs reviewed. He is currently alert, confused, without acute distress. Off vasopressors, afebrile. - Current Medication List Current Medications: Active Medications Acetaminophen (Tylenol -) 325 mg PO Q6H PRN PRN Reason: PAIN LEVEL 6-10 Chlorhexidine Gluconate (Hibiclens For Decolonization -) 1 applic TP HS [facility] Last Admin: 10/15/17 21:05 Dose: 1 applic Clindamycin Phosphate (Cleocin 300 Mg Premix Ivpb) 300 mg in 50 mls @ 100 mls/ hr IVPB Q8H-IV [facility]IDA; Protocol Last Admin: 10/16/17 10:57 Dose: 100 mls/hr Piperacillin Sod/Tazobactam (Sod 2.25 gm/ Dextrose) 50 mls @ 100 mls/hr IVPB Q8H-IV [facility]; Protocol Last Admin: 10/16/17 10:54 Dose: 100 mls/hr Famotidine/Sodium Chloride (Pepcid 20 Mg Premixed Ivpb -) 20 mg in 50 mls @ 100 mls/hr IVPB BID [facility] Last Admin: 10/16/17 10:54 Dose: 100 mls/hr Sodium Chloride (1/2 Normal Saline) 1,000 mls @ 83 mls/hr IV ASDIR [facility] Metoprolol Succinate (Toprol Xl -) 25 mg PO DAILY [facility] Last Admin: 10/16/17 10:55 Dose: 25 mg Mupirocin (Bactroban Ointment (For Decolonization) -) 1 applic NS BID [facility] Stop: 10/18/17 09:59 Last Admin: 10/16/17 10:55 Dose: 1 applic Oxycodone HCl (Roxicodone -) 5 mg PO Q6H PRN PRN Reason: PAIN LEVEL 6-10 - Objective Vital Signs: Vital Signs Temperature 98.2 F 10/16/17 06:00 Pulse Rate 71 10/16/17 12:00 Respiratory Rate 15 10/16/17 12:00 Blood Pressure 125/73 10/16/17 12:00 O2 Sat by Pulse Oximetry (%) 100 10/16/17 09:00 Constitutional: Yes: No Distress, Calm Cardiovascular: Yes: Regular Rate and Rhythm Respiratory: Yes: Regular Gastrointestinal: Yes: Normal Bowel Sounds, Soft Genitourinary: Yes: Lopez Present Extremities: Yes: Erythema (LE erythema/tenderness/ulcers oozing through dressing), Other (ecchymoses) Neurological: Yes: Alert Labs: CBC, BMP 10/15/17 06:00 10/16/17 05:30 INR, PTT INR 0.99 (0.82-1.09) 10/15/17 06:00 Fibrinogen 429.0 mg/dL (238-498) 10/15/17 06:00 - ....Imaging Chest X-ray: Report Reviewed Problem List - Problems (1) Dementia Code(s): F03.90 - UNSPECIFIED DEMENTIA WITHOUT BEHAVIORAL DISTURBANCE (2) Fall Code(s): W19.XXXA - UNSPECIFIED FALL, INITIAL ENCOUNTER Qualifiers: Encounter type: initial encounter Qualified Code(s): W19.XXXA - Unspecified fall, initial encounter (3) HTN (hypertension) Code(s): I10 - ESSENTIAL (PRIMARY) HYPERTENSION (4) Leukocytosis Code(s): D72.829 - ELEVATED WHITE BLOOD CELL COUNT, UNSPECIFIED (5) Thrombocytopenia Code(s): D69.6 - THROMBOCYTOPENIA, UNSPECIFIED Assessment/Plan 82 y.o. male admitted s/p fall Septic Shock Leukocytosis/Thrombocytopenia Acute Kidney Injury +Troponins RLE cellulitis/ulcers -- pt off vasopressors -- wbc remains elevated, hematology evaluation -- cont. current antibiotics for now -- continue monitor vitals, cbc/bmp -- continue dressing changes cc: 40 min
--- NOTE | 2017-10-16 17:48 | PN ---
Progress Note, Physician History of Present Illness: comfortable - Current Medication List Current Medications: Active Medications Acetaminophen (Tylenol -) 325 mg PO Q6H PRN PRN Reason: PAIN LEVEL 6-10 Chlorhexidine Gluconate (Hibiclens For Decolonization -) 1 applic TP HS [facility] Last Admin: 10/15/17 21:05 Dose: 1 applic Clindamycin Phosphate (Cleocin 300 Mg Premix Ivpb) 300 mg in 50 mls @ 100 mls/ hr IVPB Q8H-IV [facility]; Protocol Last Admin: 10/16/17 10:57 Dose: 100 mls/hr Piperacillin Sod/Tazobactam (Sod 2.25 gm/ Dextrose) 50 mls @ 100 mls/hr IVPB Q8H-IV [facility]IDA; Protocol Last Admin: 10/16/17 10:54 Dose: 100 mls/hr Famotidine/Sodium Chloride (Pepcid 20 Mg Premixed Ivpb -) 20 mg in 50 mls @ 100 mls/hr IVPB BID [facility] Last Admin: 10/16/17 10:54 Dose: 100 mls/hr Sodium Chloride (1/2 Normal Saline) 1,000 mls @ 83 mls/hr IV ASDIR [facility] Metoprolol Succinate (Toprol Xl -) 25 mg PO DAILY [facility] Last Admin: 10/16/17 10:55 Dose: 25 mg Mupirocin (Bactroban Ointment (For Decolonization) -) 1 applic NS BID [facility] Stop: 10/18/17 09:59 Last Admin: 10/16/17 10:55 Dose: 1 applic Oxycodone HCl (Roxicodone -) 5 mg PO Q6H PRN PRN Reason: PAIN LEVEL 6-10 - Objective Vital Signs: Vital Signs Temperature 98.2 F 10/16/17 06:00 Pulse Rate 71 10/16/17 12:00 Respiratory Rate 15 10/16/17 12:00 Blood Pressure 125/73 10/16/17 12:00 O2 Sat by Pulse Oximetry (%) 100 10/16/17 09:00 HENT: Yes: Atraumatic Neck: Yes: Supple Cardiovascular: Yes: Regular Rate and Rhythm Respiratory: Yes: CTA Bilaterally Gastrointestinal: Yes: Normal Bowel Sounds Edema: No Neurological: Yes: Alert, Oriented Labs: CBC, BMP 10/15/17 06:00 10/16/17 05:30 INR, PTT INR 0.99 (0.82-1.09) 10/15/17 06:00 Fibrinogen 429.0 mg/dL (238-498) 10/15/17 06:00 Problem List - Problems (1) CKD (chronic kidney disease) Assessment/Plan: cr still high Code(s): N18.9 - CHRONIC KIDNEY DISEASE, UNSPECIFIED (2) Dementia Assessment/Plan: stable Code(s): F03.90 - UNSPECIFIED DEMENTIA WITHOUT BEHAVIORAL DISTURBANCE (3) HTN (hypertension) Assessment/Plan: on toprol now Code(s): I10 - ESSENTIAL (PRIMARY) HYPERTENSION (4) Thrombocytopenia Assessment/Plan: monitor hematology on board Code(s): D69.6 - THROMBOCYTOPENIA, UNSPECIFIED (5) Superficial laceration of face Code(s): S01.81XA - LACERATION W/O FOREIGN BODY OF OTH PART OF HEAD, INIT ENCNTR (6) Leukocytosis Assessment/Plan: oncology note reviewed Code(s): D72.829 - ELEVATED WHITE BLOOD CELL COUNT, UNSPECIFIED
[2017-10-16] MEDS ORDERED: PT OWN MED DRAWER 7, Y5N ONE ×2 (18:49→21:13)
[2017-10-16] MEDS: SODIUM CHLORIDE 0.45% 1,000 ML IV SCH (18:50)
[2017-10-16] MEDS: CHLORHEXIDINE GLUCONATE 4% CLEANSER FOR DECOLONIZATION TP SCH (21:31)
[2017-10-17] MEDS: PIPERACILLIN/TAZOB 2.25 GM 2.25 GM in DEXTROSE 5%-WATER - 50 ML IVPB SCH ×3 (01:07→17:36)
[2017-10-17] MEDS: CLINDAMYCIN 300 MG PREMIX IVPB 300 MG/50 ML BAG IVPB SCH ×3 (01:07→17:36)
[2017-10-17] MEDS ORDERED: DEXTROSE 5%-WATER - 50 ML IVPB ONE ×2 (08:37→17:29)
[2017-10-17] MEDS ORDERED: PIPERACILLIN/TAZOBACTAM 2.25 GM VIAL IVPB ONE ×2 (08:37→17:29)
[2017-10-17] MEDS ORDERED: PT OWN MED DRAWER 7, Y5N ONE ×3 (08:37→21:38)
[2017-10-17] MEDS: oxyCODONE HCL 5 MG TABLET PO PRN (08:40)
--- NOTE | 2017-10-17 09:21 | PN ---
Progress Note (short form) - Note Progress Note: Patient seen and examined in the ICU. Awake and alert and interactive, but remains confused. Remains off Dopamine drip for hemodynamic support. Denies CP or SOB. OBJECTIVE: Intake & Output 10/14/17 10/15/17 10/16/17 10/17/17 23:59 23:59 23:59 23:59 Intake Total 3493.2 3320 3125 1004 Output Total 1650 1150 3300 700 Balance 1843.2 2170 -175 304 Weight 137 lb 2.04 oz 141 lb 6.4 oz 142 lb 9.6 oz 138 lb 3.2 oz Last Vital Signs Temp Pulse Resp BP Pulse Ox 97.8 F 96 H 18 115/60 100 10/17/17 06:00 10/17/17 08:00 10/17/17 08:00 10/17/17 08:00 10/16/17 21:00 Active Medications Acetaminophen (Tylenol -) 325 mg PO Q6H PRN PRN Reason: PAIN LEVEL 6-10 Chlorhexidine Gluconate (Hibiclens For Decolonization -) 1 applic TP HS [facility] Last Admin: 10/16/17 21:31 Dose: 1 applic Clindamycin Phosphate (Cleocin 300 Mg Premix Ivpb) 300 mg in 50 mls @ 100 mls/ hr IVPB Q8H-IV [facility]; Protocol Last Admin: 10/17/17 01:07 Dose: 100 mls/hr Piperacillin Sod/Tazobactam (Sod 2.25 gm/ Dextrose) 50 mls @ 100 mls/hr IVPB Q8H-IV [facility]; Protocol Last Admin: 10/17/17 01:07 Dose: 100 mls/hr Famotidine/Sodium Chloride (Pepcid 20 Mg Premixed Ivpb -) 20 mg in 50 mls @ 100 mls/hr IVPB BID [facility] Last Admin: 10/16/17 21:31 Dose: 100 mls/hr Sodium Chloride (1/2 Normal Saline) 1,000 mls @ 83 mls/hr IV ASDIR [facility] Last Admin: 10/16/17 18:50 Dose: 83 mls/hr Metoprolol Succinate (Toprol Xl -) 25 mg PO DAILY [facility] Last Admin: 10/16/17 10:55 Dose: 25 mg Mupirocin (Bactroban Ointment (For Decolonization) -) 1 applic NS BID [facility] Stop: 10/18/17 09:59 Last Admin: 10/16/17 21:31 Dose: 1 applic Oxycodone HCl (Roxicodone -) 5 mg PO Q6H PRN PRN Reason: PAIN LEVEL 6-10 Last Admin: 10/17/17 08:40 Dose: 5 mg Gen: NAD at rest, confused Heart: RRR Lung: decreased breath sounds at the bases Abd: soft, nontender Ext: LLE weeping ulcers, ecchymosis ASSESSMENT AND PLAN: Septic Shock Anemia/Thrombocytopenia Suspected Hematologic process Acute Kidney Injury +Troponins - Check labs - ABX Per ID - Local wound care per surgery - IVF - Monitor off pressors - monitor urine output, creatinine - Hematology work up ongoing - Normal transfusion thresholds - Cardiac Telemetry monitoring Dr Lr Critical care time spent in reviewing chart, evaluating patient and formulating plan 35 min
[2017-10-17] MEDS: MUPIROCIN 2% TOPICAL OINTMENT FOR DECOLONIZATION NS SCH ×2 (09:37→22:12)
[2017-10-17] MEDS: FAMOTIDINE 20 MG/50 ML IVPB 20 MG/50 ML MG IVPB SCH ×2 (09:37→22:12)
[2017-10-17] MEDS: metoPROLOL SUCCINATE 25 MG TAB.SR.24H (FP) PO SCH (09:38)
[2017-10-17 10:14] LABS: HEMATOCRIT 32.1 % (35.4-49); HEMOGLOBIN 10.2 GM/dL (11.7-16.9); MCH 31.8 pg (25.7-33.7); MCHC 31.7 g/dl (32.0-35.9); MEAN CELL VOLUME 100.4 fl (80-96); MEAN PLT VOLUME 8.7 fl (7.5-11.1); PLATELET COUNT 58 K/MM3 (134-434); RDW 16.3 % (11.9-15.9)
[2017-10-17 10:38] LABS: ALBUMIN 1.6 g/dl (3.4-5.0); ALK PHOS 229 U/L (45-117); ANION GAP 10 (8-16); BILIRUBIN,TOTAL 1.2 mg/dL (0.2-1.0); BLOOD UREA NITROGEN 61 mg/dL (7-18); CHLORIDE 115 mmol/L (98-107); CO2 22 mmol/L (21-32); CREATININE 2.4 mg/dL (0.7-1.3); GLUCOSE,RANDOM 150 mg/dL (74-106); POTASSIUM 3.8 mmol/L (3.5-5.1); SGOT/AST 44 U/L (15-37); SGPT/ALT 38 U/L (12-78); SODIUM 147 mmol/L (136-145); TOT PROT 6.5 g/dl (6.4-8.2)
[2017-10-17 13:13] LABS: WHITE BLOOD COUNT 73.9 K/mm3 (4.0-10.0)
--- NOTE | 2017-10-17 15:03 | PN ---
Progress Note, Physician History of Present Illness: Pt seen and examined at bedside. He is awake however remains confused. - Current Medication List Current Medications: Active Medications Acetaminophen (Tylenol -) 325 mg PO Q6H PRN PRN Reason: PAIN LEVEL 6-10 Chlorhexidine Gluconate (Hibiclens For Decolonization -) 1 applic TP HS [facility] Last Admin: 10/16/17 21:31 Dose: 1 applic Clindamycin Phosphate (Cleocin 300 Mg Premix Ivpb) 300 mg in 50 mls @ 100 mls/ hr IVPB Q8H-IV [facility]; Protocol Last Admin: 10/17/17 09:37 Dose: 100 mls/hr Piperacillin Sod/Tazobactam (Sod 2.25 gm/ Dextrose) 50 mls @ 100 mls/hr IVPB Q8H-IV [facility]; Protocol Last Admin: 10/17/17 09:37 Dose: 100 mls/hr Famotidine/Sodium Chloride (Pepcid 20 Mg Premixed Ivpb -) 20 mg in 50 mls @ 100 mls/hr IVPB BID [facility] Last Admin: 10/17/17 09:37 Dose: 100 mls/hr Sodium Chloride (1/2 Normal Saline) 1,000 mls @ 83 mls/hr IV ASDIR [facility] Last Admin: 10/16/17 18:50 Dose: 83 mls/hr Metoprolol Succinate (Toprol Xl -) 25 mg PO DAILY [facility] Last Admin: 10/17/17 09:38 Dose: 25 mg Mupirocin (Bactroban Ointment (For Decolonization) -) 1 applic NS BID [facility] Stop: 10/18/17 09:59 Last Admin: 10/17/17 09:37 Dose: 1 applic Oxycodone HCl (Roxicodone -) 5 mg PO Q6H PRN PRN Reason: PAIN LEVEL 6-10 Last Admin: 10/17/17 08:40 Dose: 5 mg - Objective Vital Signs: Vital Signs Temperature 98.2 F 10/17/17 14:00 Pulse Rate 102 H 10/17/17 14:00 Respiratory Rate 18 10/17/17 14:00 Blood Pressure 104/82 10/17/17 14:00 O2 Sat by Pulse Oximetry (%) 100 10/16/17 21:00 Constitutional: Yes: Calm Eyes: Yes: Conjunctiva Clear HENT: Yes: Atraumatic Cardiovascular: Yes: S1, S2 Respiratory: Yes: CTA Bilaterally Gastrointestinal: Yes: Soft Genitourinary: Yes: Lopez Present Musculoskeletal: Yes: Muscle Weakness Edema: Yes Edema: LLE: Trace, RLE: Trace Neurological: Yes: Confusion Labs: CBC, BMP 10/17/17 10:00 10/17/17 10:00 INR, PTT INR 0.99 (0.82-1.09) 10/15/17 06:00 Fibrinogen 429.0 mg/dL (238-498) 10/15/17 06:00 Problem List - Problems (1) CKD (chronic kidney disease) Code(s): N18.9 - CHRONIC KIDNEY DISEASE, UNSPECIFIED (2) Dementia Code(s): F03.90 - UNSPECIFIED DEMENTIA WITHOUT BEHAVIORAL DISTURBANCE (3) Fall Code(s): W19.XXXA - UNSPECIFIED FALL, INITIAL ENCOUNTER Qualifiers: Encounter type: initial encounter Qualified Code(s): W19.XXXA - Unspecified fall, initial encounter (4) HTN (hypertension) Code(s): I10 - ESSENTIAL (PRIMARY) HYPERTENSION (5) Thrombocytopenia Code(s): D69.6 - THROMBOCYTOPENIA, UNSPECIFIED Assessment/Plan Current Medications Generic Name Dose Route Start Last Admin Trade Name Freq PRN Reason Stop Dose Admin Acetaminophen 325 mg 10/13/17 14:07 Tylenol - PO Q6H PRN PAIN LEVEL 6-10 Chlorhexidine Gluconate 1 applic 10/13/17 22:00 10/16/17 21:31 Hibiclens For Decolonization - TP 1 applic HS [facility] Administration Clindamycin Phosphate 300 mg in 50 mls @ 100 mls/hr 10/12/17 13:00 10/17/17 09:37 Cleocin 300 Mg Premix Ivpb IVPB 100 mls/hr Q8H-IV [facility] Administration Protocol Piperacillin Sod/Tazobactam 50 mls @ 100 mls/hr 10/12/17 13:00 10/17/17 09:37 Sod 2.25 gm/ Dextrose IVPB 100 mls/hr Q8H-IV [facility] Administration Protocol Famotidine/Sodium Chloride 20 mg in 50 mls @ 100 mls/hr 10/14/17 10:00 09:37 Pepcid 20 Mg Premixed Ivpb - IVPB 100 mls/hr BID [facility] Administration Sodium Chloride 1,000 mls @ 83 mls/hr 10/16/17 15:15 10/16/17 18:50 1/2 Normal Saline IV 83 mls/hr ASDIR [facility] Administration Metoprolol Succinate 25 mg 10/12/17 10:00 10/17/17 09:38 Toprol Xl - PO 25 mg DAILY [facility] Administration Mupirocin 1 applic 10/13/17 10:00 10/17/17 09:37 Bactroban Ointment (For Decolonization) - NS 10/18/17 09:59 1 applic BID [facility] Administration Oxycodone HCl 5 mg 10/13/17 14:07 10/17/17 08:40 Roxicodone - PO 5 mg Q6H PRN Administration PAIN LEVEL 6-10 Impression 1. JOHANA 2. s/p fall 3. thrombocytopenia 4. HTN 5. leukocytosis 6. anemia 7. sepsis 8. r/o lymphoproliferative disorder 9. hypernatremia Plan - fluids changed to hypptonic last night, cont with 1/2 ns and if sodium does not improve then change to d5w - oncology follow up as wbc is rising - monitor renal function - pt remains off of pressors - johana likely from sepsis and hypotension
--- NOTE | 2017-10-17 16:29 | PN ---
Progress Note, Physician History of Present Illness: comfortable - Current Medication List Current Medications: Active Medications Acetaminophen (Tylenol -) 325 mg PO Q6H PRN PRN Reason: PAIN LEVEL 6-10 Chlorhexidine Gluconate (Hibiclens For Decolonization -) 1 applic TP HS [facility] Last Admin: 10/16/17 21:31 Dose: 1 applic Clindamycin Phosphate (Cleocin 300 Mg Premix Ivpb) 300 mg in 50 mls @ 100 mls/ hr IVPB Q8H-IV [facility]; Protocol Last Admin: 10/17/17 09:37 Dose: 100 mls/hr Piperacillin Sod/Tazobactam (Sod 2.25 gm/ Dextrose) 50 mls @ 100 mls/hr IVPB Q8H-IV [facility]; Protocol Last Admin: 10/17/17 09:37 Dose: 100 mls/hr Famotidine/Sodium Chloride (Pepcid 20 Mg Premixed Ivpb -) 20 mg in 50 mls @ 100 mls/hr IVPB BID [facility] Last Admin: 10/17/17 09:37 Dose: 100 mls/hr Sodium Chloride (1/2 Normal Saline) 1,000 mls @ 83 mls/hr IV ASDIR [facility] Last Admin: 10/16/17 18:50 Dose: 83 mls/hr Metoprolol Succinate (Toprol Xl -) 25 mg PO DAILY [facility] Last Admin: 10/17/17 09:38 Dose: 25 mg Mupirocin (Bactroban Ointment (For Decolonization) -) 1 applic NS BID [facility] Stop: 10/18/17 09:59 Last Admin: 10/17/17 09:37 Dose: 1 applic Oxycodone HCl (Roxicodone -) 5 mg PO Q6H PRN PRN Reason: PAIN LEVEL 6-10 Last Admin: 10/17/17 08:40 Dose: 5 mg - Objective Vital Signs: Vital Signs Temperature 98.2 F 10/17/17 14:00 Pulse Rate 102 H 10/17/17 14:00 Respiratory Rate 18 10/17/17 14:00 Blood Pressure 104/82 10/17/17 14:00 O2 Sat by Pulse Oximetry (%) 100 10/16/17 21:00 Constitutional: Yes: No Distress HENT: Yes: Atraumatic Neck: Yes: Supple Cardiovascular: Yes: Regular Rate and Rhythm Respiratory: Yes: CTA Bilaterally Gastrointestinal: Yes: Normal Bowel Sounds Extremities: Yes: WNL Neurological: Yes: Alert Labs: CBC, BMP 10/17/17 10:00 10/17/17 10:00 INR, PTT INR 0.99 (0.82-1.09) 10/15/17 06:00 Fibrinogen 429.0 mg/dL (238-498) 10/15/17 06:00 Problem List - Problems (1) CKD (chronic kidney disease) Assessment/Plan: cr still high Code(s): N18.9 - CHRONIC KIDNEY DISEASE, UNSPECIFIED (2) Dementia Assessment/Plan: stable Code(s): F03.90 - UNSPECIFIED DEMENTIA WITHOUT BEHAVIORAL DISTURBANCE (3) HTN (hypertension) Assessment/Plan: on toprol now Code(s): I10 - ESSENTIAL (PRIMARY) HYPERTENSION (4) Thrombocytopenia Code(s): D69.6 - THROMBOCYTOPENIA, UNSPECIFIED (5) Superficial laceration of face Code(s): S01.81XA - LACERATION W/O FOREIGN BODY OF OTH PART OF HEAD, INIT ENCNTR (6) Leukocytosis Assessment/Plan: oncology note reviewed lymphoma ? pt for snf/hospice Code(s): D72.829 - ELEVATED WHITE BLOOD CELL COUNT, UNSPECIFIED
--- NOTE | 2017-10-17 16:45 | PN ---
Progress Note, Physician History of Present Illness: Pt remains fully alert and responsive, confused. He is afebrile. Denies resp distress/cough/abd pain. +loose stool x 1 today. - Current Medication List Current Medications: Active Medications Acetaminophen (Tylenol -) 325 mg PO Q6H PRN PRN Reason: PAIN LEVEL 6-10 Chlorhexidine Gluconate (Hibiclens For Decolonization -) 1 applic TP HS [facility] Last Admin: 10/16/17 21:31 Dose: 1 applic Clindamycin Phosphate (Cleocin 300 Mg Premix Ivpb) 300 mg in 50 mls @ 100 mls/ hr IVPB Q8H-IV [facility]; Protocol Last Admin: 10/17/17 09:37 Dose: 100 mls/hr Piperacillin Sod/Tazobactam (Sod 2.25 gm/ Dextrose) 50 mls @ 100 mls/hr IVPB Q8H-IV [facility]; Protocol Last Admin: 10/17/17 09:37 Dose: 100 mls/hr Famotidine/Sodium Chloride (Pepcid 20 Mg Premixed Ivpb -) 20 mg in 50 mls @ 100 mls/hr IVPB BID [facility] Last Admin: 10/17/17 09:37 Dose: 100 mls/hr Sodium Chloride (1/2 Normal Saline) 1,000 mls @ 83 mls/hr IV ASDIR [facility] Last Admin: 10/16/17 18:50 Dose: 83 mls/hr Metoprolol Succinate (Toprol Xl -) 25 mg PO DAILY [facility] Last Admin: 10/17/17 09:38 Dose: 25 mg Mupirocin (Bactroban Ointment (For Decolonization) -) 1 applic NS BID [facility] Stop: 10/18/17 09:59 Last Admin: 10/17/17 09:37 Dose: 1 applic Oxycodone HCl (Roxicodone -) 5 mg PO Q6H PRN PRN Reason: PAIN LEVEL 6-10 Last Admin: 10/17/17 08:40 Dose: 5 mg - Objective Vital Signs: Vital Signs Temperature 98.2 F 10/17/17 14:00 Pulse Rate 102 H 10/17/17 14:00 Respiratory Rate 18 10/17/17 14:00 Blood Pressure 104/82 10/17/17 14:00 O2 Sat by Pulse Oximetry (%) 100 10/16/17 21:00 Constitutional: Yes: No Distress, Calm Neck: Yes: Supple Cardiovascular: Yes: Tachycardia Respiratory: Yes: Regular Gastrointestinal: Yes: Normal Bowel Sounds, Soft Extremities: Yes: Erythema (LLE erythema/edema, ulcers with serous drainage, + tenderness) Edema: Yes Edema: LLE: 2+ Neurological: Yes: Alert, Confusion Labs: CBC, BMP 10/17/17 10:00 10/17/17 10:00 INR, PTT INR 0.99 (0.82-1.09) 10/15/17 06:00 Fibrinogen 429.0 mg/dL (238-498) 10/15/17 06:00 Problem List - Problems (1) Dementia Code(s): F03.90 - UNSPECIFIED DEMENTIA WITHOUT BEHAVIORAL DISTURBANCE (2) Fall Code(s): W19.XXXA - UNSPECIFIED FALL, INITIAL ENCOUNTER Qualifiers: Encounter type: initial encounter Qualified Code(s): W19.XXXA - Unspecified fall, initial encounter (3) HTN (hypertension) Code(s): I10 - ESSENTIAL (PRIMARY) HYPERTENSION (4) Leukocytosis Code(s): D72.829 - ELEVATED WHITE BLOOD CELL COUNT, UNSPECIFIED (5) Thrombocytopenia Code(s): D69.6 - THROMBOCYTOPENIA, UNSPECIFIED Assessment/Plan 82 y.o. male admitted s/p fall s/p Septic Shock - off vasopressors Leukocytosis/Thrombocytopenia Acute Kidney Injury +Troponins LLE cellulitis/ulcers - still with erythema Loose BM today x 1 -- wbc remains elevated,rising. hematology evaluation -- cont. current antibiotics for now -- stool for CDT, repeat blood cultures -- continue monitor vitals, cbc/bmp -- continue dressing changes cc: time 35 min
[2017-10-17] MEDS: SODIUM CHLORIDE 0.45% 1,000 ML IV SCH (17:03)
[2017-10-17] MEDS: CHLORHEXIDINE GLUCONATE 4% CLEANSER FOR DECOLONIZATION TP SCH (22:12)
[2017-10-18] MEDS ORDERED: PIPERACILLIN/TAZOBACTAM 2.25 GM VIAL IVPB ONE ×2 (00:34→08:54)
[2017-10-18] MEDS ORDERED: DEXTROSE 5%-WATER - 50 ML IVPB ONE ×2 (00:34→08:54)
[2017-10-18] MEDS: CLINDAMYCIN 300 MG PREMIX IVPB 300 MG/50 ML BAG IVPB SCH ×3 (02:03→17:27)
[2017-10-18] MEDS: PIPERACILLIN/TAZOB 2.25 GM 2.25 GM in DEXTROSE 5%-WATER - 50 ML IVPB SCH ×2 (02:03→09:09)
[2017-10-18 06:43] LABS: HEMATOCRIT 29.5 % (35.4-49); HEMOGLOBIN 9.3 GM/dL (11.7-16.9); MCH 31.6 pg (25.7-33.7); MCHC 31.7 g/dl (32.0-35.9); MEAN CELL VOLUME 99.8 fl (80-96); MEAN PLT VOLUME 9.3 fl (7.5-11.1); PLATELET COUNT 70 K/MM3 (134-434); RBC 2.96 M/mm3 (4.00-5.60); RDW 15.8 % (11.9-15.9)
[2017-10-18 07:08] LABS: ALBUMIN 1.5 g/dl (3.4-5.0); ANION GAP 9 (8-16); BLOOD UREA NITROGEN 62 mg/dL (7-18); CHLORIDE 116 mmol/L (98-107); CO2 21 mmol/L (21-32); GLUCOSE,RANDOM 102 mg/dL (74-106); POTASSIUM 3.4 mmol/L (3.5-5.1); SODIUM 146 mmol/L (136-145)
[2017-10-18 07:10] LABS: WHITE BLOOD COUNT 87.6 K/mm3 (4.0-10.0)
[2017-10-18 07:38] LABS: ALK PHOS 174 U/L (45-117); BILIRUBIN,TOTAL 1.2 mg/dL (0.2-1.0); CALCIUM 7.8 mg/dL (8.5-10.1); CREATININE 2.2 mg/dL (0.7-1.3); SGOT/AST 29 U/L (15-37); SGPT/ALT 32 U/L (12-78); TOT PROT 5.9 g/dl (6.4-8.2)
[2017-10-18] MEDS: DEXTROSE 5%-WATER - 1,000 ML IV SCH (08:46)
[2017-10-18] MEDS: FAMOTIDINE 20 MG/50 ML IVPB 20 MG/50 ML MG IVPB SCH ×2 (09:08→21:47)
[2017-10-18] MEDS: metoPROLOL SUCCINATE 25 MG TAB.SR.24H (FP) PO SCH (09:08)
[2017-10-18] MEDS: oxyCODONE HCL 5 MG TABLET PO PRN (09:08)
[2017-10-18 10:09] LABS: ANTIGLOMERULAR BASEMENT MEN.AB 5 units (0-20)
--- NOTE | 2017-10-18 11:15 | PN ---
Progress Note (short form) - Note Progress Note: PULMONARY Denies shortness of breath or chest pain. No abdominal pain, nausea or vomiting. Tolerating PO. Vital Signs Period Temp Pulse Resp BP Sys/Hammond Pulse Ox Last 24 Hr 97.7 F-98.8 F 80-114 16-19 104-145/60-85 100 Intake & Output 10/15/17 10/16/17 10/17/17 10/18/17 23:59 23:59 23:59 23:59 Intake Total 3320 3125 2354 996 Output Total 1150 3300 1300 750 Balance 2170 -175 1054 246 Weight 64.138 kg 64.682 kg 62.686 kg 64.4 kg Gen: NAD at rest Heart: RRR Lung: decreased breath sounds at the bases Abd: soft, nontender Ext: LLE skin ulcerations CBC, BMP 10/18/17 05:30 10/18/17 05:30 Active Medications Acetaminophen (Tylenol -) 325 mg PO Q6H PRN PRN Reason: PAIN LEVEL 6-10 Dextrose (D5w -) 1,000 mls @ 83 mls/hr IV Q12H [facility] Last Admin: 10/18/17 08:46 Dose: 83 mls/hr Clindamycin Phosphate (Cleocin 300 Mg Premix Ivpb) 300 mg in 50 mls @ 100 mls/ hr IVPB Q8H-IV [facility]; Protocol Famotidine/Sodium Chloride (Pepcid 20 Mg Premixed Ivpb -) 20 mg in 50 mls @ 100 mls/hr IVPB BID [facility] Piperacillin Sod/Tazobactam (Sod 2.25 gm/ Dextrose) 50 mls @ 100 mls/hr IVPB Q8H-IV [facility]; Protocol Metoprolol Succinate (Toprol Xl -) 25 mg PO DAILY [facility] Oxycodone HCl (Roxicodone -) 5 mg PO Q6H PRN PRN Reason: PAIN LEVEL 6-10 A/P Shock of unclear etiology resolved r/o Blood Dyscrasias Acute on Chronic Renal Failure +Troponins - complete antibiotics - monitor urine output, creatinine - hematology f/u - PO as tolerated - DVT prophylaxis - can monitor on floor
--- NOTE | 2017-10-18 12:34 | PN ---
Progress Note, Physician History of Present Illness: patient stable no new issues wbc keeps on climbing - Current Medication List Current Medications: Active Medications Acetaminophen (Tylenol -) 325 mg PO Q6H PRN PRN Reason: PAIN LEVEL 6-10 Dextrose (D5w -) 1,000 mls @ 83 mls/hr IV Q12H [facility] Last Admin: 10/18/17 08:46 Dose: 83 mls/hr Clindamycin Phosphate (Cleocin 300 Mg Premix Ivpb) 300 mg in 50 mls @ 100 mls/ hr IVPB Q8H-IV [facility]; Protocol Famotidine/Sodium Chloride (Pepcid 20 Mg Premixed Ivpb -) 20 mg in 50 mls @ 100 mls/hr IVPB BID [facility] Metoprolol Succinate (Toprol Xl -) 25 mg PO DAILY [facility] Oxycodone HCl (Roxicodone -) 5 mg PO Q6H PRN PRN Reason: PAIN LEVEL 6-10 - Objective Vital Signs: Vital Signs Temperature 97.7 F 10/18/17 10:50 Pulse Rate 86 10/18/17 10:50 Respiratory Rate 16 10/18/17 10:50 Blood Pressure 112/60 10/18/17 10:50 O2 Sat by Pulse Oximetry (%) 100 10/17/17 20:41 Constitutional: Yes: No Distress, Calm Cardiovascular: Yes: Regular Rate and Rhythm Respiratory: Yes: Regular, CTA Bilaterally Gastrointestinal: Yes: Normal Bowel Sounds, Soft Musculoskeletal: Yes: WNL Extremities: Yes: WNL Neurological: Yes: Alert Psychiatric: Yes: Alert Labs: CBC, BMP 10/18/17 05:30 10/18/17 05:30 INR, PTT INR 0.99 (0.82-1.09) 10/15/17 06:00 Fibrinogen 429.0 mg/dL (238-498) 10/15/17 06:00 Assessment/Plan Problem List - Problems (1) CKD (chronic kidney disease) Code(s): N18.9 - CHRONIC KIDNEY DISEASE, UNSPECIFIED (2) Dementia Code(s): F03.90 - UNSPECIFIED DEMENTIA WITHOUT BEHAVIORAL DISTURBANCE (3) Fall Code(s): W19.XXXA - UNSPECIFIED FALL, INITIAL ENCOUNTER Qualifiers: Encounter type: initial encounter Qualified Code(s): W19.XXXA - Unspecified fall, initial encounter (4) HTN (hypertension) Code(s): I10 - ESSENTIAL (PRIMARY) HYPERTENSION (5) Thrombocytopenia Code(s): D69.6 - THROMBOCYTOPENIA, UNSPECIFIED Septic Shock R/O TTP Acute Kidney Injury +Troponins plan will stop abx will continue current mgmt oncology to evaluate if this is lymphoma or anything else rest as per the team
--- NOTE | 2017-10-18 13:36 | PN ---
Progress Note, Physician History of Present Illness: Pt seen and examined at bedside. He is now in the medical [facility]. He denies shortness of breath. - Current Medication List Current Medications: Active Medications Acetaminophen (Tylenol -) 325 mg PO Q6H PRN PRN Reason: PAIN LEVEL 6-10 Dextrose (D5w -) 1,000 mls @ 83 mls/hr IV Q12H [facility] Last Admin: 10/18/17 08:46 Dose: 83 mls/hr Clindamycin Phosphate (Cleocin 300 Mg Premix Ivpb) 300 mg in 50 mls @ 100 mls/ hr IVPB Q8H-IV [facility]; Protocol Famotidine/Sodium Chloride (Pepcid 20 Mg Premixed Ivpb -) 20 mg in 50 mls @ 100 mls/hr IVPB BID [facility] Metoprolol Succinate (Toprol Xl -) 25 mg PO DAILY [facility] Oxycodone HCl (Roxicodone -) 5 mg PO Q6H PRN PRN Reason: PAIN LEVEL 6-10 - Objective Vital Signs: Vital Signs Temperature 97.7 F 10/18/17 10:50 Pulse Rate 86 10/18/17 10:50 Respiratory Rate 16 10/18/17 10:50 Blood Pressure 112/60 10/18/17 10:50 O2 Sat by Pulse Oximetry (%) 100 10/17/17 20:41 Constitutional: Yes: Calm Eyes: Yes: Conjunctiva Clear HENT: Yes: Atraumatic Neck: Yes: Supple Cardiovascular: Yes: S1, S2 Respiratory: Yes: CTA Bilaterally Gastrointestinal: Yes: Soft Genitourinary: Yes: Lopez Present Musculoskeletal: Yes: Muscle Weakness Edema: No Neurological: Yes: Confusion Labs: CBC, BMP 10/18/17 05:30 10/18/17 05:30 INR, PTT INR 0.99 (0.82-1.09) 10/15/17 06:00 Fibrinogen 429.0 mg/dL (238-498) 10/15/17 06:00 Problem List - Problems (1) CKD (chronic kidney disease) Code(s): N18.9 - CHRONIC KIDNEY DISEASE, UNSPECIFIED (2) Dementia Code(s): F03.90 - UNSPECIFIED DEMENTIA WITHOUT BEHAVIORAL DISTURBANCE (3) Fall Code(s): W19.XXXA - UNSPECIFIED FALL, INITIAL ENCOUNTER Qualifiers: Encounter type: initial encounter Qualified Code(s): W19.XXXA - Unspecified fall, initial encounter (4) HTN (hypertension) Code(s): I10 - ESSENTIAL (PRIMARY) HYPERTENSION (5) Thrombocytopenia Code(s): D69.6 - THROMBOCYTOPENIA, UNSPECIFIED Assessment/Plan Current Medications Generic Name Dose Route Start Last Admin Trade Name Freq PRN Reason Stop Dose Admin Acetaminophen 325 mg 10/18/17 10:25 Tylenol - PO Q6H PRN PAIN LEVEL 6-10 Dextrose 1,000 mls @ 83 mls/hr 10/18/17 08:45 10/18/17 08:46 D5w - IV 83 mls/hr Q12H [facility]IDA Administration Clindamycin Phosphate 300 mg in 50 mls @ 100 mls/hr 10/18/17 18:00 Cleocin 300 Mg Premix Ivpb IVPB Q8H-IV [facility]IAD Protocol Famotidine/Sodium Chloride 20 mg in 50 mls @ 100 mls/hr 10/18/17 22:00 Pepcid 20 Mg Premixed Ivpb - IVPB BID [facility] Metoprolol Succinate 25 mg 10/19/17 10:00 Toprol Xl - PO DAILY [facility] Oxycodone HCl 5 mg 10/18/17 10:25 Roxicodone - PO Q6H PRN PAIN LEVEL 6-10 Laboratory Tests 10/14/17 05:30 KRYS Screen Negative c-ANCA Pending Proteinase 3 (PR3) Pending p-ANCA Pending Atypical p-ANCA Pending Myeloperoxidase Ab Pending Double Strand DNA Ab <1 Glomerular Base Memb Ab 5 Impression 1. SHILA 2. s/p fall 3. thrombocytopenia 4. HTN 5. leukocytosis 6. anemia 7. sepsis 8. r/o lymphoproliferative disorder 9. hypernatremia Plan - agree with d5w - monitor sodium - replace potassium - repeat labs in am - hematology follow up as wbc is rising - monitor renal function - pt remains off of pressors - shila likely from sepsis and hypotension - renal workup is in progress
[2017-10-18] MEDS ORDERED: POTASSIUM CHLORIDE TABS 20 MEQ TABLET.ER (FP) PO ONE (14:30)
[2017-10-18 14:53] VITALS: BMI 20.8
--- NOTE | 2017-10-18 17:53 | PN ---
Progress Note (short form) - Note Progress Note: PAtient seen and examined c/o pain in his legs Last Vital Signs Temp Pulse Resp BP Pulse Ox 98.1 F 81 18 112/56 100 10/18/17 16:09 10/18/17 16:09 10/18/17 16:09 10/18/17 16:09 10/17/17 20:41 Cor: RSR, No murmurs, No gallops Lungs: Clear to P&A Abd: Soft, Normal bowel sounds, No organomegaly Ext:No significant edema Abnormal Lab Results 10/18/17 10/18/17 05:30 05:30 WBC 87.6 H* RBC 2.96 L Hgb 9.3 L Hct 29.5 L MCV 99.8 H MCHC 31.7 L Plt Count 70 L D Sodium 146 H Potassium 3.4 L Chloride 116 H BUN 62 H Creatinine 2.2 H Calcium 7.8 L Total Bilirubin 1.2 H Alkaline Phosphatase 174 H D Total Protein 5.9 L Albumin 1.5 L Active Medications Acetaminophen (Tylenol -) 325 mg PO Q6H PRN PRN Reason: PAIN LEVEL 6-10 Dextrose (D5w -) 1,000 mls @ 83 mls/hr IV Q12H [facility] Last Admin: 10/18/17 08:46 Dose: 83 mls/hr Clindamycin Phosphate (Cleocin 300 Mg Premix Ivpb) 300 mg in 50 mls @ 100 mls/ hr IVPB Q8H-IV DAVIDA; Protocol Last Admin: 10/18/17 17:27 Dose: 100 mls/hr Famotidine/Sodium Chloride (Pepcid 20 Mg Premixed Ivpb -) 20 mg in 50 mls @ 100 mls/hr IVPB BID DAVIDA Metoprolol Succinate (Toprol Xl -) 25 mg PO DAILY DAVIDA Oxycodone HCl (Roxicodone -) 5 mg PO Q6H PRN PRN Reason: PAIN LEVEL 6-10 A/P 82 y/o patient with septic shock, JOHANA, severe dementia Leukocytosis/thrombocytopenia secondary to lymphoproliferative disorder--? 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
[2017-10-18] MEDS ORDERED: PIPERACILLIN/TAZOB 2.25 GM 2.25 GM in DEXTROSE 5%-WATER - 50 ML IVPB SCH (18:00)
--- NOTE | 2017-10-18 19:07 | PN ---
Progress Note, Physician History of Present Illness: comfortable - Current Medication List Current Medications: Active Medications Acetaminophen (Tylenol -) 325 mg PO Q6H PRN PRN Reason: PAIN LEVEL 6-10 Dextrose (D5w -) 1,000 mls @ 83 mls/hr IV Q12H [facility] Last Admin: 10/18/17 08:46 Dose: 83 mls/hr Clindamycin Phosphate (Cleocin 300 Mg Premix Ivpb) 300 mg in 50 mls @ 100 mls/ hr IVPB Q8H-IV [facility]; Protocol Last Admin: 10/18/17 17:27 Dose: 100 mls/hr Famotidine/Sodium Chloride (Pepcid 20 Mg Premixed Ivpb -) 20 mg in 50 mls @ 100 mls/hr IVPB BID [facility] Metoprolol Succinate (Toprol Xl -) 25 mg PO DAILY [facility] Oxycodone HCl (Roxicodone -) 5 mg PO Q6H PRN PRN Reason: PAIN LEVEL 6-10 Tamsulosin HCl (Flomax -) 0.4 mg PO DAILY@0830 [facility] - Objective Vital Signs: Vital Signs Temperature 98.1 F 10/18/17 16:09 Pulse Rate 81 10/18/17 16:09 Respiratory Rate 18 10/18/17 16:09 Blood Pressure 112/56 10/18/17 16:09 O2 Sat by Pulse Oximetry (%) 100 10/17/17 20:41 Constitutional: Yes: No Distress HENT: Yes: Atraumatic Neck: Yes: Supple Cardiovascular: Yes: Regular Rate and Rhythm Respiratory: Yes: Rhonchi Gastrointestinal: Yes: Normal Bowel Sounds Extremities: Yes: WNL Edema: No Labs: CBC, BMP 10/18/17 05:30 10/18/17 05:30 INR, PTT INR 0.99 (0.82-1.09) 10/15/17 06:00 Fibrinogen 429.0 mg/dL (238-498) 10/15/17 06:00 Problem List - Problems (1) CKD (chronic kidney disease) Assessment/Plan: cr still high ivf nephro on board Code(s): N18.9 - CHRONIC KIDNEY DISEASE, UNSPECIFIED (2) Dementia Assessment/Plan: stable Code(s): F03.90 - UNSPECIFIED DEMENTIA WITHOUT BEHAVIORAL DISTURBANCE (3) HTN (hypertension) Assessment/Plan: on toprol now Code(s): I10 - ESSENTIAL (PRIMARY) HYPERTENSION (4) Thrombocytopenia Code(s): D69.6 - THROMBOCYTOPENIA, UNSPECIFIED (5) Superficial laceration of face Code(s): S01.81XA - LACERATION W/O FOREIGN BODY OF OTH PART OF HEAD, INIT ENCNTR (6) Leukocytosis Assessment/Plan: oncology note reviewed lymphoma ? pt for snf/hospice Code(s): D72.829 - ELEVATED WHITE BLOOD CELL COUNT, UNSPECIFIED (7) Scrotal edema Assessment/Plan: not new has been there since admission has conner in, on flomax Code(s): N50.89 - OTHER SPECIFIED DISORDERS OF THE MALE GENITAL ORGANS Assessment/Plan d/w son mr anirudh herndon willtalk to hematology, he wants snf placement
[2017-10-18] MEDS: TAMSULOSIN HCL 0.4 MG CAP.ER.24H (FP) PO SCH (19:15)
[2017-10-19] MEDS: DEXTROSE 5%-WATER - 1,000 ML IV SCH ×4 (00:42→22:14)
[2017-10-19] MEDS: CLINDAMYCIN 300 MG PREMIX IVPB 300 MG/50 ML BAG IVPB SCH ×2 (02:07→12:34)
[2017-10-19] MEDS: oxyCODONE HCL 5 MG TABLET PO PRN (08:28)
[2017-10-19] MEDS: TAMSULOSIN HCL 0.4 MG CAP.ER.24H (FP) PO SCH (08:28)
[2017-10-19] MEDS: ACETAMINOPHEN 325 MG TABLET (FP) PO PRN (08:29)
[2017-10-19 08:35] LABS: ALBUMIN 1.4 g/dl (3.4-5.0); ALK PHOS 182 U/L (45-117); ANION GAP 10 (8-16); BILIRUBIN,TOTAL 0.9 mg/dL (0.2-1.0); BLOOD UREA NITROGEN 62 mg/dL (7-18); CALCIUM 7.2 mg/dL (8.5-10.1); CHLORIDE 111 mmol/L (98-107); CO2 23 mmol/L (21-32); CREATININE 2.2 mg/dL (0.7-1.3); GLUCOSE,RANDOM 114 mg/dL (74-106); MAGNESIUM 2.3 mg/dL (1.8-2.4); POTASSIUM 3.5 mmol/L (3.5-5.1); SGOT/AST 28 U/L (15-37); SGPT/ALT 31 U/L (12-78); SODIUM 144 mmol/L (136-145); TOT PROT 5.8 g/dl (6.4-8.2)
[2017-10-19] MEDS: FAMOTIDINE 20 MG/50 ML IVPB 20 MG/50 ML MG IVPB SCH ×2 (10:32→22:00)
[2017-10-19] MEDS: metoPROLOL SUCCINATE 25 MG TAB.SR.24H (FP) PO SCH (10:32)
[2017-10-19 14:17] LABS: ATYPICAL pANCA <1:20 titer (Neg:<1:20); C-ANCA <1:20 titer (Neg:<1:20); P-ANCA <1:20 titer (Neg:<1:20); PROTEINASE-3 ANTIBODY <3.5 U/mL (0.0-3.5)
--- NOTE | 2017-10-19 14:50 | PN ---
Progress Note, Physician History of Present Illness: patient stable no new issues continues to be confused - Current Medication List Current Medications: Active Medications Acetaminophen (Tylenol -) 325 mg PO Q6H PRN PRN Reason: PAIN LEVEL 6-10 Last Admin: 10/19/17 08:29 Dose: 325 mg Dextrose (D5w -) 1,000 mls @ 83 mls/hr IV Q12H [facility] Last Admin: 10/19/17 14:12 Dose: 83 mls/hr Clindamycin Phosphate (Cleocin 300 Mg Premix Ivpb) 300 mg in 50 mls @ 100 mls/ hr IVPB Q8H-IV [facility]; Protocol Last Admin: 10/19/17 12:34 Dose: 100 mls/hr Famotidine/Sodium Chloride (Pepcid 20 Mg Premixed Ivpb -) 20 mg in 50 mls @ 100 mls/hr IVPB BID [facility] Last Admin: 10/19/17 10:32 Dose: 100 mls/hr Metoprolol Succinate (Toprol Xl -) 25 mg PO DAILY [facility] Last Admin: 10/19/17 10:32 Dose: 25 mg Oxycodone HCl (Roxicodone -) 5 mg PO Q6H PRN PRN Reason: PAIN LEVEL 6-10 Last Admin: 10/19/17 08:28 Dose: 5 mg Tamsulosin HCl (Flomax -) 0.4 mg PO DAILY@0830 [facility] Last Admin: 10/19/17 08:28 Dose: 0.4 mg - Objective Vital Signs: Vital Signs Temperature 97.5 F L 10/19/17 13:50 Pulse Rate 81 10/19/17 13:50 Respiratory Rate 17 10/19/17 13:50 Blood Pressure 99/57 10/19/17 13:50 O2 Sat by Pulse Oximetry (%) 98 10/18/17 21:00 Constitutional: Yes: No Distress, Calm Cardiovascular: Yes: Regular Rate and Rhythm Respiratory: Yes: Regular, CTA Bilaterally Gastrointestinal: Yes: Normal Bowel Sounds, Soft Genitourinary: Yes: Lopez Present, Scrotal Edema Musculoskeletal: Yes: Other Extremities: Yes: Other Edema: LLE: 1+, RLE: 1+ Integumentary: Yes: Other Neurological: Yes: Alert Psychiatric: Yes: Alert Labs: CBC, BMP 10/18/17 05:30 10/19/17 06:45 INR, PTT INR 0.99 (0.82-1.09) 10/15/17 06:00 Fibrinogen 429.0 mg/dL (238-498) 10/15/17 06:00 Assessment/Plan Problem List - Problems (1) CKD (chronic kidney disease) Code(s): N18.9 - CHRONIC KIDNEY DISEASE, UNSPECIFIED (2) Dementia Code(s): F03.90 - UNSPECIFIED DEMENTIA WITHOUT BEHAVIORAL DISTURBANCE (3) Fall Code(s): W19.XXXA - UNSPECIFIED FALL, INITIAL ENCOUNTER Qualifiers: Encounter type: initial encounter Qualified Code(s): W19.XXXA - Unspecified fall, initial encounter (4) HTN (hypertension) Code(s): I10 - ESSENTIAL (PRIMARY) HYPERTENSION (5) Thrombocytopenia Code(s): D69.6 - THROMBOCYTOPENIA, UNSPECIFIED Septic Shock R/O TTP Acute Kidney Injury +Troponins plan continue to monitor off of abx will continue current mgmt monitor wbc rest as per the team
--- NOTE | 2017-10-19 15:30 | PN ---
Progress Note, Physician History of Present Illness: Pt seen and examined at bedside. No great change. - Current Medication List Current Medications: Active Medications Acetaminophen (Tylenol -) 325 mg PO Q6H PRN PRN Reason: PAIN LEVEL 6-10 Last Admin: 10/19/17 08:29 Dose: 325 mg Dextrose (D5w -) 1,000 mls @ 83 mls/hr IV Q12H [facility] Last Admin: 10/19/17 14:12 Dose: 83 mls/hr Famotidine/Sodium Chloride (Pepcid 20 Mg Premixed Ivpb -) 20 mg in 50 mls @ 100 mls/hr IVPB BID [facility] Last Admin: 10/19/17 10:32 Dose: 100 mls/hr Metoprolol Succinate (Toprol Xl -) 25 mg PO DAILY [facility] Last Admin: 10/19/17 10:32 Dose: 25 mg Oxycodone HCl (Roxicodone -) 5 mg PO Q6H PRN PRN Reason: PAIN LEVEL 6-10 Last Admin: 10/19/17 08:28 Dose: 5 mg Tamsulosin HCl (Flomax -) 0.4 mg PO DAILY@0830 [facility] Last Admin: 10/19/17 08:28 Dose: 0.4 mg - Objective Vital Signs: Vital Signs Temperature 97.5 F L 10/19/17 13:50 Pulse Rate 81 10/19/17 13:50 Respiratory Rate 17 10/19/17 13:50 Blood Pressure 99/57 10/19/17 13:50 O2 Sat by Pulse Oximetry (%) 98 10/18/17 21:00 Constitutional: Yes: Calm Eyes: Yes: Conjunctiva Clear HENT: Yes: Atraumatic Cardiovascular: Yes: S1, S2 Gastrointestinal: Yes: Soft Genitourinary: Yes: Lopez Present Edema: Yes Edema: LLE: Trace, RLE: Trace Integumentary: Yes: Venous Stasis Changes Neurological: Yes: Confusion Labs: CBC, BMP 10/18/17 05:30 10/19/17 06:45 INR, PTT INR 0.99 (0.82-1.09) 10/15/17 06:00 Fibrinogen 429.0 mg/dL (238-498) 10/15/17 06:00 Problem List - Problems (1) CKD (chronic kidney disease) Code(s): N18.9 - CHRONIC KIDNEY DISEASE, UNSPECIFIED (2) Dementia Code(s): F03.90 - UNSPECIFIED DEMENTIA WITHOUT BEHAVIORAL DISTURBANCE (3) Fall Code(s): W19.XXXA - UNSPECIFIED FALL, INITIAL ENCOUNTER Qualifiers: Encounter type: initial encounter Qualified Code(s): W19.XXXA - Unspecified fall, initial encounter (4) HTN (hypertension) Code(s): I10 - ESSENTIAL (PRIMARY) HYPERTENSION (5) Thrombocytopenia Code(s): D69.6 - THROMBOCYTOPENIA, UNSPECIFIED Assessment/Plan Current Medications Generic Name Dose Route Start Last Admin Trade Name Freq PRN Reason Stop Dose Admin Acetaminophen 325 mg 10/18/17 10:25 10/19/17 08:29 Tylenol - PO 325 mg Q6H PRN Administration PAIN LEVEL 6-10 Dextrose 1,000 mls @ 83 mls/hr 10/18/17 08:45 10/19/17 14:12 D5w - IV 83 mls/hr Q12H [facility] Administration Famotidine/Sodium Chloride 20 mg in 50 mls @ 100 mls/hr 10/18/17 22:00 10:32 Pepcid 20 Mg Premixed Ivpb - IVPB 100 mls/hr BID [facility] Administration Metoprolol Succinate 25 mg 10/19/17 10:00 10/19/17 10:32 Toprol Xl - PO 25 mg DAILY [facility] Administration Oxycodone HCl 5 mg 10/18/17 10:25 10/19/17 08:28 Roxicodone - PO 5 mg Q6H PRN Administration PAIN LEVEL 6-10 Tamsulosin HCl 0.4 mg 10/18/17 19:00 10/19/17 08:28 Flomax - PO 0.4 mg DAILY@0830 [facility] Administration Impression 1. JOHANA 2. s/p fall 3. thrombocytopenia 4. HTN 5. leukocytosis 6. anemia 7. sepsis 8. r/o lymphoproliferative disorder 9. hypernatremia Plan - cont fluids - repeat labs in am - renal workup in progress - oncology follow up - johana likely from sepsis and hypotension
--- NOTE | 2017-10-19 15:40 | PN ---
Progress Note (short form) - Note Progress Note: Resting in NAD. Awake and alert and interactive, but remains confused. Denies CP or SOB. OBJECTIVE: Intake & Output 10/16/17 10/17/17 10/18/17 10/19/17 23:59 23:59 23:59 23:59 Intake Total 3125 2354 2471 1013 Output Total 3300 1300 1700 1600 Balance -175 1054 771 -587 Weight 142 lb 9.6 oz 138 lb 3.2 oz 141 lb 15.643 oz Last Vital Signs Temp Pulse Resp BP Pulse Ox 97.5 F L 81 17 99/57 98 10/19/17 13:50 10/19/17 13:50 10/19/17 13:50 10/19/17 13:50 10/19/17 09:00 Active Medications Acetaminophen (Tylenol -) 325 mg PO Q6H PRN PRN Reason: PAIN LEVEL 6-10 Last Admin: 10/19/17 08:29 Dose: 325 mg Dextrose (D5w -) 1,000 mls @ 83 mls/hr IV Q12H [facility] Last Admin: 10/19/17 14:12 Dose: 83 mls/hr Famotidine/Sodium Chloride (Pepcid 20 Mg Premixed Ivpb -) 20 mg in 50 mls @ 100 mls/hr IVPB BID [facility] Last Admin: 10/19/17 10:32 Dose: 100 mls/hr Metoprolol Succinate (Toprol Xl -) 25 mg PO DAILY [facility] Last Admin: 10/19/17 10:32 Dose: 25 mg Oxycodone HCl (Roxicodone -) 5 mg PO Q6H PRN PRN Reason: PAIN LEVEL 6-10 Last Admin: 10/19/17 08:28 Dose: 5 mg Tamsulosin HCl (Flomax -) 0.4 mg PO DAILY@0830 [facility] Last Admin: 10/19/17 08:28 Dose: 0.4 mg Gen: NAD at rest, confused Heart: RRR Lung: decreased breath sounds at the bases Abd: soft, nontender Ext: LLE weeping ulcers, ecchymosis ASSESSMENT AND PLAN: Septic Shock Anemia/Thrombocytopenia Suspected Hematologic process Acute Kidney Injury +Troponins - Off ABX - Local wound care per surgery - Hematology work up ongoing - Normal transfusion thresholds Dr Lr
--- NOTE | 2017-10-19 15:42 | PN ---
Progress Note, Physician - Current Medication List Current Medications: Active Medications Acetaminophen (Tylenol -) 325 mg PO Q6H PRN PRN Reason: PAIN LEVEL 6-10 Last Admin: 10/19/17 08:29 Dose: 325 mg Dextrose (D5w -) 1,000 mls @ 83 mls/hr IV Q12H [facility] Last Admin: 10/19/17 14:12 Dose: 83 mls/hr Famotidine/Sodium Chloride (Pepcid 20 Mg Premixed Ivpb -) 20 mg in 50 mls @ 100 mls/hr IVPB BID [facility] Last Admin: 10/19/17 10:32 Dose: 100 mls/hr Metoprolol Succinate (Toprol Xl -) 25 mg PO DAILY [facility] Last Admin: 10/19/17 10:32 Dose: 25 mg Oxycodone HCl (Roxicodone -) 5 mg PO Q6H PRN PRN Reason: PAIN LEVEL 6-10 Last Admin: 10/19/17 08:28 Dose: 5 mg Tamsulosin HCl (Flomax -) 0.4 mg PO DAILY@0830 [facility] Last Admin: 10/19/17 08:28 Dose: 0.4 mg - Objective Vital Signs: Vital Signs Temperature 97.5 F L 10/19/17 13:50 Pulse Rate 81 10/19/17 13:50 Respiratory Rate 17 10/19/17 13:50 Blood Pressure 99/57 10/19/17 13:50 O2 Sat by Pulse Oximetry (%) 98 10/19/17 09:00 Constitutional: Yes: No Distress HENT: Yes: Atraumatic Neck: Yes: Supple Cardiovascular: Yes: Regular Rate and Rhythm Respiratory: Yes: CTA Bilaterally, Rhonchi Gastrointestinal: Yes: Normal Bowel Sounds Genitourinary: Yes: Scrotal Edema Extremities: Yes: WNL Edema: No Neurological: Yes: Alert Labs: CBC, BMP 10/18/17 05:30 10/19/17 06:45 INR, PTT INR 0.99 (0.82-1.09) 10/15/17 06:00 Fibrinogen 429.0 mg/dL (238-498) 10/15/17 06:00 Problem List - Problems (1) CKD (chronic kidney disease) Assessment/Plan: cr still high nephro on board Code(s): N18.9 - CHRONIC KIDNEY DISEASE, UNSPECIFIED (2) Dementia Assessment/Plan: stable Code(s): F03.90 - UNSPECIFIED DEMENTIA WITHOUT BEHAVIORAL DISTURBANCE (3) HTN (hypertension) Assessment/Plan: bp stable Code(s): I10 - ESSENTIAL (PRIMARY) HYPERTENSION (4) Thrombocytopenia Code(s): D69.6 - THROMBOCYTOPENIA, UNSPECIFIED (5) Superficial laceration of face Code(s): S01.81XA - LACERATION W/O FOREIGN BODY OF OTH PART OF HEAD, INIT ENCNTR (6) Leukocytosis Code(s): D72.829 - ELEVATED WHITE BLOOD CELL COUNT, UNSPECIFIED
[2017-10-20] MEDS: DEXTROSE 5%-WATER - 1,000 ML IV SCH ×3 (02:49→17:20)
[2017-10-20] MEDS ORDERED: PT OWN MED DRAWER 7, Y5N ONE (10:21)
[2017-10-20] MEDS: TAMSULOSIN HCL 0.4 MG CAP.ER.24H (FP) PO SCH (10:24)
[2017-10-20] MEDS: FAMOTIDINE 20 MG/50 ML IVPB 20 MG/50 ML MG IVPB SCH ×2 (10:24→21:11)
[2017-10-20] MEDS: metoPROLOL SUCCINATE 25 MG TAB.SR.24H (FP) PO SCH (10:24)
--- NOTE | 2017-10-20 12:36 | PN ---
Progress Note, Physician History of Present Illness: Pt seen and examined at bedside. No great change in events. - Current Medication List Current Medications: Active Medications Acetaminophen (Tylenol -) 325 mg PO Q6H PRN PRN Reason: PAIN LEVEL 6-10 Last Admin: 10/19/17 08:29 Dose: 325 mg Dextrose (D5w -) 1,000 mls @ 83 mls/hr IV Q12H [facility] Last Admin: 10/20/17 02:49 Dose: 83 mls/hr Famotidine/Sodium Chloride (Pepcid 20 Mg Premixed Ivpb -) 20 mg in 50 mls @ 100 mls/hr IVPB BID [facility] Last Admin: 10/20/17 10:24 Dose: 100 mls/hr Metoprolol Succinate (Toprol Xl -) 25 mg PO DAILY [facility] Last Admin: 10/20/17 10:24 Dose: 25 mg Oxycodone HCl (Roxicodone -) 5 mg PO Q6H PRN PRN Reason: PAIN LEVEL 6-10 Last Admin: 10/19/17 08:28 Dose: 5 mg Tamsulosin HCl (Flomax -) 0.4 mg PO DAILY@0830 [facility] Last Admin: 10/20/17 10:24 Dose: 0.4 mg - Objective Vital Signs: Vital Signs Temperature 99.0 F 10/20/17 06:00 Pulse Rate 84 10/20/17 06:00 Respiratory Rate 18 10/20/17 06:00 Blood Pressure 106/55 10/20/17 06:00 O2 Sat by Pulse Oximetry (%) 97 10/19/17 21:00 Constitutional: Yes: Calm Eyes: Yes: Conjunctiva Clear HENT: Yes: Atraumatic Neck: Yes: Supple Cardiovascular: Yes: S1, S2 Respiratory: Yes: CTA Bilaterally Gastrointestinal: Yes: Normal Bowel Sounds, Soft Genitourinary: Yes: Incontinence Musculoskeletal: Yes: Muscle Weakness Edema: Yes Edema: LLE: 1+, RLE: 1+ Neurological: Yes: Confusion Labs: CBC, BMP 10/18/17 05:30 10/19/17 06:45 INR, PTT INR 0.99 (0.82-1.09) 10/15/17 06:00 Fibrinogen 429.0 mg/dL (238-498) 10/15/17 06:00 Problem List - Problems (1) CKD (chronic kidney disease) Code(s): N18.9 - CHRONIC KIDNEY DISEASE, UNSPECIFIED (2) Dementia Code(s): F03.90 - UNSPECIFIED DEMENTIA WITHOUT BEHAVIORAL DISTURBANCE (3) Fall Code(s): W19.XXXA - UNSPECIFIED FALL, INITIAL ENCOUNTER Qualifiers: Encounter type: initial encounter Qualified Code(s): W19.XXXA - Unspecified fall, initial encounter (4) HTN (hypertension) Code(s): I10 - ESSENTIAL (PRIMARY) HYPERTENSION (5) Thrombocytopenia Code(s): D69.6 - THROMBOCYTOPENIA, UNSPECIFIED Assessment/Plan Current Medications Generic Name Dose Route Start Last Admin Trade Name Freq PRN Reason Stop Dose Admin Acetaminophen 325 mg 10/18/17 10:25 10/19/17 08:29 Tylenol - PO 325 mg Q6H PRN Administration PAIN LEVEL 6-10 Dextrose 1,000 mls @ 83 mls/hr 10/18/17 08:45 10/20/17 02:49 D5w - IV 83 mls/hr Q12H [facility] Administration Famotidine/Sodium Chloride 20 mg in 50 mls @ 100 mls/hr 10/18/17 22:00 10:24 Pepcid 20 Mg Premixed Ivpb - IVPB 100 mls/hr BID [facility] Administration Metoprolol Succinate 25 mg 10/19/17 10:00 10/20/17 10:24 Toprol Xl - PO 25 mg DAILY [facility] Administration Oxycodone HCl 5 mg 10/18/17 10:25 10/19/17 08:28 Roxicodone - PO 5 mg Q6H PRN Administration PAIN LEVEL 6-10 Tamsulosin HCl 0.4 mg 10/18/17 19:00 10/20/17 10:24 Flomax - PO 0.4 mg DAILY@0830 [facility] Administration Laboratory Tests 10/14/17 05:30 KRYS Screen Negative c-ANCA <1:20 Proteinase 3 (PR3) <3.5 p-ANCA <1:20 Atypical p-ANCA <1:20 Myeloperoxidase Ab <9.0 Double Strand DNA Ab <1 Glomerular Base Memb Ab 5 Impression 1. SHILA 2. s/p fall 3. thrombocytopenia 4. HTN 5. leukocytosis 6. anemia 7. sepsis 8. r/o lymphoproliferative disorder 9. hypernatremia Plan - check bmp - can decrease rate of fluids - renal workup in progress - oncology follow up - shila likely from sepsis and hypotension
--- NOTE | 2017-10-20 12:49 | PN ---
Progress Note (short form) - Note Progress Note: PULMONARY Denies shortness of breath or chest pain. Tolerating PO. Vital Signs Period Temp Pulse Resp BP Sys/Hammond Pulse Ox Last 24 Hr 97.5 F-988.4 F 81-94 -18 99-129/55-69 97 Gen: NAD at rest Heart: RRR Lung: decreased breath sounds at the bases Abd: soft, nontender Ext: LLE skin ulcerations CBC, BMP 10/18/17 05:30 10/19/17 06:45 Active Medications Acetaminophen (Tylenol -) 325 mg PO Q6H PRN PRN Reason: PAIN LEVEL 6-10 Last Admin: 10/19/17 08:29 Dose: 325 mg Famotidine/Sodium Chloride (Pepcid 20 Mg Premixed Ivpb -) 20 mg in 50 mls @ 100 mls/hr IVPB BID [facility] Last Admin: 10/20/17 10:24 Dose: 100 mls/hr Dextrose (D5w -) 1,000 mls @ 75 mls/hr IV ASDIR [facility] Metoprolol Succinate (Toprol Xl -) 25 mg PO DAILY [facility] Last Admin: 10/20/17 10:24 Dose: 25 mg Oxycodone HCl (Roxicodone -) 5 mg PO Q6H PRN PRN Reason: PAIN LEVEL 6-10 Last Admin: 10/19/17 08:28 Dose: 5 mg Tamsulosin HCl (Flomax -) 0.4 mg PO DAILY@0830 [facility] Last Admin: 10/20/17 10:24 Dose: 0.4 mg A/P Shock of unclear etiology resolved Suspect Leukemia Acute on Chronic Renal Failure +Troponins - completed antibiotics - monitor urine output, creatinine - hematology f/u - PO as tolerated - DVT prophylaxis
[2017-10-20 13:54] LABS: ANION GAP 9 (8-16); BLOOD UREA NITROGEN 57 mg/dL (7-18); CALCIUM 7.8 mg/dL (8.5-10.1); CHLORIDE 107 mmol/L (98-107); CO2 24 mmol/L (21-32); CREATININE 2.2 mg/dL (0.7-1.3); GLUCOSE,RANDOM 145 mg/dL (74-106); POTASSIUM 3.7 mmol/L (3.5-5.1); SODIUM 140 mmol/L (136-145)
--- NOTE | 2017-10-20 14:38 | PN ---
Progress Note (short form) - Note Progress Note: Seen and examined Unable to obtain ROS Cor: RSR, No murmurs, No gallops Lungs: Clear to P&A Abd: Soft, Normal bowel sounds, No organomegaly Ext:No significant edema Last Vital Signs Temp Pulse Resp BP Pulse Ox 99.0 F 84 18 106/55 97 10/20/17 06:00 10/20/17 06:00 10/20/17 06:00 10/20/17 06:00 10/19/17 21:00 CBC, BMP 10/18/17 05:30 10/20/17 13:20 Current Medications Generic Name Dose Route Start Last Admin Trade Name Freq PRN Reason Stop Dose Admin Acetaminophen 325 mg 10/18/17 10:25 10/19/17 08:29 Tylenol - PO 325 mg Q6H PRN Administration PAIN LEVEL 6-10 Famotidine/Sodium Chloride 20 mg in 50 mls @ 100 mls/hr 10/18/17 22:00 10:24 Pepcid 20 Mg Premixed Ivpb - IVPB 100 mls/hr BID [facility] Administration Dextrose 1,000 mls @ 75 mls/hr 10/20/17 12:37 D5w - IV ASDIR [facility] Metoprolol Succinate 25 mg 10/19/17 10:00 10/20/17 10:24 Toprol Xl - PO 25 mg DAILY [facility] Administration Oxycodone HCl 5 mg 10/18/17 10:25 10/19/17 08:28 Roxicodone - PO 5 mg Q6H PRN Administration PAIN LEVEL 6-10 Tamsulosin HCl 0.4 mg 10/18/17 19:00 10/20/17 10:24 Flomax - PO 0.4 mg DAILY@0830 [facility] Administration 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 JOHANA on CKD Hypotension Unclear baseline CBC The clinical course of LPL is usually indolent. not a candidate for chemo/immuno therapy will give allopurinol 100mg/d and dex [id number] PO, in hopes to mitigate a little the effects from LPL/increased IgM. pal care c/s for SNF.
--- NOTE | 2017-10-20 15:50 | PN ---
Progress Note, Physician History of Present Illness: patient stable no new issues continues to be confused - Current Medication List Current Medications: Active Medications Acetaminophen (Tylenol -) 325 mg PO Q6H PRN PRN Reason: PAIN LEVEL 6-10 Last Admin: 10/19/17 08:29 Dose: 325 mg Famotidine/Sodium Chloride (Pepcid 20 Mg Premixed Ivpb -) 20 mg in 50 mls @ 100 mls/hr IVPB BID [facility] Last Admin: 10/20/17 10:24 Dose: 100 mls/hr Dextrose (D5w -) 1,000 mls @ 75 mls/hr IV ASDIR [facility] Metoprolol Succinate (Toprol Xl -) 25 mg PO DAILY [facility] Last Admin: 10/20/17 10:24 Dose: 25 mg Oxycodone HCl (Roxicodone -) 5 mg PO Q6H PRN PRN Reason: PAIN LEVEL 6-10 Last Admin: 10/19/17 08:28 Dose: 5 mg Tamsulosin HCl (Flomax -) 0.4 mg PO DAILY@0830 [facility] Last Admin: 10/20/17 10:24 Dose: 0.4 mg - Objective Vital Signs: Vital Signs Temperature 98.1 F 10/20/17 14:15 Pulse Rate 90 10/20/17 14:15 Respiratory Rate 22 10/20/17 14:15 Blood Pressure 102/50 10/20/17 14:15 O2 Sat by Pulse Oximetry (%) 97 10/19/17 21:00 Constitutional: Yes: No Distress, Calm Cardiovascular: Yes: Regular Rate and Rhythm Respiratory: Yes: Regular, CTA Bilaterally Gastrointestinal: Yes: Normal Bowel Sounds, Soft Musculoskeletal: Yes: WNL Extremities: Yes: Other Edema: LLE: 1+, RLE: 1+ Integumentary: Yes: Skin Tear, Other Neurological: Yes: Alert, Other Psychiatric: Yes: Other Labs: CBC, BMP 10/18/17 05:30 10/20/17 13:20 INR, PTT INR 0.99 (0.82-1.09) 10/15/17 06:00 Fibrinogen 429.0 mg/dL (238-498) 10/15/17 06:00 Assessment/Plan Problem List - Problems (1) CKD (chronic kidney disease) Code(s): N18.9 - CHRONIC KIDNEY DISEASE, UNSPECIFIED (2) Dementia Code(s): F03.90 - UNSPECIFIED DEMENTIA WITHOUT BEHAVIORAL DISTURBANCE (3) Fall Code(s): W19.XXXA - UNSPECIFIED FALL, INITIAL ENCOUNTER Qualifiers: Encounter type: initial encounter Qualified Code(s): W19.XXXA - Unspecified fall, initial encounter (4) HTN (hypertension) Code(s): I10 - ESSENTIAL (PRIMARY) HYPERTENSION (5) Thrombocytopenia Code(s): D69.6 - THROMBOCYTOPENIA, UNSPECIFIED Septic Shock R/O TTP Acute Kidney Injury +Troponins plan continue to monitor off of abx will continue current mgmt monitor wbc rest as per the team
--- NOTE | 2017-10-20 17:14 | PN ---
Progress Note (short form) - Note Progress Note: Vascular surgery Pt seen and examined. Called to evalaute bed sore. Right sacral wound -- DTI Allevyn dressing , please offload area. Richard Bowling DO
--- NOTE | 2017-10-20 22:49 | PN ---
Progress Note, Physician - Current Medication List Current Medications: Active Medications Acetaminophen (Tylenol -) 325 mg PO Q6H PRN PRN Reason: PAIN LEVEL 6-10 Last Admin: 10/19/17 08:29 Dose: 325 mg Famotidine/Sodium Chloride (Pepcid 20 Mg Premixed Ivpb -) 20 mg in 50 mls @ 100 mls/hr IVPB BID [facility] Last Admin: 10/20/17 21:11 Dose: 100 mls/hr Dextrose (D5w -) 1,000 mls @ 75 mls/hr IV ASDIR [facility] Last Admin: 10/20/17 17:20 Dose: 75 mls/hr Metoprolol Succinate (Toprol Xl -) 25 mg PO DAILY [facility] Last Admin: 10/20/17 10:24 Dose: 25 mg Oxycodone HCl (Roxicodone -) 5 mg PO Q6H PRN PRN Reason: PAIN LEVEL 6-10 Last Admin: 10/19/17 08:28 Dose: 5 mg Tamsulosin HCl (Flomax -) 0.4 mg PO DAILY@0830 [facility] Last Admin: 10/20/17 10:24 Dose: 0.4 mg - Objective Vital Signs: Vital Signs Temperature 98.0 F 10/20/17 19:00 Pulse Rate 96 H 10/20/17 19:00 Respiratory Rate 20 10/20/17 19:00 Blood Pressure 133/54 10/20/17 19:00 O2 Sat by Pulse Oximetry (%) 97 10/20/17 09:00 Labs: CBC, BMP 10/18/17 05:30 10/20/17 13:20 INR, PTT INR 0.99 (0.82-1.09) 10/15/17 06:00 Fibrinogen 429.0 mg/dL (238-498) 10/15/17 06:00
[2017-10-21 08:57] LABS: ALBUMIN 1.4 g/dl (3.4-5.0); ALK PHOS 172 U/L (45-117); ANION GAP 11 (8-16); BLOOD UREA NITROGEN 54 mg/dL (7-18); CALCIUM 7.6 mg/dL (8.5-10.1); CHLORIDE 107 mmol/L (98-107); CO2 22 mmol/L (21-32); CREATININE 2.1 mg/dL (0.7-1.3); GLUCOSE,RANDOM 104 mg/dL (74-106); LDH 208 U/L (87-241); POTASSIUM 4.1 mmol/L (3.5-5.1); SGOT/AST 34 U/L (15-37); SGPT/ALT 31 U/L (12-78); SODIUM 140 mmol/L (136-145)
[2017-10-21 09:02] LABS: BASO % 0.4 % (0-2.0); EOS % 0.2 % (0-4.5); HEMATOCRIT 29.8 % (35.4-49); HEMOGLOBIN 9.3 GM/dL (11.7-16.9); LYMPH % 80.8 % (8-40); MCH 31.3 pg (25.7-33.7); MCHC 31.2 g/dl (32.0-35.9); MEAN CELL VOLUME 100.3 fl (80-96); MEAN PLT VOLUME 9.2 fl (7.5-11.1); MONO % 3.1 % (3.8-10.2); NEUT % 15.5 % (42.8-82.8); PLATELET COUNT 125 K/MM3 (134-434); RBC 2.97 M/mm3 (4.00-5.60); RDW 16.2 % (11.9-15.9)
[2017-10-21] MEDS: ALLOPURINOL 100 MG TABLET (FP) PO SCH (09:28)
[2017-10-21] MEDS: metoPROLOL SUCCINATE 25 MG TAB.SR.24H (FP) PO SCH (09:28)
[2017-10-21] MEDS: FAMOTIDINE 20 MG/50 ML IVPB 20 MG/50 ML MG IVPB SCH ×2 (09:28→21:24)
[2017-10-21] MEDS: TAMSULOSIN HCL 0.4 MG CAP.ER.24H (FP) PO SCH (09:28)
[2017-10-21] MEDS: oxyCODONE HCL 5 MG TABLET PO PRN (09:53)
[2017-10-21] MEDS: ACETAMINOPHEN 325 MG TABLET (FP) PO PRN (09:54)
[2017-10-21 09:57] LABS: WHITE BLOOD COUNT 99.1 K/mm3 (4.0-10.0)
--- NOTE | 2017-10-21 11:29 | PN ---
Progress Note, Physician History of Present Illness: wbc still keeps on going up no other issues - Current Medication List Current Medications: Active Medications Acetaminophen (Tylenol -) 325 mg PO Q6H PRN PRN Reason: PAIN LEVEL 6-10 Last Admin: 10/21/17 09:54 Dose: 325 mg Allopurinol (Zyloprim -) 100 mg PO DAILY [facility] Last Admin: 10/21/17 09:28 Dose: 100 mg Dexamethasone (Decadron -) 40 mg PO DAILY [facility] Stop: 10/24/17 10:01 Famotidine/Sodium Chloride (Pepcid 20 Mg Premixed Ivpb -) 20 mg in 50 mls @ 100 mls/hr IVPB BID [facility] Last Admin: 10/21/17 09:28 Dose: 100 mls/hr Dextrose (D5w -) 1,000 mls @ 75 mls/hr IV ASDIR [facility] Last Admin: 10/20/17 17:20 Dose: 75 mls/hr Metoprolol Succinate (Toprol Xl -) 25 mg PO DAILY [facility] Last Admin: 10/21/17 09:28 Dose: 25 mg Tamsulosin HCl (Flomax -) 0.4 mg PO DAILY@0830 [facility] Last Admin: 10/21/17 09:28 Dose: 0.4 mg - Objective Vital Signs: Vital Signs Temperature 97.6 F 10/21/17 09:00 Pulse Rate 80 10/21/17 09:00 Respiratory Rate 20 10/21/17 09:00 Blood Pressure 131/68 10/21/17 09:00 O2 Sat by Pulse Oximetry (%) 97 10/20/17 09:00 Constitutional: Yes: No Distress, Calm, Thin, Other (failure to thrive) Cardiovascular: Yes: Regular Rate and Rhythm Respiratory: Yes: Regular, CTA Bilaterally Gastrointestinal: Yes: Normal Bowel Sounds, Soft Musculoskeletal: Yes: WNL Extremities: Yes: WNL Neurological: Yes: Alert, Other Psychiatric: Yes: Other Labs: CBC, BMP 10/21/17 06:00 10/21/17 06:20 INR, PTT INR 0.99 (0.82-1.09) 10/15/17 06:00 Fibrinogen 429.0 mg/dL (238-498) 10/15/17 06:00 Assessment/Plan Problem List - Problems (1) CKD (chronic kidney disease) Code(s): N18.9 - CHRONIC KIDNEY DISEASE, UNSPECIFIED (2) Dementia Code(s): F03.90 - UNSPECIFIED DEMENTIA WITHOUT BEHAVIORAL DISTURBANCE (3) Fall Code(s): W19.XXXA - UNSPECIFIED FALL, INITIAL ENCOUNTER Qualifiers: Encounter type: initial encounter Qualified Code(s): W19.XXXA - Unspecified fall, initial encounter (4) HTN (hypertension) Code(s): I10 - ESSENTIAL (PRIMARY) HYPERTENSION (5) Thrombocytopenia Code(s): D69.6 - THROMBOCYTOPENIA, UNSPECIFIED Septic Shock R/O TTP Acute Kidney Injury +Troponins plan continue to monitor off of abx will continue current mgmt oncology to evaluate if this is lymphoma or anything else rest as per the team
--- NOTE | 2017-10-21 12:00 | PN ---
Progress Note (short form) - Note Progress Note: Resting in NAD. Awake and alert and interactive, but remains confused. Denies CP or SOB. OBJECTIVE: Intake & Output 10/18/17 10/19/17 10/20/17 10/21/17 23:59 23:59 23:59 23:59 Intake Total 2471 3038 2899.5 Output Total 1700 1900 1150 Balance 771 1138 1749.5 Weight 141 lb 15.643 oz Last Vital Signs Temp Pulse Resp BP Pulse Ox 97.6 F 80 20 131/68 97 10/21/17 09:00 10/21/17 09:00 10/21/17 09:00 10/21/17 09:00 10/20/17 09:00 Active Medications Acetaminophen (Tylenol -) 325 mg PO Q6H PRN PRN Reason: PAIN LEVEL 6-10 Last Admin: 10/21/17 09:54 Dose: 325 mg Allopurinol (Zyloprim -) 100 mg PO DAILY [facility] Last Admin: 10/21/17 09:28 Dose: 100 mg Dexamethasone (Decadron -) 40 mg PO DAILY [facility] Stop: 10/24/17 10:01 Famotidine/Sodium Chloride (Pepcid 20 Mg Premixed Ivpb -) 20 mg in 50 mls @ 100 mls/hr IVPB BID [facility] Last Admin: 10/21/17 09:28 Dose: 100 mls/hr Dextrose (D5w -) 1,000 mls @ 75 mls/hr IV ASDIR [facility] Last Admin: 10/20/17 17:20 Dose: 75 mls/hr Metoprolol Succinate (Toprol Xl -) 25 mg PO DAILY [facility] Last Admin: 10/21/17 09:28 Dose: 25 mg Tamsulosin HCl (Flomax -) 0.4 mg PO DAILY@0830 [facility] Last Admin: 10/21/17 09:28 Dose: 0.4 mg Gen: NAD at rest, confused Heart: RRR Lung: decreased breath sounds at the bases Abd: soft, nontender Ext: LLE weeping ulcers, ecchymosis ASSESSMENT AND PLAN: Septic Shock Anemia/Thrombocytopenia Suspected Hematologic process Acute Kidney Injury +Troponins - Off ABX - Local wound care per surgery - Hematology work up ongoing for severe leukocytosis - Normal transfusion thresholds Dr Lr
[2017-10-21] MEDS: DEXAMETHASONE 4 MG TABLET (FP) PO SCH (12:43)
[2017-10-21] MEDS: DEXTROSE 5%-WATER - 1,000 ML IV SCH (12:54)
--- NOTE | 2017-10-21 13:17 | PN ---
Progress Note, Physician History of Present Illness: Pt seen and examined at bedside. He remains confused. - Current Medication List Current Medications: Active Medications Acetaminophen (Tylenol -) 325 mg PO Q6H PRN PRN Reason: PAIN LEVEL 6-10 Last Admin: 10/21/17 09:54 Dose: 325 mg Allopurinol (Zyloprim -) 100 mg PO DAILY [facility] Last Admin: 10/21/17 09:28 Dose: 100 mg Dexamethasone (Decadron -) 40 mg PO DAILY [facility] Stop: 10/24/17 10:01 Last Admin: 10/21/17 12:43 Dose: 40 mg Famotidine/Sodium Chloride (Pepcid 20 Mg Premixed Ivpb -) 20 mg in 50 mls @ 100 mls/hr IVPB BID [facility] Last Admin: 10/21/17 09:28 Dose: 100 mls/hr Dextrose (D5w -) 1,000 mls @ 75 mls/hr IV ASDIR [facility] Last Admin: 10/21/17 12:54 Dose: Not Given Metoprolol Succinate (Toprol Xl -) 25 mg PO DAILY [facility] Last Admin: 10/21/17 09:28 Dose: 25 mg Tamsulosin HCl (Flomax -) 0.4 mg PO DAILY@0830 [facility] Last Admin: 10/21/17 09:28 Dose: 0.4 mg - Objective Vital Signs: Vital Signs Temperature 97.6 F 10/21/17 09:00 Pulse Rate 80 10/21/17 09:00 Respiratory Rate 20 10/21/17 09:00 Blood Pressure 131/68 10/21/17 09:00 O2 Sat by Pulse Oximetry (%) 97 10/20/17 09:00 Constitutional: Yes: Calm Eyes: Yes: Conjunctiva Clear HENT: Yes: Atraumatic Neck: Yes: Supple Cardiovascular: Yes: S1, S2 Respiratory: Yes: CTA Bilaterally Gastrointestinal: Yes: Normal Bowel Sounds, Soft Genitourinary: Yes: Incontinence Musculoskeletal: Yes: Muscle Weakness Edema: LLE: Trace, RLE: Trace Integumentary: Yes: Laceration Neurological: Yes: Confusion Labs: CBC, BMP 10/21/17 06:00 10/21/17 06:20 INR, PTT INR 0.99 (0.82-1.09) 10/15/17 06:00 Fibrinogen 429.0 mg/dL (238-498) 10/15/17 06:00 Problem List - Problems (1) CKD (chronic kidney disease) Code(s): N18.9 - CHRONIC KIDNEY DISEASE, UNSPECIFIED (2) Dementia Code(s): F03.90 - UNSPECIFIED DEMENTIA WITHOUT BEHAVIORAL DISTURBANCE (3) Fall Code(s): W19.XXXA - UNSPECIFIED FALL, INITIAL ENCOUNTER Qualifiers: Encounter type: initial encounter Qualified Code(s): W19.XXXA - Unspecified fall, initial encounter (4) HTN (hypertension) Code(s): I10 - ESSENTIAL (PRIMARY) HYPERTENSION (5) Thrombocytopenia Code(s): D69.6 - THROMBOCYTOPENIA, UNSPECIFIED Assessment/Plan Current Medications Generic Name Dose Route Start Last Admin Trade Name Freq PRN Reason Stop Dose Admin Acetaminophen 325 mg 10/18/17 10:25 10/21/17 09:54 Tylenol - PO 325 mg Q6H PRN Administration PAIN LEVEL 6-10 Allopurinol 100 mg 10/21/17 10:00 10/21/17 09:28 Zyloprim - PO 100 mg DAILY [facility] Administration Dexamethasone 40 mg 10/21/17 10:00 10/21/17 12:43 Decadron - PO 10/24/17 10:01 40 mg DAILY [facility] Administration Famotidine/Sodium Chloride 20 mg in 50 mls @ 100 mls/hr 10/18/17 22:00 09:28 Pepcid 20 Mg Premixed Ivpb - IVPB 100 mls/hr BID [facility] Administration Dextrose 1,000 mls @ 75 mls/hr 10/20/17 12:37 10/21/17 12:54 D5w - IV Not Given ASDIR [facility] Metoprolol Succinate 25 mg 10/19/17 10:00 10/21/17 09:28 Toprol Xl - PO 25 mg DAILY [facility] Administration Tamsulosin HCl 0.4 mg 10/18/17 19:00 10/21/17 09:28 Flomax - PO 0.4 mg DAILY@0830 [facility] Administration Impression 1. JOHANA 2. s/p fall 3. thrombocytopenia 4. HTN 5. leukocytosis 6. anemia 7. sepsis 8. r/o lymphoproliferative disorder 9. hypernatremia Plan - cont d5w - repeat labs in am - oncology follow up as wbc is rising - cont to monitor renal function - renal workup in progress - johana likely from sepsis and hypotension
[2017-10-21] MEDS ORDERED: ACETAMINOPHEN 325 MG TABLET (FP) PO PRN (14:09)
[2017-10-21 15:25] LABS: ANISOCYTOSIS 1+; MACROCYTOSIS 1+
--- NOTE | 2017-10-21 22:25 | PN ---
Progress Note, Physician History of Present Illness: No new changes - Current Medication List Current Medications: Active Medications Acetaminophen (Tylenol -) 325 mg PO Q6H PRN PRN Reason: PAIN LEVEL 6-10 Last Admin: 10/21/17 09:54 Dose: 325 mg Acetaminophen (Tylenol -) 325 mg PO Q6H PRN PRN Reason: PAIN LEVEL 6-10 Allopurinol (Zyloprim -) 100 mg PO DAILY [facility] Last Admin: 10/21/17 09:28 Dose: 100 mg Dexamethasone (Decadron -) 40 mg PO DAILY [facility] Stop: 10/24/17 10:01 Last Admin: 10/21/17 12:43 Dose: 40 mg Famotidine/Sodium Chloride (Pepcid 20 Mg Premixed Ivpb -) 20 mg in 50 mls @ 100 mls/hr IVPB BID [facility] Last Admin: 10/21/17 21:24 Dose: 100 mls/hr Dextrose (D5w -) 1,000 mls @ 75 mls/hr IV ASDIR [facility] Last Admin: 10/21/17 12:54 Dose: Not Given Metoprolol Succinate (Toprol Xl -) 25 mg PO DAILY [facility] Last Admin: 10/21/17 09:28 Dose: 25 mg Oxycodone HCl (Roxicodone -) 5 mg PO Q6H PRN PRN Reason: PAIN LEVEL 6-10 Tamsulosin HCl (Flomax -) 0.4 mg PO DAILY@0830 [facility] Last Admin: 10/21/17 09:28 Dose: 0.4 mg - Objective Vital Signs: Vital Signs Temperature 98.0 F 10/21/17 21:30 Pulse Rate 80 10/21/17 21:30 Respiratory Rate 20 10/21/17 21:30 Blood Pressure 104/59 10/21/17 21:30 O2 Sat by Pulse Oximetry (%) 95 10/21/17 09:00 Cardiovascular: Yes: WNL, Regular Rate and Rhythm Respiratory: Yes: WNL, Regular, CTA Bilaterally Gastrointestinal: Yes: WNL, Normal Bowel Sounds, Soft Extremities: Yes: Other Edema: LLE: Trace, RLE: Trace Labs: CBC, BMP 10/21/17 06:00 10/21/17 06:20 INR, PTT INR 0.99 (0.82-1.09) 10/15/17 06:00 Fibrinogen 429.0 mg/dL (238-498) 10/15/17 06:00 Problem List - Problems (1) Leukocytosis Assessment/Plan: Worsening leukocytosis Cont aloopurinol/decadron As per heme W/U in progress Code(s): D72.829 - ELEVATED WHITE BLOOD CELL COUNT, UNSPECIFIED (2) Sepsis Assessment/Plan: Pt is off antibxs Cont to monitor Code(s): A41.9 - SEPSIS, UNSPECIFIED ORGANISM (3) JOHANA (acute kidney injury) Assessment/Plan: Cont IVF Code(s): N17.9 - ACUTE KIDNEY FAILURE, UNSPECIFIED (4) Dementia Code(s): F03.90 - UNSPECIFIED DEMENTIA WITHOUT BEHAVIORAL DISTURBANCE (5) Thrombocytopenia Code(s): D69.6 - THROMBOCYTOPENIA, UNSPECIFIED
[2017-10-22 07:19] LABS: BASO % 0.4 % (0-2.0); HEMOGLOBIN 8.9 GM/dL (11.7-16.9); LYMPH % 71.9 % (8-40); MCH 31.3 pg (25.7-33.7); MCHC 31.7 g/dl (32.0-35.9); MEAN CELL VOLUME 98.8 fl (80-96); MEAN PLT VOLUME 9.6 fl (7.5-11.1); MONO % 2.2 % (3.8-10.2); NEUT % 25.5 % (42.8-82.8); PLATELET COUNT 115 K/MM3 (134-434); RBC 2.83 M/mm3 (4.00-5.60); RDW 16.1 % (11.9-15.9)
[2017-10-22 07:26] LABS: WHITE BLOOD COUNT 55.7 K/mm3 (4.0-10.0)
[2017-10-22 07:41] LABS: ALBUMIN 1.4 g/dl (3.4-5.0); ANION GAP 10 (8-16); BLOOD UREA NITROGEN 53 mg/dL (7-18); CALCIUM 7.7 mg/dL (8.5-10.1); CHLORIDE 105 mmol/L (98-107); CO2 22 mmol/L (21-32); GLUCOSE,RANDOM 148 mg/dL (74-106); POTASSIUM 4.6 mmol/L (3.5-5.1); SODIUM 137 mmol/L (136-145)
[2017-10-22 07:44] LABS: ALK PHOS 152 U/L (45-117); SGOT/AST 24 U/L (15-37); SGPT/ALT 28 U/L (12-78)
[2017-10-22] MEDS: TAMSULOSIN HCL 0.4 MG CAP.ER.24H (FP) PO SCH (08:23)
[2017-10-22 09:21] LABS: PLATELET ESTIMATE DECREASED
[2017-10-22] MEDS: FAMOTIDINE 20 MG/50 ML IVPB 20 MG/50 ML MG IVPB SCH ×2 (10:07→21:27)
[2017-10-22] MEDS: metoPROLOL SUCCINATE 25 MG TAB.SR.24H (FP) PO SCH (10:07)
[2017-10-22] MEDS: ALLOPURINOL 100 MG TABLET (FP) PO SCH (10:07)
[2017-10-22] MEDS: ACETAMINOPHEN 325 MG TABLET (FP) PO PRN (10:35)
[2017-10-22] MEDS: oxyCODONE HCL 5 MG TABLET PO PRN ×2 (10:39→21:27)
[2017-10-22] MEDS: DEXAMETHASONE 4 MG TABLET (FP) PO SCH (11:58)
--- NOTE | 2017-10-22 12:18 | PN ---
Progress Note (short form) - Note Progress Note: PULMONARY AWAKE/ALERT OFFERS NO RESP COMPLAINTS VSS/AFEBRILE Gen: NAD at rest, Heart: RRR Lung: decreased breath sounds at the bases Abd: soft, nontender Ext: LLE weeping ulcers, ecchymosis LABS/MEDS/NOTES/IMAGES REVIEWED Septic Shock resolved LPL/Waldenstrom's Anemia/Thrombocytopenia Acute Kidney Injury +Troponins - Off ABX - Local wound care per surgery - Hematology work up ongoing - Normal transfusion thresholds Paige STARR MD
--- NOTE | 2017-10-22 13:50 | PN ---
Progress Note, Physician History of Present Illness: wbc trending down has decreased to half lot of edema including scrotal - Current Medication List Current Medications: Active Medications Acetaminophen (Tylenol -) 325 mg PO Q6H PRN PRN Reason: PAIN LEVEL 6-10 Last Admin: 10/22/17 10:35 Dose: 325 mg Acetaminophen (Tylenol -) 325 mg PO Q6H PRN PRN Reason: PAIN LEVEL 6-10 Allopurinol (Zyloprim -) 100 mg PO DAILY [facility] Last Admin: 10/22/17 10:07 Dose: 100 mg Dexamethasone (Decadron -) 40 mg PO DAILY [facility] Stop: 10/24/17 10:01 Last Admin: 10/22/17 11:58 Dose: 40 mg Famotidine/Sodium Chloride (Pepcid 20 Mg Premixed Ivpb -) 20 mg in 50 mls @ 100 mls/hr IVPB BID [facility] Last Admin: 10/22/17 10:07 Dose: 100 mls/hr Dextrose (D5w -) 1,000 mls @ 75 mls/hr IV ASDIR [facility] Last Admin: 10/21/17 12:54 Dose: Not Given Metoprolol Succinate (Toprol Xl -) 25 mg PO DAILY [facility] Last Admin: 10/22/17 10:07 Dose: Not Given Oxycodone HCl (Roxicodone -) 5 mg PO Q6H PRN PRN Reason: PAIN LEVEL 6-10 Last Admin: 10/22/17 10:39 Dose: 5 mg Tamsulosin HCl (Flomax -) 0.4 mg PO DAILY@0830 [facility] Last Admin: 10/22/17 08:23 Dose: 0.4 mg - Objective Vital Signs: Vital Signs Temperature 98 F 10/22/17 10:00 Pulse Rate 76 10/22/17 10:00 Respiratory Rate 20 10/22/17 10:00 Blood Pressure 91/50 10/22/17 10:00 O2 Sat by Pulse Oximetry (%) 95 10/21/17 21:00 Constitutional: Yes: No Distress, Calm Cardiovascular: Yes: Regular Rate and Rhythm Respiratory: Yes: Regular, CTA Bilaterally Gastrointestinal: Yes: Normal Bowel Sounds, Soft Genitourinary: Yes: Lopez Present Musculoskeletal: Yes: Other Extremities: Yes: WNL Integumentary: Yes: Skin Tear Neurological: Yes: Alert, Other Psychiatric: Yes: Other Labs: CBC, BMP 06/15/18 06:35 10/22/17 06:35 INR, PTT INR 0.99 (0.82-1.09) 10/15/17 06:00 Fibrinogen 429.0 mg/dL (238-498) 10/15/17 06:00 Assessment/Plan Problem List - Problems (1) CKD (chronic kidney disease) Code(s): N18.9 - CHRONIC KIDNEY DISEASE, UNSPECIFIED (2) Dementia Code(s): F03.90 - UNSPECIFIED DEMENTIA WITHOUT BEHAVIORAL DISTURBANCE (3) Fall Code(s): W19.XXXA - UNSPECIFIED FALL, INITIAL ENCOUNTER Qualifiers: Encounter type: initial encounter Qualified Code(s): W19.XXXA - Unspecified fall, initial encounter (4) HTN (hypertension) Code(s): I10 - ESSENTIAL (PRIMARY) HYPERTENSION (5) Thrombocytopenia Code(s): D69.6 - THROMBOCYTOPENIA, UNSPECIFIED Septic Shock R/O TTP Acute Kidney Injury +Troponins plan continue to monitor off of abx will continue current mgmt scrotal edema wbc trending down monitor
--- NOTE | 2017-10-22 14:09 | PN ---
Progress Note, Physician History of Present Illness: comfortable - Current Medication List Current Medications: Active Medications Acetaminophen (Tylenol -) 325 mg PO Q6H PRN PRN Reason: PAIN LEVEL 6-10 Last Admin: 10/22/17 10:35 Dose: 325 mg Acetaminophen (Tylenol -) 325 mg PO Q6H PRN PRN Reason: PAIN LEVEL 6-10 Allopurinol (Zyloprim -) 100 mg PO DAILY [facility] Last Admin: 10/22/17 10:07 Dose: 100 mg Dexamethasone (Decadron -) 40 mg PO DAILY [facility] Stop: 10/24/17 10:01 Last Admin: 10/22/17 11:58 Dose: 40 mg Famotidine/Sodium Chloride (Pepcid 20 Mg Premixed Ivpb -) 20 mg in 50 mls @ 100 mls/hr IVPB BID [facility] Last Admin: 10/22/17 10:07 Dose: 100 mls/hr Metoprolol Succinate (Toprol Xl -) 25 mg PO DAILY [facility] Last Admin: 10/22/17 10:07 Dose: Not Given Oxycodone HCl (Roxicodone -) 5 mg PO Q6H PRN PRN Reason: PAIN LEVEL 6-10 Last Admin: 10/22/17 10:39 Dose: 5 mg Tamsulosin HCl (Flomax -) 0.4 mg PO DAILY@0830 [facility] Last Admin: 10/22/17 08:23 Dose: 0.4 mg - Objective Vital Signs: Vital Signs Temperature 98 F 10/22/17 10:00 Pulse Rate 76 10/22/17 10:00 Respiratory Rate 20 10/22/17 10:00 Blood Pressure 91/50 10/22/17 10:00 O2 Sat by Pulse Oximetry (%) 96 10/22/17 10:00 Constitutional: Yes: No Distress HENT: Yes: Atraumatic Neck: Yes: Supple Cardiovascular: Yes: Regular Rate and Rhythm Respiratory: Yes: Rhonchi Gastrointestinal: Yes: Normal Bowel Sounds Genitourinary: Yes: Other (scrotal edema not new) Edema: LLE: 1+, RLE: 1+ Neurological: Yes: Alert, Oriented Labs: CBC, BMP 10/22/17 06:35 10/22/17 06:35 INR, PTT INR 0.99 (0.82-1.09) 10/15/17 06:00 Fibrinogen 429.0 mg/dL (238-498) 10/15/17 06:00 Problem List - Problems (1) CKD (chronic kidney disease) Assessment/Plan: cr still high nephro on board Code(s): N18.9 - CHRONIC KIDNEY DISEASE, UNSPECIFIED (2) Dementia Assessment/Plan: stable Code(s): F03.90 - UNSPECIFIED DEMENTIA WITHOUT BEHAVIORAL DISTURBANCE (3) HTN (hypertension) Assessment/Plan: on toprol now Code(s): I10 - ESSENTIAL (PRIMARY) HYPERTENSION (4) Thrombocytopenia Code(s): D69.6 - THROMBOCYTOPENIA, UNSPECIFIED (5) Superficial laceration of face Code(s): S01.81XA - LACERATION W/O FOREIGN BODY OF OTH PART OF HEAD, INIT ENCNTR (6) Leukocytosis Code(s): D72.829 - ELEVATED WHITE BLOOD CELL COUNT, UNSPECIFIED (7) Scrotal edema Assessment/Plan: not new has been there since admission little worse now has conner in, on flomax will get urology consult Code(s): N50.89 - OTHER SPECIFIED DISORDERS OF THE MALE GENITAL ORGANS
--- NOTE | 2017-10-22 17:06 | PN ---
Progress Note (short form) - Note Progress Note: Seen and examined Unable to obtain ROS Cor: RSR, No murmurs, No gallops Lungs: Clear to P&A Abd: Soft, Normal bowel sounds, No organomegaly Ext:+edema Last Vital Signs Temp Pulse Resp BP Pulse Ox 98.1 F 84 22 100/56 96 10/22/17 14:34 10/22/17 14:34 10/22/17 14:34 10/22/17 14:34 10/22/17 10:00 CBC, BMP 10/22/17 06:35 10/22/17 06:35 Current Medications Generic Name Dose Route Start Last Admin Trade Name Freq PRN Reason Stop Dose Admin Acetaminophen 325 mg 10/18/17 10:25 10/22/17 10:35 Tylenol - PO 325 mg Q6H PRN Administration PAIN LEVEL 6-10 Acetaminophen 325 mg 10/21/17 14:09 Tylenol - PO Q6H PRN PAIN LEVEL 6-10 Allopurinol 100 mg 10/21/17 10:00 10/22/17 10:07 Zyloprim - PO 100 mg DAILY [facility] Administration Dexamethasone 40 mg 10/21/17 10:00 10/22/17 11:58 Decadron - PO 10/24/17 10:01 40 mg DAILY [facility] Administration Famotidine/Sodium Chloride 20 mg in 50 mls @ 100 mls/hr 10/18/17 22:00 10:07 Pepcid 20 Mg Premixed Ivpb - IVPB 100 mls/hr BID [facility] Administration Metoprolol Succinate 25 mg 10/19/17 10:00 10/22/17 10:07 Toprol Xl - PO Not Given DAILY [facility] Oxycodone HCl 5 mg 10/21/17 14:09 10/22/17 10:39 Roxicodone - PO 5 mg Q6H PRN Administration PAIN LEVEL 6-10 Tamsulosin HCl 0.4 mg 10/18/17 19:00 10/22/17 08:23 Flomax - PO 0.4 mg DAILY@0830 [facility] Administration 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 JOHANA on CKD Hypotension Unclear baseline CBC The clinical course of LPL is usually indolent. not a candidate for chemo/immuno therapy c/w allopurinol 100mg/d and dex 40mg 2/4 doses given
--- NOTE | 2017-10-22 20:07 | PN ---
Progress Note (short form) - Note Progress Note: Problems 1. JOHANA on chronic 2. s/p fall 3. thrombocytopenia 4. HTN 5. leukocytosis 6. anemia 7. sepsis 8. r/o lymphoproliferative disorder 9. hypernatremia 10. Lopez catheter in place Current Medications Acetaminophen (Tylenol -) 325 mg PO Q6H PRN PRN Reason: PAIN LEVEL 6-10 Last Admin: 10/22/17 10:35 Dose: 325 mg Acetaminophen (Tylenol -) 325 mg PO Q6H PRN PRN Reason: PAIN LEVEL 6-10 Allopurinol (Zyloprim -) 100 mg PO DAILY [facility] Last Admin: 10/22/17 10:07 Dose: 100 mg Dexamethasone (Decadron -) 40 mg PO DAILY [facility] Stop: 10/24/17 10:01 Last Admin: 10/22/17 11:58 Dose: 40 mg Famotidine/Sodium Chloride (Pepcid 20 Mg Premixed Ivpb -) 20 mg in 50 mls @ 100 mls/hr IVPB BID [facility] Last Admin: 10/22/17 10:07 Dose: 100 mls/hr Metoprolol Succinate (Toprol Xl -) 25 mg PO DAILY [facility] Last Admin: 10/22/17 10:07 Dose: Not Given Oxycodone HCl (Roxicodone -) 5 mg PO Q6H PRN PRN Reason: PAIN LEVEL 6-10 Last Admin: 10/22/17 10:39 Dose: 5 mg Tamsulosin HCl (Flomax -) 0.4 mg PO DAILY@0830 [facility] Last Admin: 10/22/17 08:23 Dose: 0.4 mg Last Vital Signs Temp Pulse Resp BP Pulse Ox 97.3 F L 100 H 22 129/75 96 10/22/17 18:43 10/22/17 18:43 10/22/17 18:43 10/22/17 18:43 10/22/17 10:00 alert and confused Lungs clear heart reg abd osft nontender ext khushboo edema CBC, BMP 10/22/17 06:35 10/22/17 06:35 IMP- ckd? stable renal function since admission Waldenstrom Lymphoproliferative disorder OBS Plan - cont d5w - cont to monitor renal function -ensure hydration
[2017-10-23] MEDS: TAMSULOSIN HCL 0.4 MG CAP.ER.24H (FP) PO SCH (09:06)
[2017-10-23] MEDS: oxyCODONE HCL 5 MG TABLET PO PRN (09:10)
[2017-10-23] MEDS: ACETAMINOPHEN 325 MG TABLET (FP) PO PRN (09:20)
--- NOTE | 2017-10-23 09:32 | PN ---
Progress Note (short form) - Note Progress Note: PULMONARY AWAKE/ALERT OFFERS NO RESP COMPLAINTS VSS/AFEBRILE Gen: NAD at rest, Heart: RRR Lung: decreased breath sounds at the bases Abd: soft, nontender Ext: LLE weeping ulcers, ecchymosis LABS/MEDS/NOTES/IMAGES REVIEWED Septic Shock resolved LPL/Waldenstrom's Anemia/Thrombocytopenia Acute Kidney Injury +Troponins - Off ABX - Local wound care per surgery - Hematology work up ongoing - Normal transfusion thresholds -- Would remove conner and start voiding trials Paige STARR MD
--- NOTE | 2017-10-23 10:13 | PN ---
Progress Note, Physician History of Present Illness: patient stable no new issues - Current Medication List Current Medications: Active Medications Acetaminophen (Tylenol -) 325 mg PO Q6H PRN PRN Reason: PAIN LEVEL 6-10 Last Admin: 10/23/17 09:20 Dose: 325 mg Acetaminophen (Tylenol -) 325 mg PO Q6H PRN PRN Reason: PAIN LEVEL 6-10 Allopurinol (Zyloprim -) 100 mg PO DAILY [facility] Last Admin: 10/22/17 10:07 Dose: 100 mg Dexamethasone (Decadron -) 40 mg PO DAILY [facility] Stop: 10/24/17 10:01 Last Admin: 10/22/17 11:58 Dose: 40 mg Famotidine/Sodium Chloride (Pepcid 20 Mg Premixed Ivpb -) 20 mg in 50 mls @ 100 mls/hr IVPB BID [facility] Last Admin: 10/22/17 21:27 Dose: 100 mls/hr Metoprolol Succinate (Toprol Xl -) 25 mg PO DAILY [facility] Last Admin: 10/22/17 10:07 Dose: Not Given Oxycodone HCl (Roxicodone -) 5 mg PO Q6H PRN PRN Reason: PAIN LEVEL 6-10 Last Admin: 10/23/17 09:10 Dose: 5 mg Tamsulosin HCl (Flomax -) 0.4 mg PO DAILY@0830 [facility] Last Admin: 10/23/17 09:06 Dose: 0.4 mg - Objective Vital Signs: Vital Signs Temperature 98.2 F 10/23/17 06:00 Pulse Rate 82 10/23/17 06:00 Respiratory Rate 20 10/23/17 06:00 Blood Pressure 123/70 10/23/17 06:00 O2 Sat by Pulse Oximetry (%) 96 10/22/17 21:00 Constitutional: Yes: No Distress, Calm Neck: Yes: Supple Cardiovascular: Yes: Regular Rate and Rhythm Respiratory: Yes: Regular, CTA Bilaterally Gastrointestinal: Yes: Normal Bowel Sounds, Soft Genitourinary: Yes: Lopez Present, Scrotal Edema Musculoskeletal: Yes: Other Extremities: Yes: Other Integumentary: Yes: Rash, Skin Tear Neurological: Yes: Alert Psychiatric: Yes: Alert Labs: CBC, BMP 10/22/17 06:35 10/22/17 06:35 INR, PTT INR 0.99 (0.82-1.09) 10/15/17 06:00 Fibrinogen 429.0 mg/dL (238-498) 10/15/17 06:00 Assessment/Plan Problem List - Problems (1) CKD (chronic kidney disease) Code(s): N18.9 - CHRONIC KIDNEY DISEASE, UNSPECIFIED (2) Dementia Code(s): F03.90 - UNSPECIFIED DEMENTIA WITHOUT BEHAVIORAL DISTURBANCE (3) Fall Code(s): W19.XXXA - UNSPECIFIED FALL, INITIAL ENCOUNTER Qualifiers: Encounter type: initial encounter Qualified Code(s): W19.XXXA - Unspecified fall, initial encounter (4) HTN (hypertension) Code(s): I10 - ESSENTIAL (PRIMARY) HYPERTENSION (5) Thrombocytopenia Code(s): D69.6 - THROMBOCYTOPENIA, UNSPECIFIED Septic Shock R/O TTP Acute Kidney Injury +Troponins plan continue to monitor off of abx will continue current mgmt scrotal edema monitor
[2017-10-23] MEDS: metoPROLOL SUCCINATE 25 MG TAB.SR.24H (FP) PO SCH (10:43)
[2017-10-23] MEDS: ALLOPURINOL 100 MG TABLET (FP) PO SCH (10:43)
[2017-10-23] MEDS: FAMOTIDINE 20 MG/50 ML IVPB 20 MG/50 ML MG IVPB SCH ×2 (10:43→23:23)
[2017-10-23] MEDS: DEXAMETHASONE 4 MG TABLET (FP) PO SCH (10:44)
--- NOTE | 2017-10-23 13:15 | PN ---
Progress Note, Physician History of Present Illness: comfortable - Current Medication List Current Medications: Active Medications Acetaminophen (Tylenol -) 325 mg PO Q6H PRN PRN Reason: PAIN LEVEL 6-10 Last Admin: 10/23/17 09:20 Dose: 325 mg Acetaminophen (Tylenol -) 325 mg PO Q6H PRN PRN Reason: PAIN LEVEL 6-10 Allopurinol (Zyloprim -) 100 mg PO DAILY [facility] Last Admin: 10/23/17 10:43 Dose: 100 mg Dexamethasone (Decadron -) 40 mg PO DAILY [facility] Stop: 10/24/17 10:01 Last Admin: 10/23/17 10:44 Dose: 40 mg Famotidine/Sodium Chloride (Pepcid 20 Mg Premixed Ivpb -) 20 mg in 50 mls @ 100 mls/hr IVPB BID [facility] Last Admin: 10/23/17 10:43 Dose: 100 mls/hr Metoprolol Succinate (Toprol Xl -) 25 mg PO DAILY [facility] Last Admin: 10/23/17 10:43 Dose: 25 mg Oxycodone HCl (Roxicodone -) 5 mg PO Q6H PRN PRN Reason: PAIN LEVEL 6-10 Last Admin: 10/23/17 09:10 Dose: 5 mg Tamsulosin HCl (Flomax -) 0.4 mg PO DAILY@0830 [facility] Last Admin: 10/23/17 09:06 Dose: 0.4 mg - Objective Vital Signs: Vital Signs Temperature 97.4 F L 10/23/17 10:12 Pulse Rate 95 H 10/23/17 10:12 Respiratory Rate 20 10/23/17 10:12 Blood Pressure 114/57 10/23/17 10:12 O2 Sat by Pulse Oximetry (%) 96 10/22/17 21:00 Constitutional: Yes: No Distress HENT: Yes: Atraumatic Neck: Yes: Supple Cardiovascular: Yes: Regular Rate and Rhythm Respiratory: Yes: Rhonchi Gastrointestinal: Yes: Normal Bowel Sounds Extremities: Yes: WNL Edema: Yes Edema: LLE: 1+, RLE: 1+ Neurological: Yes: Alert, Oriented Labs: CBC, BMP 10/22/17 06:35 10/22/17 06:35 INR, PTT INR 0.99 (0.82-1.09) 10/15/17 06:00 Fibrinogen 429.0 mg/dL (238-498) 10/15/17 06:00 Problem List - Problems (1) CKD (chronic kidney disease) Assessment/Plan: cr still high ivf nephro on board Code(s): N18.9 - CHRONIC KIDNEY DISEASE, UNSPECIFIED (2) Dementia Assessment/Plan: stable Code(s): F03.90 - UNSPECIFIED DEMENTIA WITHOUT BEHAVIORAL DISTURBANCE (3) HTN (hypertension) Assessment/Plan: on toprol now Code(s): I10 - ESSENTIAL (PRIMARY) HYPERTENSION (4) Thrombocytopenia Code(s): D69.6 - THROMBOCYTOPENIA, UNSPECIFIED (5) Superficial laceration of face Code(s): S01.81XA - LACERATION W/O FOREIGN BODY OF OTH PART OF HEAD, INIT ENCNTR (6) Leukocytosis Code(s): D72.829 - ELEVATED WHITE BLOOD CELL COUNT, UNSPECIFIED (7) Scrotal edema Assessment/Plan: not new has been there since admission has conner in, on flomax awaiting urology Code(s): N50.89 - OTHER SPECIFIED DISORDERS OF THE MALE GENITAL ORGANS
[2017-10-23 15:51] LABS: ANION GAP 9 (8-16); BLOOD UREA NITROGEN 67 mg/dL (7-18); CALCIUM 7.7 mg/dL (8.5-10.1); CHLORIDE 103 mmol/L (98-107); CO2 24 mmol/L (21-32); CREATININE 2.1 mg/dL (0.7-1.3); GLUCOSE,RANDOM 195 mg/dL (74-106); SODIUM 136 mmol/L (136-145)
--- NOTE | 2017-10-23 19:08 | PN ---
Progress Note (short form) - Note Progress Note: Seen and examined Unable to obtain ROS condition similar to yesterday Cor: RSR, No murmurs, No gallops Lungs: Clear to P&A Abd: Soft, Normal bowel sounds, No organomegaly Ext:+edema Last Vital Signs Temp Pulse Resp BP Pulse Ox 97.8 F 94 H 20 131/68 96 10/23/17 17:31 10/23/17 17:31 10/23/17 17:31 10/23/17 17:31 10/22/17 21:00 CBC, BMP 10/22/17 06:35 10/23/17 14:30 Current Medications Generic Name Dose Route Start Last Admin Trade Name Freq PRN Reason Stop Dose Admin Acetaminophen 325 mg 10/18/17 10:25 10/23/17 09:20 Tylenol - PO 325 mg Q6H PRN Administration PAIN LEVEL 6-10 Acetaminophen 325 mg 10/21/17 14:09 Tylenol - PO Q6H PRN PAIN LEVEL 6-10 Allopurinol 100 mg 10/21/17 10:00 10/23/17 10:43 Zyloprim - PO 100 mg DAILY [facility] Administration Dexamethasone 40 mg 10/21/17 10:00 10/23/17 10:44 Decadron - PO 10/24/17 10:01 40 mg DAILY [facility] Administration Famotidine/Sodium Chloride 20 mg in 50 mls @ 100 mls/hr 10/18/17 22:00 10:43 Pepcid 20 Mg Premixed Ivpb - IVPB 100 mls/hr BID [facility] Administration Metoprolol Succinate 25 mg 10/19/17 10:00 10/23/17 10:43 Toprol Xl - PO 25 mg DAILY [facility] Administration Oxycodone HCl 5 mg 10/21/17 14:09 10/23/17 09:10 Roxicodone - PO 5 mg Q6H PRN Administration PAIN LEVEL 6-10 Tamsulosin HCl 0.4 mg 10/18/17 19:00 10/23/17 09:06 Flomax - PO 0.4 mg DAILY@0830 [facility] Administration 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 JOHANA on CKD Hypotension Unclear baseline CBC The clinical course of LPL is usually indolent. not a candidate for chemo/immuno therapy c/w allopurinol 100mg/d and dex 40mg 3/4 doses given
--- NOTE | 2017-10-23 22:18 | PN ---
Progress Note (short form) - Note Progress Note: Problems 1. JOHANA on chronic 2. s/p fall 3. thrombocytopenia 4. HTN 5. leukocytosis 6. anemia 7. sepsis 8. r/o lymphoproliferative disorder 9. hypernatremia 10. Lopez catheter in place Current Medications Acetaminophen (Tylenol -) 325 mg PO Q6H PRN PRN Reason: PAIN LEVEL 6-10 Last Admin: 10/23/17 09:20 Dose: 325 mg Acetaminophen (Tylenol -) 325 mg PO Q6H PRN PRN Reason: PAIN LEVEL 6-10 Allopurinol (Zyloprim -) 100 mg PO DAILY [facility] Last Admin: 10/23/17 10:43 Dose: 100 mg Dexamethasone (Decadron -) 40 mg PO DAILY [facility] Stop: 10/24/17 10:01 Last Admin: 10/23/17 10:44 Dose: 40 mg Famotidine/Sodium Chloride (Pepcid 20 Mg Premixed Ivpb -) 20 mg in 50 mls @ 100 mls/hr IVPB BID [facility] Last Admin: 10/23/17 10:43 Dose: 100 mls/hr Metoprolol Succinate (Toprol Xl -) 25 mg PO DAILY [facility] Last Admin: 10/23/17 10:43 Dose: 25 mg Oxycodone HCl (Roxicodone -) 5 mg PO Q6H PRN PRN Reason: PAIN LEVEL 6-10 Last Admin: 10/23/17 09:10 Dose: 5 mg Tamsulosin HCl (Flomax -) 0.4 mg PO DAILY@0830 [facility] Last Admin: 10/23/17 09:06 Dose: 0.4 mg Last Vital Signs Temp Pulse Resp BP Pulse Ox 97.8 F 94 H 20 131/68 96 10/23/17 17:31 10/23/17 17:31 10/23/17 17:31 10/23/17 17:31 10/23/17 10:05 alert and confused Lungs clear heart reg abd osft nontender ext khushboo edema CBC, [facility] 10/22/17 06:35 10/23/17 14:30 IMP- ckd? stable renal function since admission Waldenstrom Lymphoproliferative disorder OBS Plan - follow up bmp in am
[2017-10-24 08:11] LABS: BASO % 0.6 % (0-2.0); HEMATOCRIT 28.1 % (35.4-49); HEMOGLOBIN 8.9 GM/dL (11.7-16.9); LYMPH % 71.7 % (8-40); MCH 31.3 pg (25.7-33.7); MCHC 31.8 g/dl (32.0-35.9); MEAN CELL VOLUME 98.6 fl (80-96); MEAN PLT VOLUME 8.7 fl (7.5-11.1); MONO % 1.7 % (3.8-10.2); PLATELET COUNT 137 K/MM3 (134-434); RBC 2.85 M/mm3 (4.00-5.60); RDW 15.7 % (11.9-15.9)
[2017-10-24 08:39] LABS: CHLORIDE 106 mmol/L (98-107); SODIUM 140 mmol/L (136-145)
[2017-10-24 08:53] LABS: ANION GAP 8 (8-16); BLOOD UREA NITROGEN 72 mg/dL (7-18); CALCIUM 7.7 mg/dL (8.5-10.1); CO2 26 mmol/L (21-32); GLUCOSE,RANDOM 120 mg/dL (74-106)
[2017-10-24 09:26] LABS: ACANTHOCYTES 0; ANISOCYTOSIS 0; HELMET CELLS 0; HOWELL-JOLLY BODIES 0; MACROCYTOSIS 0; OVALOCYTE 0; PLATELET ESTIMATE DECREASED; ROULEAU 0; SICKELED CELLS 0; TARGET CELLS 0; TEAR DROP CELLS 0; TOXIC GRANULATION 0
[2017-10-24] MEDS: FAMOTIDINE 20 MG/50 ML IVPB 20 MG/50 ML MG IVPB SCH ×2 (09:42→22:19)
[2017-10-24] MEDS: TAMSULOSIN HCL 0.4 MG CAP.ER.24H (FP) PO SCH (09:43)
[2017-10-24] MEDS: metoPROLOL SUCCINATE 25 MG TAB.SR.24H (FP) PO SCH (09:43)
[2017-10-24] MEDS: ALLOPURINOL 100 MG TABLET (FP) PO SCH (09:43)
--- NOTE | 2017-10-24 11:29 | PN ---
Progress Note, Physician History of Present Illness: no new issues awaiting final plan - Current Medication List Current Medications: Active Medications Acetaminophen (Tylenol -) 325 mg PO Q6H PRN PRN Reason: PAIN LEVEL 6-10 Last Admin: 10/23/17 09:20 Dose: 325 mg Acetaminophen (Tylenol -) 325 mg PO Q6H PRN PRN Reason: PAIN LEVEL 6-10 Allopurinol (Zyloprim -) 100 mg PO DAILY [facility] Last Admin: 10/24/17 09:43 Dose: 100 mg Famotidine/Sodium Chloride (Pepcid 20 Mg Premixed Ivpb -) 20 mg in 50 mls @ 100 mls/hr IVPB BID [facility] Last Admin: 10/24/17 09:42 Dose: 100 mls/hr Metoprolol Succinate (Toprol Xl -) 25 mg PO DAILY [facility] Last Admin: 10/24/17 09:43 Dose: 25 mg Oxycodone HCl (Roxicodone -) 5 mg PO Q6H PRN PRN Reason: PAIN LEVEL 6-10 Last Admin: 10/23/17 09:10 Dose: 5 mg Tamsulosin HCl (Flomax -) 0.4 mg PO DAILY@0830 [facility] Last Admin: 10/24/17 09:43 Dose: 0.4 mg - Objective Vital Signs: Vital Signs Temperature 97.5 F L 10/24/17 05:00 Pulse Rate 84 10/24/17 05:00 Respiratory Rate 20 10/24/17 05:00 Blood Pressure 118/66 10/24/17 05:00 O2 Sat by Pulse Oximetry (%) 96 10/23/17 10:05 Constitutional: Yes: No Distress, Calm Cardiovascular: Yes: Regular Rate and Rhythm Respiratory: Yes: Regular, CTA Bilaterally Gastrointestinal: Yes: Normal Bowel Sounds, Soft Genitourinary: Yes: Lopez Present, Scrotal Edema Musculoskeletal: Yes: Other Extremities: Yes: Other Neurological: Yes: Alert Psychiatric: Yes: Other Labs: CBC, BMP 10/24/17 07:55 10/24/17 07:55 INR, PTT INR 0.99 (0.82-1.09) 10/15/17 06:00 Fibrinogen 429.0 mg/dL (238-498) 10/15/17 06:00 Assessment/Plan Problem List - Problems (1) CKD (chronic kidney disease) Code(s): N18.9 - CHRONIC KIDNEY DISEASE, UNSPECIFIED (2) Dementia Code(s): F03.90 - UNSPECIFIED DEMENTIA WITHOUT BEHAVIORAL DISTURBANCE (3) Fall Code(s): W19.XXXA - UNSPECIFIED FALL, INITIAL ENCOUNTER Qualifiers: Encounter type: initial encounter Qualified Code(s): W19.XXXA - Unspecified fall, initial encounter (4) HTN (hypertension) Code(s): I10 - ESSENTIAL (PRIMARY) HYPERTENSION (5) Thrombocytopenia Code(s): D69.6 - THROMBOCYTOPENIA, UNSPECIFIED Septic Shock R/O TTP Acute Kidney Injury +Troponins plan continue to monitor off of abx will continue current mgmt monitor wbc rest as per the team await for urology to see the patient
[2017-10-24] MEDS: DEXAMETHASONE 4 MG TABLET (FP) PO SCH (12:09)
--- NOTE | 2017-10-24 20:30 | PN ---
Progress Note, Physician History of Present Illness: comfortable - Current Medication List Current Medications: Active Medications Acetaminophen (Tylenol -) 325 mg PO Q6H PRN PRN Reason: PAIN LEVEL 6-10 Last Admin: 10/23/17 09:20 Dose: 325 mg Acetaminophen (Tylenol -) 325 mg PO Q6H PRN PRN Reason: PAIN LEVEL 6-10 Allopurinol (Zyloprim -) 100 mg PO DAILY [facility] Last Admin: 10/24/17 09:43 Dose: 100 mg Famotidine/Sodium Chloride (Pepcid 20 Mg Premixed Ivpb -) 20 mg in 50 mls @ 100 mls/hr IVPB BID [facility] Last Admin: 10/24/17 09:42 Dose: 100 mls/hr Metoprolol Succinate (Toprol Xl -) 25 mg PO DAILY [facility] Last Admin: 10/24/17 09:43 Dose: 25 mg Tamsulosin HCl (Flomax -) 0.4 mg PO DAILY@0830 [facility] Last Admin: 10/24/17 09:43 Dose: 0.4 mg - Objective Vital Signs: Vital Signs Temperature 98.0 F 10/24/17 16:02 Pulse Rate 85 10/24/17 16:02 Respiratory Rate 18 10/24/17 16:02 Blood Pressure 119/61 10/24/17 16:02 O2 Sat by Pulse Oximetry (%) 94 L 10/24/17 09:00 Constitutional: Yes: Calm HENT: Yes: Atraumatic Neck: Yes: Supple Cardiovascular: Yes: Regular Rate and Rhythm Respiratory: Yes: CTA Bilaterally Gastrointestinal: Yes: Normal Bowel Sounds Extremities: Yes: WNL Edema: Yes Neurological: Yes: Alert Labs: CBC, BMP 10/24/17 07:55 10/24/17 07:55 INR, PTT INR 0.99 (0.82-1.09) 10/15/17 06:00 Fibrinogen 429.0 mg/dL (238-498) 10/15/17 06:00 Problem List - Problems (1) CKD (chronic kidney disease) Assessment/Plan: cr much improved Code(s): N18.9 - CHRONIC KIDNEY DISEASE, UNSPECIFIED (2) Dementia Assessment/Plan: stable Code(s): F03.90 - UNSPECIFIED DEMENTIA WITHOUT BEHAVIORAL DISTURBANCE (3) HTN (hypertension) Assessment/Plan: on toprol now Code(s): I10 - ESSENTIAL (PRIMARY) HYPERTENSION (4) Thrombocytopenia Assessment/Plan: monitor hematology on board Code(s): D69.6 - THROMBOCYTOPENIA, UNSPECIFIED (5) Superficial laceration of face Code(s): S01.81XA - LACERATION W/O FOREIGN BODY OF OTH PART OF HEAD, INIT ENCNTR (6) Leukocytosis Assessment/Plan: oncology note reviewed lymphoma ? Code(s): D72.829 - ELEVATED WHITE BLOOD CELL COUNT, UNSPECIFIED (7) Scrotal edema Assessment/Plan: not new has been there since admission d conner on flomax awaiting urology Code(s): N50.89 - OTHER SPECIFIED DISORDERS OF THE MALE GENITAL ORGANS Assessment/Plan will dc conner voiding trials
--- NOTE | 2017-10-24 21:21 | PN ---
Progress Note (short form) - Note Progress Note: Problems 1. JOHANA on chronic 2. s/p fall 3. thrombocytopenia 4. HTN 5. leukocytosis 6. anemia 7. sepsis 8. r/o lymphoproliferative disorder 9. hypernatremia 10. Conner catheter in place Current Medications Acetaminophen (Tylenol -) 325 mg PO Q6H PRN PRN Reason: PAIN LEVEL 6-10 Last Admin: 10/23/17 09:20 Dose: 325 mg Acetaminophen (Tylenol -) 325 mg PO Q6H PRN PRN Reason: PAIN LEVEL 6-10 Allopurinol (Zyloprim -) 100 mg PO DAILY [facility] Last Admin: 10/24/17 09:43 Dose: 100 mg Famotidine/Sodium Chloride (Pepcid 20 Mg Premixed Ivpb -) 20 mg in 50 mls @ 100 mls/hr IVPB BID [facility] Last Admin: 10/24/17 09:42 Dose: 100 mls/hr Metoprolol Succinate (Toprol Xl -) 25 mg PO DAILY [facility] Last Admin: 10/24/17 09:43 Dose: 25 mg Tamsulosin HCl (Flomax -) 0.4 mg PO DAILY@0830 [facility] Last Admin: 10/24/17 09:43 Dose: 0.4 mg Last Vital Signs Temp Pulse Resp BP Pulse Ox 98.0 F 85 18 119/61 94 L 10/24/17 16:02 10/24/17 16:02 10/24/17 16:02 10/24/17 16:02 10/24/17 09:00 alert and more coherent and talkative Lungs clear heart reg abd osft nontender ext khushboo edema CBC, BMP 10/24/17 07:55 10/24/17 07:55 IMP- ckd? stable renal function since admission Waldenstrom Lymphoproliferative disorder OBS leg edema 2/2 hypoalbuminemia Plan - agree with trial off conner catheter
[2017-10-25 07:58] LABS: CHLORIDE 107 mmol/L (98-107); POTASSIUM 4.8 mmol/L (3.5-5.1); SODIUM 142 mmol/L (136-145)
[2017-10-25 08:23] LABS: ALBUMIN 1.7 g/dl (3.4-5.0); ALK PHOS 194 U/L (45-117); ANION GAP 8 (8-16); BILIRUBIN,TOTAL 0.9 mg/dL (0.2-1.0); BLOOD UREA NITROGEN 79 mg/dL (7-18); CALCIUM 8.3 mg/dL (8.5-10.1); CO2 27 mmol/L (21-32); GLUCOSE,RANDOM 133 mg/dL (74-106); SGOT/AST 47 U/L (15-37); SGPT/ALT 64 U/L (12-78); TOT PROT 6.4 g/dl (6.4-8.2)
[2017-10-25] MEDS: TAMSULOSIN HCL 0.4 MG CAP.ER.24H (FP) PO SCH (08:38)
[2017-10-25] MEDS: FAMOTIDINE 20 MG/50 ML IVPB 20 MG/50 ML MG IVPB SCH (10:42)
[2017-10-25] MEDS: metoPROLOL SUCCINATE 25 MG TAB.SR.24H (FP) PO SCH (10:42)
[2017-10-25] MEDS: ALLOPURINOL 100 MG TABLET (FP) PO SCH (10:42)
--- NOTE | 2017-10-25 12:32 | PN ---
Progress Note, Physician History of Present Illness: no new issues awaiting final plan comfortable - Current Medication List Current Medications: Active Medications Acetaminophen (Tylenol -) 325 mg PO Q6H PRN PRN Reason: PAIN LEVEL 6-10 Last Admin: 10/23/17 09:20 Dose: 325 mg Acetaminophen (Tylenol -) 325 mg PO Q6H PRN PRN Reason: PAIN LEVEL 6-10 Allopurinol (Zyloprim -) 100 mg PO DAILY [facility] Last Admin: 10/25/17 10:42 Dose: 100 mg Famotidine/Sodium Chloride (Pepcid 20 Mg Premixed Ivpb -) 20 mg in 50 mls @ 100 mls/hr IVPB BID [facility] Last Admin: 10/25/17 10:42 Dose: 100 mls/hr Metoprolol Succinate (Toprol Xl -) 25 mg PO DAILY [facility] Last Admin: 10/25/17 10:42 Dose: 25 mg Tamsulosin HCl (Flomax -) 0.4 mg PO DAILY@0830 [facility] Last Admin: 10/25/17 08:38 Dose: 0.4 mg - Objective Vital Signs: Vital Signs Temperature 97.9 F 10/25/17 10:37 Pulse Rate 98 H 10/25/17 10:37 Respiratory Rate 20 10/25/17 10:37 Blood Pressure 111/59 10/25/17 10:37 O2 Sat by Pulse Oximetry (%) 94 L 10/24/17 21:00 Constitutional: Yes: No Distress, Calm Cardiovascular: Yes: Regular Rate and Rhythm Respiratory: Yes: Regular, CTA Bilaterally Gastrointestinal: Yes: Normal Bowel Sounds, Soft Musculoskeletal: Yes: Other Extremities: Yes: Other Integumentary: Yes: Skin Tear Neurological: Yes: Alert, Other Labs: CBC, BMP 10/24/17 07:55 10/25/17 06:20 INR, PTT INR 0.99 (0.82-1.09) 10/15/17 06:00 Fibrinogen 429.0 mg/dL (238-498) 10/15/17 06:00 Assessment/Plan Problem List - Problems (1) CKD (chronic kidney disease) Code(s): N18.9 - CHRONIC KIDNEY DISEASE, UNSPECIFIED (2) Dementia Code(s): F03.90 - UNSPECIFIED DEMENTIA WITHOUT BEHAVIORAL DISTURBANCE (3) Fall Code(s): W19.XXXA - UNSPECIFIED FALL, INITIAL ENCOUNTER Qualifiers: Encounter type: initial encounter Qualified Code(s): W19.XXXA - Unspecified fall, initial encounter (4) HTN (hypertension) Code(s): I10 - ESSENTIAL (PRIMARY) HYPERTENSION (5) Thrombocytopenia Code(s): D69.6 - THROMBOCYTOPENIA, UNSPECIFIED Septic Shock R/O TTP Acute Kidney Injury +Troponins plan continue to monitor off of abx will continue current mgmt monitor wbc rest as per the team await for urology to see the patient
--- NOTE | 2017-10-25 13:07 | PN ---
Progress Note, Physician History of Present Illness: PULMONARY ALERT,NAD,-SOB - Current Medication List Current Medications: Active Medications Acetaminophen (Tylenol -) 325 mg PO Q6H PRN PRN Reason: PAIN LEVEL 6-10 Last Admin: 10/23/17 09:20 Dose: 325 mg Acetaminophen (Tylenol -) 325 mg PO Q6H PRN PRN Reason: PAIN LEVEL 6-10 Allopurinol (Zyloprim -) 100 mg PO DAILY [facility] Last Admin: 10/25/17 10:42 Dose: 100 mg Famotidine/Sodium Chloride (Pepcid 20 Mg Premixed Ivpb -) 20 mg in 50 mls @ 100 mls/hr IVPB BID [facility] Last Admin: 10/25/17 10:42 Dose: 100 mls/hr Metoprolol Succinate (Toprol Xl -) 25 mg PO DAILY [facility] Last Admin: 10/25/17 10:42 Dose: 25 mg Tamsulosin HCl (Flomax -) 0.4 mg PO DAILY@0830 [facility] Last Admin: 10/25/17 08:38 Dose: 0.4 mg - Objective Vital Signs: Vital Signs Temperature 97.9 F 10/25/17 10:37 Pulse Rate 98 H 10/25/17 10:37 Respiratory Rate 20 10/25/17 10:37 Blood Pressure 111/59 10/25/17 10:37 O2 Sat by Pulse Oximetry (%) 94 L 10/24/17 21:00 Constitutional: Yes: Calm, Thin Eyes: Yes: WNL HENT: Yes: WNL Neck: Yes: WNL Cardiovascular: Yes: Regular Rate and Rhythm, S1, S2 Respiratory: Yes: Diminished Gastrointestinal: Yes: Normal Bowel Sounds, Soft Extremities: Yes: WNL Edema: No Labs: CBC, BMP 10/24/17 07:55 10/25/17 06:20 INR, PTT INR 0.99 (0.82-1.09) 10/15/17 06:00 Fibrinogen 429.0 mg/dL (238-498) 10/15/17 06:00 Problem List - Problems (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 - WALDENSTROM MACROGLOBULINEMIA (2) JOHANA (acute kidney injury) Code(s): N17.9 - ACUTE KIDNEY FAILURE, UNSPECIFIED (3) HTN (hypertension) Code(s): I10 - ESSENTIAL (PRIMARY) HYPERTENSION (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
--- NOTE | 2017-10-25 14:26 | PN ---
Progress Note, Physician History of Present Illness: Pt seen and examined at bedside. He is awake and remains confused. - Current Medication List Current Medications: Active Medications Acetaminophen (Tylenol -) 325 mg PO Q6H PRN PRN Reason: PAIN LEVEL 6-10 Last Admin: 10/23/17 09:20 Dose: 325 mg Acetaminophen (Tylenol -) 325 mg PO Q6H PRN PRN Reason: PAIN LEVEL 6-10 Allopurinol (Zyloprim -) 100 mg PO DAILY [facility] Last Admin: 10/25/17 10:42 Dose: 100 mg Famotidine/Sodium Chloride (Pepcid 20 Mg Premixed Ivpb -) 20 mg in 50 mls @ 100 mls/hr IVPB BID [facility] Last Admin: 10/25/17 10:42 Dose: 100 mls/hr Metoprolol Succinate (Toprol Xl -) 25 mg PO DAILY [facility] Last Admin: 10/25/17 10:42 Dose: 25 mg Tamsulosin HCl (Flomax -) 0.4 mg PO DAILY@0830 [facility] Last Admin: 10/25/17 08:38 Dose: 0.4 mg - Objective Vital Signs: Vital Signs Temperature 97.9 F 10/25/17 10:37 Pulse Rate 98 H 10/25/17 10:37 Respiratory Rate 20 10/25/17 10:37 Blood Pressure 111/59 10/25/17 10:37 O2 Sat by Pulse Oximetry (%) 94 L 10/24/17 21:00 Constitutional: Yes: Calm Eyes: Yes: Conjunctiva Clear Cardiovascular: Yes: S1, S2 Respiratory: Yes: CTA Bilaterally Gastrointestinal: Yes: Soft Genitourinary: Yes: Lopez Present Musculoskeletal: Yes: WNL Edema: LLE: Trace, RLE: Trace Neurological: Yes: Confusion, Pre-Existing Deficit Labs: CBC, BMP 10/24/17 07:55 10/25/17 06:20 INR, PTT INR 0.99 (0.82-1.09) 10/15/17 06:00 Fibrinogen 429.0 mg/dL (238-498) 10/15/17 06:00 Problem List - Problems (1) CKD (chronic kidney disease) Code(s): N18.9 - CHRONIC KIDNEY DISEASE, UNSPECIFIED (2) Dementia Code(s): F03.90 - UNSPECIFIED DEMENTIA WITHOUT BEHAVIORAL DISTURBANCE (3) Fall Code(s): W19.XXXA - UNSPECIFIED FALL, INITIAL ENCOUNTER Qualifiers: Encounter type: initial encounter Qualified Code(s): W19.XXXA - Unspecified fall, initial encounter (4) HTN (hypertension) Code(s): I10 - ESSENTIAL (PRIMARY) HYPERTENSION (5) Thrombocytopenia Code(s): D69.6 - THROMBOCYTOPENIA, UNSPECIFIED Assessment/Plan Current Medications Generic Name Dose Route Start Last Admin Trade Name Freq PRN Reason Stop Dose Admin Acetaminophen 325 mg 10/18/17 10:25 10/23/17 09:20 Tylenol - PO 325 mg Q6H PRN Administration PAIN LEVEL 6-10 Acetaminophen 325 mg 10/21/17 14:09 Tylenol - PO Q6H PRN PAIN LEVEL 6-10 Allopurinol 100 mg 10/21/17 10:00 10/25/17 10:42 Zyloprim - PO 100 mg DAILY [facility] Administration Famotidine/Sodium Chloride 20 mg in 50 mls @ 100 mls/hr 10/18/17 22:00 10:42 Pepcid 20 Mg Premixed Ivpb - IVPB 100 mls/hr BID [facility] Administration Metoprolol Succinate 25 mg 10/19/17 10:00 10/25/17 10:42 Toprol Xl - PO 25 mg DAILY [facility] Administration Tamsulosin HCl 0.4 mg 10/18/17 19:00 10/25/17 08:38 Flomax - PO 0.4 mg DAILY@0830 [facility] Administration Laboratory Tests 10/14/17 05:30 KRYS Screen Negative c-ANCA <1:20 Proteinase 3 (PR3) <3.5 p-ANCA <1:20 Atypical p-ANCA <1:20 Myeloperoxidase Ab <9.0 Double Strand DNA Ab <1 Glomerular Base Memb Ab 5 Impression 1. SHILA 2. s/p fall 3. thrombocytopenia 4. HTN 5. leukocytosis 6. anemia 7. sepsis 8. r/o lymphoproliferative disorder 9. hypernatremia 10. CKD Plan - renal function has stabilized with a travel service consultant of about 2 - cont current management - monitor cbc - oncology input appreciated - shila likely from sepsis and hypotension
--- NOTE | 2017-10-25 16:20 | PN ---
Progress Note, Physician History of Present Illness: pt voided in diaper - Current Medication List Current Medications: Active Medications Acetaminophen (Tylenol -) 325 mg PO Q6H PRN PRN Reason: PAIN LEVEL 6-10 Last Admin: 10/23/17 09:20 Dose: 325 mg Acetaminophen (Tylenol -) 325 mg PO Q6H PRN PRN Reason: PAIN LEVEL 6-10 Allopurinol (Zyloprim -) 100 mg PO DAILY [facility] Last Admin: 10/25/17 10:42 Dose: 100 mg Famotidine/Sodium Chloride (Pepcid 20 Mg Premixed Ivpb -) 20 mg in 50 mls @ 100 mls/hr IVPB BID [facility] Last Admin: 10/25/17 10:42 Dose: 100 mls/hr Metoprolol Succinate (Toprol Xl -) 25 mg PO DAILY [facility] Last Admin: 10/25/17 10:42 Dose: 25 mg Tamsulosin HCl (Flomax -) 0.4 mg PO DAILY@0830 [facility] Last Admin: 10/25/17 08:38 Dose: 0.4 mg - Objective Vital Signs: Vital Signs Temperature 97.5 F L 10/25/17 14:28 Pulse Rate 99 H 10/25/17 14:28 Respiratory Rate 18 10/25/17 14:28 Blood Pressure 122/68 10/25/17 14:28 O2 Sat by Pulse Oximetry (%) 94 L 10/24/17 21:00 Constitutional: Yes: No Distress HENT: Yes: Atraumatic Neck: Yes: Supple Cardiovascular: Yes: Regular Rate and Rhythm Respiratory: Yes: CTA Bilaterally Gastrointestinal: Yes: Normal Bowel Sounds Edema: Yes Edema: LLE: 1+, RLE: 1+ Neurological: Yes: Alert Labs: CBC, BMP 10/24/17 07:55 10/25/17 06:20 INR, PTT INR 0.99 (0.82-1.09) 10/15/17 06:00 Fibrinogen 429.0 mg/dL (238-498) 10/15/17 06:00 Problem List - Problems (1) CKD (chronic kidney disease) Assessment/Plan: cr much improved Code(s): N18.9 - CHRONIC KIDNEY DISEASE, UNSPECIFIED (2) Dementia Assessment/Plan: stable Code(s): F03.90 - UNSPECIFIED DEMENTIA WITHOUT BEHAVIORAL DISTURBANCE (3) HTN (hypertension) Assessment/Plan: on toprol now Code(s): I10 - ESSENTIAL (PRIMARY) HYPERTENSION (4) Thrombocytopenia Assessment/Plan: monitor hematology on board levels wnl now Code(s): D69.6 - THROMBOCYTOPENIA, UNSPECIFIED (5) Superficial laceration of face Code(s): S01.81XA - LACERATION W/O FOREIGN BODY OF OTH PART OF HEAD, INIT ENCNTR (6) Leukocytosis Assessment/Plan: oncology note reviewed lymphoma ? 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 JOHANA 2. s/p fall 3. thrombocytopenia 4. HTN 5. leukocytosis 6. anemia 7. sepsis 8. r/o lymphoproliferative disorder 9. hypernatremia 10. CKD
--- NOTE | 2017-10-25 18:18 | CON.GU ---
Consult Consult Specialty:: Referred by:: Alicia Reason for Consultation:: scrotal edema - History of Present Illness Chief Complaint: scrotal swelling History of Present Illness: 82 year old male, from [facility], with a significant past medical history of hypertension and dementia, who presents to the emergency department s/p unwitnessed mechanical fall earlier this morning. The patient reports he was ambulating to the bathroom with his walker, when suddenly he lost his balance and fell, landing on his left leg. He reports associated left leg pain, but denies any head trauma, LOC changes in vision, headache, dizziness, lightheadedness, neck/back/ or hip pain. He denies any other injuries. He developed scrotal edema and cons req. - History Source History Provided By: Medical Record - Past Medical History RN SHIFT MGR: Yes: Dementia Cardio/Vascular: Yes: HTN - Alcohol/Substance Use Hx Alcohol Use: No - Smoking History Smoking history: Never smoked Have you smoked in the past 12 months: No Aproximately how many cigarettes per day: 0 Home Medications - Allergies Allergies/Adverse Reactions: Allergies Allergy/AdvReac Type Severity Reaction Status Date / Time No Known Allergies Allergy Verified 10/11/17 07:50 - Home Medications Home Medications: Ambulatory Orders Aspirin 81 mg PO DAILY 06/14/17 Calcium Carbonate [Oyster Shell Calcium] 500 mg PO DAILY 06/14/17 Cholecalciferol (Vitamin D3) [Vitamin D3 -] 1,000 unit PO DAILY 06/14/17 Docusate Sodium [Colace] 200 mg PO DAILY PRN 06/14/17 Ferrous Sulfate [Iron] 325 mg PO DAILY 06/14/17 Finasteride [Proscar] 5 mg PO DAILY 06/14/17 Loratadine [Claritin -] 10 mg PO DAILY 06/14/17 Nystatin/Triamcinolone Top Cr [Mycolog II -] 1 gm TP BID #1 tube 06/14/17 Oxymetazoline 0.05% Nasal Soln [Afrin -] 2 spray NS BID 06/14/17 Tamsulosin HCl [Flomax] 0.4 mg PO DAILY 06/14/17 Bacitracin - [Bacitracin Topical Ointment -] 1 applic TP TID #1 applic 06/15/17 Metoprolol Succinate [Toprol XL -] 25 mg PO DAILY tab.sr.24h 10/18/17 Family Disease History - Family Disease History Family Disease History: CA: Mother (pancreatic CA) Other Family History: History of CAD and [place] Review of Systems - Review of Systems Genitourinary: reports: No Symptoms Physical Exam- Vital Signs: Vital Signs Temperature 97.5 F L 10/25/17 14:28 Pulse Rate 97 H 10/25/17 16:19 Respiratory Rate 20 10/25/17 16:19 Blood Pressure 108/59 10/25/17 16:19 O2 Sat by Pulse Oximetry (%) 94 L 10/24/17 21:00 Renal/: Yes: Scrotal Edema Labs: CBC, BMP 10/24/17 07:55 10/25/17 06:20 Problem List - Problems (1) Scrotal edema Assessment/Plan: scrotal elevation, diuresis Code(s): N50.89 - OTHER SPECIFIED DISORDERS OF THE MALE GENITAL ORGANS
[2017-10-25] MEDS: RANITIDINE HCL 150 MG TABLET (FP) PO SCH (22:20)
[2017-10-26] MEDS: TAMSULOSIN HCL 0.4 MG CAP.ER.24H (FP) PO SCH (08:30)
[2017-10-26] MEDS: metoPROLOL SUCCINATE 25 MG TAB.SR.24H (FP) PO SCH (09:37)
[2017-10-26] MEDS: ALLOPURINOL 100 MG TABLET (FP) PO SCH (09:38)
[2017-10-26] MEDS: RANITIDINE HCL 150 MG TABLET (FP) PO SCH (09:38)
--- NOTE | 2017-10-26 14:27 | PN ---
Progress Note, Physician History of Present Illness: Pt seen and examined at bedside. He is awake and appears comfortable. - Current Medication List Current Medications: Active Medications Acetaminophen (Tylenol -) 325 mg PO Q6H PRN PRN Reason: PAIN LEVEL 6-10 Last Admin: 10/23/17 09:20 Dose: 325 mg Acetaminophen (Tylenol -) 325 mg PO Q6H PRN PRN Reason: PAIN LEVEL 6-10 Allopurinol (Zyloprim -) 100 mg PO DAILY [facility] Last Admin: 10/26/17 09:38 Dose: 100 mg Metoprolol Succinate (Toprol Xl -) 25 mg PO DAILY [facility] Last Admin: 10/26/17 09:37 Dose: 25 mg Ranitidine HCl (Zantac -) 150 mg PO BID [facility] Last Admin: 10/26/17 09:38 Dose: 150 mg Tamsulosin HCl (Flomax -) 0.4 mg PO DAILY@0830 [facility] Last Admin: 10/26/17 08:30 Dose: 0.4 mg - Objective Vital Signs: Vital Signs Temperature 97.9 F 10/26/17 14:04 Pulse Rate 92 H 10/26/17 14:04 Respiratory Rate 17 10/26/17 14:04 Blood Pressure 96/46 10/26/17 14:04 O2 Sat by Pulse Oximetry (%) 96 10/25/17 10:30 Constitutional: Yes: Calm Eyes: Yes: Conjunctiva Clear HENT: Yes: Atraumatic Neck: Yes: Supple Cardiovascular: Yes: S1, S2 Respiratory: Yes: CTA Bilaterally Gastrointestinal: Yes: Normal Bowel Sounds, Soft Genitourinary: Yes: Scrotal Edema Musculoskeletal: Yes: WNL Edema: Yes Edema: LLE: 2+, RLE: 2+ Neurological: Yes: Confusion Labs: CBC, BMP 10/24/17 07:55 10/25/17 06:20 INR, PTT INR 0.99 (0.82-1.09) 10/15/17 06:00 Fibrinogen 429.0 mg/dL (238-498) 10/15/17 06:00 Problem List - Problems (1) CKD (chronic kidney disease) Code(s): N18.9 - CHRONIC KIDNEY DISEASE, UNSPECIFIED (2) Dementia Code(s): F03.90 - UNSPECIFIED DEMENTIA WITHOUT BEHAVIORAL DISTURBANCE (3) Fall Code(s): W19.XXXA - UNSPECIFIED FALL, INITIAL ENCOUNTER Qualifiers: Encounter type: initial encounter Qualified Code(s): W19.XXXA - Unspecified fall, initial encounter (4) HTN (hypertension) Code(s): I10 - ESSENTIAL (PRIMARY) HYPERTENSION (5) Thrombocytopenia Code(s): D69.6 - THROMBOCYTOPENIA, UNSPECIFIED Assessment/Plan Current Medications Generic Name Dose Route Start Last Admin Trade Name Freq PRN Reason Stop Dose Admin Acetaminophen 325 mg 10/18/17 10:25 10/23/17 09:20 Tylenol - PO 325 mg Q6H PRN Administration PAIN LEVEL 6-10 Acetaminophen 325 mg 10/21/17 14:09 Tylenol - PO Q6H PRN PAIN LEVEL 6-10 Allopurinol 100 mg 10/21/17 10:00 10/26/17 09:38 Zyloprim - PO 100 mg DAILY DAVIDA Administration Metoprolol Succinate 25 mg 10/19/17 10:00 10/26/17 09:37 Toprol Xl - PO 25 mg DAILY DAVIDA Administration Ranitidine HCl 150 mg 10/25/17 22:00 10/26/17 09:38 Zantac - PO 150 mg BID DAVIDA Administration Tamsulosin HCl 0.4 mg 10/18/17 19:00 10/26/17 08:30 Flomax - PO 0.4 mg DAILY@0830 DAVIDA Administration Impression 1. JOHANA 2. s/p fall 3. thrombocytopenia 4. HTN 5. leukocytosis 6. anemia 7. sepsis 8. r/o lymphoproliferative disorder 9. hypernatremia 10. CKD Plan - will give a dose of lasix for edema - monitor renal function - monitor volume status - monitor cbc - oncology input appreciated - johana likely from sepsis and hypotension
[2017-10-26] MEDS ORDERED: FUROSEMIDE 40 MG TABLET (FP) PO SCH (14:30)
--- NOTE | 2017-10-26 15:24 | DS ---
Physical Examination Vital Signs: Vital Signs Temperature 97.9 F 10/26/17 14:04 Pulse Rate 92 H 10/26/17 14:04 Respiratory Rate 17 10/26/17 14:04 Blood Pressure 96/46 10/26/17 14:04 O2 Sat by Pulse Oximetry (%) 96 10/26/17 09:00 Constitutional: Yes: No Distress HENT: Yes: Atraumatic Neck: Yes: Supple Cardiovascular: Yes: Regular Rate and Rhythm Respiratory: Yes: CTA Bilaterally Gastrointestinal: Yes: Normal Bowel Sounds Extremities: Yes: WNL Edema: Yes Edema: LLE: 1+, RLE: 1+ Neurological: Yes: Alert, Oriented Labs: CBC, BMP 10/24/17 07:55 10/25/17 06:20 Discharge Summary Reason For Visit: UNABLE TO WALK,FALL Current Active Problems JOHANA (acute kidney injury) (Acute) Anemia (Acute) CKD (chronic kidney disease) (Acute) Demand ischemia (Acute) Dementia (Acute) Fall (Acute) HTN (hypertension) (Acute) Leukocytosis (Acute) Organic brain syndrome (Acute) Scrotal edema (Acute) Sepsis (Acute) Thrombocytopenia (Acute) Unable to ambulate (Acute) Waldenstrom macroglobulinemia (Acute) Condition: Fair - Instructions Diet, Activity, Other Instructions: Please return to ER if any difficulty walking, fever, chills, altered mental status, or other concerning symptoms. Follow-up with primary care provider as needed for further evaluation. scrotal elevation follow with dr hernandez...urology on lasix for 3 days after that patient should be reassesed check cbc and cmp in 3days spoke with son anirudh barrera and discussed in detail the care plan Referrals: Gonzalo Hernandez MD [Staff Physician] - Caroline Church MD [Staff Physician] - ON STAFF,NOT [Primary Care Provider] - Chey Conner MD [Staff Physician] - - Home Medications Comprehensive Discharge Medication List: Ambulatory Orders Aspirin 81 mg PO DAILY 06/14/17 Calcium Carbonate [Oyster Shell Calcium] 500 mg PO DAILY 06/14/17 Cholecalciferol (Vitamin D3) [Vitamin D3 -] 1,000 unit PO DAILY 06/14/17 Docusate Sodium [Colace] 200 mg PO DAILY PRN 06/14/17 Ferrous Sulfate [Iron] 325 mg PO DAILY 06/14/17 Finasteride [Proscar] 5 mg PO DAILY 06/14/17 Loratadine [Claritin -] 10 mg PO DAILY 06/14/17 Nystatin/Triamcinolone Top Cr [Mycolog II -] 1 gm TP BID #1 tube 06/14/17 Oxymetazoline 0.05% Nasal Soln [Afrin -] 2 spray NS BID 06/14/17 Tamsulosin HCl [Flomax] 0.4 mg PO DAILY 06/14/17 Bacitracin - [Bacitracin Topical Ointment -] 1 applic TP TID #1 applic 06/15/17 Metoprolol Succinate [Toprol XL -] 25 mg PO DAILY tab.sr.24h 10/18/17 Allopurinol [Zyloprim -] 100 mg PO DAILY #30 tablet 10/25/17 Furosemide [Lasix -] 40 mg PO DAILY #3 tablet 10/26/17 dc spoke to diann barrera in detail
--- NOTE | 2017-10-26 15:58 | PN ---
Progress Note, Physician History of Present Illness: awake comfortable no new issues - Current Medication List Current Medications: Active Medications Acetaminophen (Tylenol -) 325 mg PO Q6H PRN PRN Reason: PAIN LEVEL 6-10 Last Admin: 10/23/17 09:20 Dose: 325 mg Acetaminophen (Tylenol -) 325 mg PO Q6H PRN PRN Reason: PAIN LEVEL 6-10 Allopurinol (Zyloprim -) 100 mg PO DAILY [facility] Last Admin: 10/26/17 09:38 Dose: 100 mg Furosemide (Lasix -) 40 mg PO DAILY [facility] Metoprolol Succinate (Toprol Xl -) 25 mg PO DAILY [facility] Last Admin: 10/26/17 09:37 Dose: 25 mg Ranitidine HCl (Zantac -) 150 mg PO BID [facility] Last Admin: 10/26/17 09:38 Dose: 150 mg Tamsulosin HCl (Flomax -) 0.4 mg PO DAILY@0830 [facility] Last Admin: 10/26/17 08:30 Dose: 0.4 mg - Objective Vital Signs: Vital Signs Temperature 97.9 F 10/26/17 14:04 Pulse Rate 92 H 10/26/17 14:04 Respiratory Rate 17 10/26/17 14:04 Blood Pressure 96/46 10/26/17 14:04 O2 Sat by Pulse Oximetry (%) 96 10/26/17 09:00 Constitutional: Yes: No Distress, Calm Cardiovascular: Yes: Regular Rate and Rhythm Gastrointestinal: Yes: Normal Bowel Sounds, Soft Genitourinary: Yes: Scrotal Edema Musculoskeletal: Yes: WNL Extremities: Yes: WNL Integumentary: Yes: Skin Tear Neurological: Yes: Alert Labs: CBC, BMP 10/24/17 07:55 10/25/17 06:20 INR, PTT INR 0.99 (0.82-1.09) 10/15/17 06:00 Fibrinogen 429.0 mg/dL (238-498) 10/15/17 06:00 Assessment/Plan Problem List - Problems (1) CKD (chronic kidney disease) Code(s): N18.9 - CHRONIC KIDNEY DISEASE, UNSPECIFIED (2) Dementia Code(s): F03.90 - UNSPECIFIED DEMENTIA WITHOUT BEHAVIORAL DISTURBANCE (3) Fall Code(s): W19.XXXA - UNSPECIFIED FALL, INITIAL ENCOUNTER Qualifiers: Encounter type: initial encounter Qualified Code(s): W19.XXXA - Unspecified fall, initial encounter (4) HTN (hypertension) Code(s): I10 - ESSENTIAL (PRIMARY) HYPERTENSION (5) Thrombocytopenia Code(s): D69.6 - THROMBOCYTOPENIA, UNSPECIFIED Septic Shock R/O TTP Acute Kidney Injury +Troponins plan stable will continue current mgmt monitor wbc rest as per the team
[2017-10-26 19:15] VITALS: BP 119/61; PULSE 82; TEMP 97.3
== END 2017-10-26 19:59 | DRG 871 ==
LOC: JER 07:41 → SUPCPDRO 07:41 → JERBED 12:58 → J5S 16:57 → J4W 20:46 → OBSVTOIN 21:03 → JICU 10-12 23:02 → J5S 10-18 09:53
PROVIDERS: ADMIT Internal Medicine; ATTEND Internal Medicine
DX: A41.9 Sepsis, unspecified organism (principal); R65.21 Severe sepsis with septic shock; N17.9 Acute kidney failure, unspecified; I24.8 Other forms of acute ischemic heart disease; E87.0 Hyperosmolality and hypernatremia; L03.116 Cellulitis of left lower limb; L97.829 Non-pressure chronic ulcer of other part of left lower leg with unspecified severity; C85.90 Non-Hodgkin lymphoma, unspecified, unspecified site; F03.90 Unspecified dementia, unspecified severity, without behavioral disturbance, psychotic disturbance, mood disturbance, and anxiety; I12.9 Hypertensive chronic kidney disease with stage 1 through stage 4 chronic kidney disease, or unspecified chronic kidney disease; N18.9 Chronic kidney disease, unspecified; D72.829 Elevated white blood cell count, unspecified; D69.6 Thrombocytopenia, unspecified; D64.9 Anemia, unspecified; F09 Unspecified mental disorder due to known physiological condition; R41.82 Altered mental status, unspecified; N50.89 Other specified disorders of the male genital organs; E88.09 Other disorders of plasma-protein metabolism, not elsewhere classified; I95.9 Hypotension, unspecified; N40.0 Benign prostatic hyperplasia without lower urinary tract symptoms; L89.159 Pressure ulcer of sacral region, unspecified stage; C88.0 Waldenstrom macroglobulinemia
CPT/HCPCS: 36415; 70450-TC; 71045-TC-FY; 72125-TC; 73523-TC-FY; 73552-TC-LT-FY; 73562-TC-LT-FY; 73590-TC-LT-FY; 73610-TC-LT-FY; 73610-TC-RT-FY; 73630-TC-LT; 73630-TC-RT-FY; 76700-TC; 76775-TC; 80048; 80053; 81003; 81015; 82248; 82272; 82550; 82553; 82570; 82607; 82746; 82784; 82962; 83010; 83516; 83520; 83605; 83615; 83735; 84100; 84155; 84156; 84165; 84300; 84484; 85025; 85027; 85384; 85610; 85730; 85810; 86038; 86225; 86256; 86334; 86704; 86706; 86708; 86850; 86880; 86900; 86901; 87040; 87086; 87340; 87522; 88300-TC; 93005; 93010; 93306-TC; 93970-TC; 94010; 97116-GP; 97161-GP; 99285-25; G0378; J0131; J7030